=== PATIENT | female | born 1955 | race Caucasian/White ===

== ENCOUNTER 2017-11-04 12:21 | Emergency (ER) | payer OTHER, SELFPAY ==
[2017-11-04 12:22] VITALS: BP 151/78; PULSE 72; RESP 16; TEMP 37.2; O2SAT 100; BMI 29.6
[2017-11-04] MEDS: Diphth,Pertuss(Acell),Tet Vac 0.5 ML Vial IM (13:04)
--- NOTE | 2017-11-04 13:41 | RAD_ITS ---
STUDY: X-RAY - RIGHT KNEE REASON FOR EXAM: Female, 62 years old. Fall today. Anterior pain. TECHNIQUE: 4 view(s) of the knee. COMPARISON: None. FINDINGS: Normal visualized distal femur. Normal visualized proximal tibia and fibula. Normal proximal tibiofibular articulation. Normal medial femorotibial compartment. Normal lateral femorotibial compartment. Normal patellofemoral articulation. There is a 4 mm in diameter radiopaque foreign body embedded within the midportion of the patella. There is subcutaneous gas. RAD/Knee 4 or More Views IMPRESSION: 4 mm in diameter radiopaque foreign body with soft tissue gas as described. Electronically Signed: Maximilian Gamboa MD at 15:26 EDT , Service support ,
--- NOTE | 2017-11-04 13:55 | ED.DCSUM_ITS ---
- ER Visit Summary Date of Service: 11/04/17 Chief Complaint: Patient was walking in the parking lot toward her car when she fell injuring her right knee. History of Present Illness: The patient is a 62 F who presents because of knee pain after fall.She localizes the pain medial to the patella and over the inferior patella tendon. Is able to extend her leg. She states she has minimal movement because of pain. She states she has increased pain with weightbearing. Immunization is not known. She has no other complaints please read written note for complete detail Physical Examination: Examination of the right knee reveals swelling lateral the right patella. The patella is not ballotable nor is it tender. There is no joint line tenderness. There is no laxity with varus valgus stress testing compared to the uninjured extremity. Julia's test was negative. Moderate Cristian's was limited second to pain; however, there was no click. DP PT pulses are palpable. The remainder of her right lower extremity exam is unremarkable. Test Results: 4 view x-ray of the knee reveals a metallic foreign body Emergency Department Course and Treatment: After suturing patient complained of significant pain and there is a small area of tenderness and abnormality. For this reason an x-ray was obtained. Treatment Plan: Patient received tetanus immunization update and repair of her laceration. The wound was anesthetized with lidocaine. Wound was irrigated with 100 cc normal saline. Using 4-0 Vicryl 1 horizontal mattress stitch was placed with good cosmesis and hemostasis. After suturing the patient and speaking with her she states she feels something very painful. Upon reexamination there is a palpable mass that is between the inferior pole of patella and tibial tuberosity. In light of this and x-ray was obtained to determine if this is a avulsion fracture versus foreign body. Stitch that was placed was removed. The laceration was enlarged. Blunt dissection was undertaken. The foreign body was visualized. After dissecting gently the tissue away from the foreign body the Charline and metallic foreign body were removed in total. The Charline is from her gene. Since the foreign body may have been embedded in the infrapatellar tendon she was placed on antibiotics. The laceration was closed using 4-0 Ethilon. 2 simple interrupted sutures was placed. Disposition: Charge to home with appropriate home-going instructions, follow-up and prescription for cephalexin Impression: 1. Left knee contusion secondary to fall initial encounter 2. Laceration 1.0 cm 3. Removal of foreign body This note was generated with [employer] dictation software. It may contain incorrect words, spelling, and punctuation that were not noted in review of the chart prior to signing ED Disposition - Plan for ED Patient: Disposition: Home or Assisted Living Chief Complaint: Lower Extremity Injury Instructions: ED Laceration Ext Sutr Stap Tape, ED Foreign Body Soft Tissue Removed Prescriptions: Cephalexin 500 mg PO Q8 #14 cap Referrals: Care Physician,Rach Primary [Primary Care Provider] - Enriqueta Mora [ALLIED HEALTH PROFESSIONAL] - 2 Days for wound check Additional Instructions: Sutures out in 10 days. Take antibiotics until gone. Clean wound with peroxide on Q-tips and then apply bacitracin 3 times a day. Your prescription was electronically sent to [facility] pharmacy
[2017-11-04 15:43] VITALS: BP 148/74; PULSE 69; RESP 16; O2SAT 100
== END 2017-11-04 15:44 | disposition home or self-care (01) ==
PROVIDERS: Emergency Provider Emergency Medicine
DX: S81.021A Laceration with foreign body, right knee, initial encounter (principal); S80.01XA Contusion of right knee, initial encounter; W18.30XA Fall on same level, unspecified, initial encounter; Y93.01 Activity, walking, marching and hiking; Y92.481 Parking lot as the place of occurrence of the external cause; I10 Essential (primary) hypertension; E66.9 Obesity, unspecified; Z68.29 Body mass index [BMI] 29.0-29.9, adult
CPT/HCPCS: 12001; 73564; 90471; 90715; 99284

== ENCOUNTER 2019-04-16 20:07 | Emergency (ER) | payer OTHER, SELFPAY ==
[2019-02-08 10:35] VITALS: BMI 29.6
[2019-04-16 20:09] VITALS: BP 161/94; PULSE 89; RESP 16; TEMP 37.1; O2SAT 99; BMI 30.9
--- NOTE | 2019-04-16 20:23 | ED.RN ---
RN CALLED FOR EKG, PULLED OLD EKGS FOR
--- NOTE | 2019-04-16 20:55 | EKG12_ITS ---
Test Reason : CP Blood Pressure : / mmHG Vent. Rate : 085 BPM Atrial Rate : 085 BPM P-R Int : 154 ms QRS Dur : 070 ms QT Int : 358 ms P-R-T Axes : 040 -10 027 degrees QTc Int : 426 ms Normal sinus rhythm Moderate voltage criteria for LVH, may be normal variant Nonspecific ST abnormality Abnormal ECG Confirmed by NINA SEVILLA ([id number]), department editor LEONIE BURGOS ([id number]) on 04/17/2019 1:36:41 PM Referred By: Confirmed By:NINA SEVILLA
--- NOTE | 2019-04-16 21:00 | RAD_ITS ---
HISTORY: Chest pain 1 week from fall XR Chest 1 View TECHNIQUE: Single frontal view of chest. # of images incl. paperwork: 1 COMPARISON: None. FINDINGS: LINES: None. CARDIOVASCULAR STRUCTURES: Normal cardiomediastinal silhouette. Pulmonary vasculature appears normal. LUNGS: The lungs are clear. PLEURA: No pleural effusions or pneumothorax. BONES: No acute osseous abnormality of the thorax. RAD/Chest 1 View (Portable) IMPRESSION: 1. No acute cardiopulmonary disease. at 2310 Reported and signed by: Bhaskar Balderas MD Electronically Signed: Bhaskar Balderas MD at 23:09 EDT Tel , Service support ,
--- NOTE | 2019-04-16 21:27 | CT_ITS ---
HISTORY: Status post fall with abdominal pain COMPARISON: 10/11/2010 TECHNIQUE: Helical CT axial images from the lung bases to the pubic symphysis with 75 ml of Isovue 370 intravenous contrast. Multiplanar reconstruction. No oral contrast was administered. A radiation dose optimization technique was used for this scan. # of images incl. paperwork: 403 FINDINGS: LUNG BASES: No basilar consolidation or effusions. LIVER: Normal in size and attenuation. No focal masses. HEPATOBILIARY: Status post cholecystectomy. No intra- or extrahepatic ductal dilatation. SPLEEN: Normal size. PANCREAS: Normal size and contour. No focal mass. ADRENAL GLANDS: Stable appearance of left adrenal gland 0.8 cm hypodense nodule. Normal right adrenal gland. KIDNEYS: No obstructing calculi or hydronephrosis bilaterally. No nephrolithiasis. No focal solid renal mass. No significant cysts are present. BOWEL AND MESENTERY: Diffuse colonic fecal retention without bowel dilatation. No small or large bowel dilatation. No colonic diverticulosis. Normal appendix. No abnormal mesenteric lymphadenopathy. No free fluid or pneumoperitoneum. RETROPERITONEUM:Normal caliber abdominal aorta without aneurysm. No abnormal retroperitoneal lymphadenopathy. PELVIS:Urinary bladder is unremarkable.Uterus and adnexal structures are unremarkable. ABDOMINAL WALL: The abdominal wall is intact. BONES: No acute fracture. No suspicious osseous lytic or blastic lesions seen. CT/Abdomen/Pelvis WITH Contrast IMPRESSION: 1. No acute disease or evidence for traumatic injury to abdominal organs or viscera. 2. Status post cholecystectomy. 3. Left adrenal gland 0.8 cm hypodense nodule, most likely representing adenoma, unchanged from September 2010. Individualized dose optimization techniques were used for this CT. at 2224 Reported and signed by: Bhaskar Balderas MD Electronically Signed: Bhaskar Balderas MD at 22:23 EDT Tel , Service support ,
--- NOTE | 2019-04-16 21:27 | CT_ITS ---
HISTORY: Right sided chest wall pain, status post fall COMPARISON: None. TECHNIQUE: Helical CT axial images of the thorax with 75 ml of Isovue 370 intravenous contrast. Multiplanar reconstruction. 3-D image processing was also performed. A radiation dose optimization technique was used for this scan. # of images incl. paperwork: 1090 FINDINGS: VASCULAR: No filling defects are seen within the pulmonary arteries. Normal contrast opacification of the pulmonary arteries. Thoracic aorta is normal in caliber without aneurysm. No aortic dissection. The pulmonary vasculature demonstrates no significant dilatation. LUNGS: The lung parenchyma is clear. No pulmonary masses or suspicious nodules. MEDIASTINUM: No abnormally enlarged mediastinal or hilar nodes. PLEURA: No pleural effusion. No pneumothorax. CARDIAC: Normal heart size. No pericardial effusion. CHEST WALL: Old left healed anterior left third through sixth rib fractures. No acute rib fracture. Chest wall is intact. No abnormal axillary lymphadenopathy. BONES: No suspicious osseous lytic or blastic lesions seen. UPPER ABDOMEN: The visualized upper abdomen demonstrates no acute abnormality. CT/CTA Chest W/WO Contrast IMPRESSION: 1. No acute pulmonary embolus. 2. No acute disease or evidence for traumatic injury to chest. 3. Old healed left anterior third through sixth rib fractures. Individualized dose optimization techniques were used for this CT. at 2228 Reported and signed by: Bhaskar Balderas MD Electronically Signed: Bhaskar Balderas MD at 22:27 EDT Tel , Service support ,
[2019-04-16 21:33] LABS: Absolute Lymphocyte Count 2.21 X10^3/uL (0.83-4.51); Absolute Neutrophil Count 4.8 X10^3/uL (2.0-7.7); Basophil# 0.05 X10^3/uL; Basophil% 0.6 % (0-1); Eosinophil# 0.17 X10^3/uL; Eosinophils% 2.2 % (0-5); Hematocrit 38.7 % (37-47); Hemoglobin 12.4 g/dL (12.0-15.0); Lymphocyte # 2.21 X10^3/ul (4.0); Lymphocyte % 28.4 % (19-41); Mean Corpuscular Hgb 28.2 pg (27.0-32.0); Mean Corpuscular Volume 88.2 fL (81-99); Mean Platelet Vol. 10.3 fl (6.2-12.0); Monocyte# 0.56 X10^3/uL; Monocyte% 7.2 % (0-10); NRBC Flagged by Analyzer 0 % (0-5); Neutrophil # 4.77 X10^3/uL (2.7-7.7); Neutrophil % 61.5 % (47-70); Platelet Count 278 K/mm3 (150-450); RBC Distribution Width CV 13.2 % (11.6-14.6); RBC Distribution Width SD 43.3 fl (35.1-43.9); Red Blood Count 4.39 M/mm3 (4.2-5.4); White Blood Count 7.8 K/mm3 (4.4-11.0)
[2019-04-16] MEDS: Morphine 4 MG/ML Syringe IV (21:35)
[2019-04-16] MEDS: Ondansetron 4 MG/2 ML Vial IV (21:35)
[2019-04-16 21:42] LABS: Anion Gap 7 (5-15); BUN 21 mg/dL (7-18); BUN/Creat Ratio 20.6 RATIO (10-20); Calcium,Total 9.3 mg/dL (8.5-10.1); Chloride 104 mmol/L (98-107); Creatinine, Serum 1.02 mg/dL (0.55-1.02); EST Glomerular Filtration Rate 58 mL/min (>60); Est Glom Filt Rate - Afr Amer 71 mL/min (>60); Estimated Creatinine Clearance 43.15 ml/min; Glucose 98 mg/dL (74-106); Potassium 3.7 mmol/L (3.5-5.1); Sodium Level 140 mmol/L (136-145)
[2019-04-16 22:24] VITALS: BP 145/86; PULSE 95; RESP 14; O2SAT 93
--- NOTE | 2019-04-16 23:06 | ED.DEP ---
ED Disposition - Plan for ED Patient: Instructions: Chest Wall Contusion Prescriptions: Oxycodone HCl/Acetaminophen [Percocet 5/325] 1 tablet PO Q6H PRN PRN 3 Days #12 tablet PRN Reason: Pain Referrals: Enriqueta Mora NP-C [Primary Care Provider] -
--- NOTE | 2019-04-16 23:12 | ED.VISSUMM ---
- ER Visit Summary Date of Service: 04/16/19 Chief Complaint: Chest wall pain History of Present Illness: The patient is a 64 F presenting with chest wall pain. Patient states she fell approximately 8 days ago. [place] fell. She did not hit her head or lose consciousness. She has an abrasion to her right lower extremity and has left chest wall pain. Chest wall pain is worsened with different positions and movement. It has been constant for the past several days. Tetanus is up-to-date. She has been taking amoxicillin for her abrasion. She has been taking ibuprofen. She denies shortness of breath. Denies other complaints. Physical Examination: Vitals are stable. Patient is afebrile. Alert no acute distress. HEENT exam is unremarkable. Neck is nontender Lungs are clear and equal bilaterally. Left chest wall tenderness with no crepitus Heart is regular rate and rhythm. Abdomen is soft nontender nondistended. Extremities healing abrasion right lower extremity Skin is warm and dry. No focal neurologic deficit. Remainder of exam is unremarkable. Emergency Department Course and Treatment: EKG is sinus rhythm rate of 85 with no acute ischemic changes. Patient was given morphine, Zofran IV. CBC, chemistries unremarkable. Troponin is negative. CTA chest shows no acute pulmonary embolus. No acute disease or evidence for traumatic injury to chest. Old healed left anterior third through sixth rib fractures. CT abdomen pelvis with IV only contrast shows no acute disease or evidence for traumatic injury to abdominal organs or viscera. Status post cholecystectomy. Left adrenal gland 0.8 cm hypodense nodule, most likely representing adenoma, unchanged from September 2010. Patient is feeling improved on reevaluation. She is given a prescription for short course of Percocet. She is given an incentive spirometer. Advised to follow-up with her primary care physician. Advised return to ED for worsening complaints. Disposition: Discharge home Impression: Chest wall contusion status post mechanical fall This note was generated with [employer] dictation software. It may contain incorrect words, spelling, and punctuation that were not noted in review of the chart prior to signing ED Disposition - Plan for ED Patient: Instructions: Chest Wall Contusion Prescriptions: Oxycodone HCl/Acetaminophen [Percocet 5/325] 1 tab PO Q6H PRN PRN 3 Days #12 tab PRN Reason: Pain Prescription Printed Referrals: Enriqueta Mora, [employer] MANAGER-C [Primary Care Provider] -
== END 2019-04-16 23:39 | disposition home or self-care (01) ==
PROVIDERS: Emergency Provider Emergency Medicine; Family Provider Nurse Practitioner; PCP Nurse Practitioner
DX: S20.212A Contusion of left front wall of thorax, initial encounter (principal); W01.0XXA Fall on same level from slipping, tripping and stumbling without subsequent striking against object, initial encounter; Y93.89 Activity, other specified; Y92.89 Other specified places as the place of occurrence of the external cause; Y99.9 Unspecified external cause status; I10 Essential (primary) hypertension; Z79.899 Other long term (current) drug therapy
CPT/HCPCS: 71045; 71275; 74177; 80048; 84484; 85025; 93005; 96374; 96375; 99284; Q9967; A4216; J2405

== ENCOUNTER → 2019-04-17 14:09 | Outpatient (CLI) | payer OTHER, SELFPAY ==
[2019-04-16 20:09] VITALS: BMI 30.9
[2019-04-17 15:00] LABS: Vitamin B12 > 2000 pg/mL (211-911); Vitamin D,25 Hydroxy 58.5 ng/mL (29.95-100.01)
[2019-04-17 15:09] LABS: Hemoglobin A1c 5.6 % (4.2-6.3)
[2019-04-17 15:38] LABS: Cholesterol 168 mg/dL (200); Folates, (Folic Acid) > 100.00 ng/mL (3.1-55.4); High Density Lipoprotein 69 mg/dL; Triglycerides 99 mg/dL; Very Low Density Lipoprotein 20 mg/dL (5-40)
== END ==
PROVIDERS: Family Provider Nurse Practitioner; PCP Nurse Practitioner; Referring Provider Nurse Practitioner; Visit Provider Nurse Practitioner
DX: R73.01 Impaired fasting glucose (principal); E78.00 Pure hypercholesterolemia, unspecified; E53.8 Deficiency of other specified B group vitamins; E55.9 Vitamin D deficiency, unspecified
CPT/HCPCS: 80061; 82306; 82607; 82746; 83036

== ENCOUNTER 2021-04-24 13:14 | Emergency (ER) | payer OTHER, SELFPAY ==
[2021-04-24 13:15] VITALS: BP 169/96; PULSE 118; RESP 19; TEMP 36.7; O2SAT 100; BMI 30.2
--- NOTE | 2021-04-24 14:06 | RAD_ITS ---
STUDY: X-RAY CHEST REASON FOR EXAM: Female, 66 years old. sob TECHNIQUE: Frontal portable view of the chest COMPARISON: 16 April 2019 FINDINGS: The lungs are clear and expanded. There is no demonstrated pleural abnormality. Normal size heart. Normal mediastinum and adri. Normal visualized pulmonary arteries. Normal visualized aortic arch and descending thoracic aorta. Normal visualized thoracic spine. Normal visualized ribs, clavicles, and shoulders. There is no demonstrated abnormality of the visualized soft tissue structures of the upper abdomen. RAD/Chest 1 View (Portable) IMPRESSION: Normal x-ray examination of the chest. Electronically Signed: Jasmin Agrawal MD at 15:27 EDT Tel , Service support ,
--- NOTE | 2021-04-24 14:06 | CT_ITS ---
STUDY: CT BRAIN WITHOUT CONTRAST REASON FOR EXAM: Female, 66 years old. Trauma RADIATION DOSAGE (If Supplied By Facility): CTDIvol = ( 44.99 ) mGy, DLP = ( 779.24 ) mGycm TECHNIQUE: Transaxial CT imaging of the brain was performed without administration of intravenous contrast material. Individualized dose optimization techniques were used for this CT. COMPARISON: October 29, 2015 CT head, FINDINGS: Normal soft tissue structures. Normal calvarium. There is mild cerebral atrophy with widening of the extra-axial spaces and ventricular dilatation. Normal white matter tracts of the cerebral hemispheres. Normal basal ganglia and thalami. Normal brainstem. There is mild cerebellar atrophy. There is no intracranial hemorrhage. There are no findings of an acute ischemic infarction. Normal visualized paranasal sinuses. CT/Brain/Head without Contrast IMPRESSION: Atrophy no evidence of acute hemorrhage infarct or edema. Electronically Signed: Nunu Bernard MD at 15:18 EDT Tel , Service support ,
--- NOTE | 2021-04-24 14:06 | CT_ITS ---
EXAM: CT CERVICAL SPINE WITHOUT INTRAVENOUS CONTRAST : 1955 CLINICAL INDICATION: trauma TECHNIQUE: Helically acquired images were obtained of the cervical spine without intravenous contrast. 2D reformatted images were reviewed. This CT exam was performed using one or more of the following dose reduction techniques: automated exposure control, adjustment of the mA and/or kV according to patient size, and/or use of iterative reconstruction technique. This report was created using [employer] report generation technology. COMPARISON: None. FINDINGS: VERTEBRAE: Unremarkable. No fracture. No traumatic subluxation. No discrete lytic or blastic abnormality. Normal alignment. Normal craniocervical junction and cervicothoracic junction. DISCS/SPINAL CANAL/NEURAL FORAMINA: There is disc space narrowing at C4-5 and C6 - 7. There is left bony neural foraminal narrowing at C5-6. SOFT TISSUES: Unremarkable. No prevertebral soft tissue swelling. LYMPH NODES: Unremarkable. No cervical adenopathy. LUNG APICES: Unremarkable as visualized. Clear. CT/Spine Cervical without Contras IMPRESSION: 1. No acute osseous abnormalities of the cervical spine. 2. Degenerative changes with disc space narrowing and bony neural foraminal narrowing. Individualized dose optimization techniques were used for this CT. at 1529 Reported and signed by: Prosper Ferrer MD Electronically Signed: Prosper Ferrer MD at 15:28 EDT Tel , Service support ,
[2021-04-24] MEDS: HYDROcodone Bitartrate/Apap 5/325 Tablet PO (14:19)
[2021-04-24] MEDS: Ondansetron ODT 4 MG Tablet PO (14:19)
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
[2021-04-24 16:22] VITALS: BP 155/87; PULSE 82; RESP 16; O2SAT 100
[2021-04-24 16:25] VITALS: BP 155/87; PULSE 82; RESP 16; O2SAT 100
== END 2021-04-24 16:23 | disposition home or self-care (01) ==
PROVIDERS: Emergency Provider Emergency Medicine; PCP Nurse Practitioner
DX: S06.0X0A Concussion without loss of consciousness, initial encounter (principal); V49.88XA Car occupant (driver) (passenger) injured in other specified transport accidents, initial encounter
CPT/HCPCS: 70450; 71045; 72125; 87426; 99282

== ENCOUNTER 2021-06-22 13:49 | Emergency (ER) | payer OTHER, SELFPAY ==
[2021-06-22 13:49] VITALS: BP 149/102; PULSE 136; RESP 16; TEMP 36.8; O2SAT 98; BMI 28.9
--- NOTE | 2021-06-22 13:52 | RAD_ITS ---
STUDY: X-RAY CHEST REASON FOR EXAM: Female, 66 years old. Chest pain TECHNIQUE: Single AP portable view of the chest. COMPARISON: Comparison is made with prior study dated 04/24/2021. FINDINGS: EKG electrodes are seen There is elevation of the right hemidiaphragm. The lungs are clear. There is no demonstrated pleural abnormality. Normal size heart. Normal mediastinum and adri. Normal visualized pulmonary arteries. There is atherosclerotic tortuosity of the aortic arch and descending thoracic aorta. Normal visualized thoracic spine. Normal visualized ribs, clavicles, and shoulders. There is no demonstrated abnormality of the visualized soft tissue structures of the upper abdomen. RAD/Chest 1 View (Portable) IMPRESSION: No acute abnormality is seen. Electronically Signed: Keanu Boone MD at 15:46 EST , Service support ,
--- NOTE | 2021-06-22 13:52 | EKG12_ITS ---
Test Reason : CP Blood Pressure : / mmHG Vent. Rate : 122 BPM Atrial Rate : 122 BPM P-R Int : 152 ms QRS Dur : 064 ms QT Int : 304 ms P-R-T Axes : 052 001 121 degrees QTc Int : 433 ms Sinus tachycardia with Premature atrial complexes Possible Left ventricular hypertrophy ST segment abnormality: Consider LVH repolarization; Myocardial ischemia; metabolic effect; medicatio n effect Abnormal ECG Confirmed by NELDA PAYNE, LORIE ([id number]), editor department JAGDISH ARAGON ([id number]) on 06/24/2021 8:51:07 AM Referred By: JAY/DEN Confirmed By:LORIE LUTZ MD
--- NOTE | 2021-06-22 14:17 | CT_ITS ---
STUDY: CTA CHEST AND CTA ABDOMEN/PELVIS WITH CONTRAST REASON FOR EXAM: Female, 66 years old. Chest pain. Left shoulder pain. RADIATION DOSAGE (If Supplied By Facility): CTDIvol = ( 13.12 ) mGy, DLP = ( 907.34 ) mGycm TECHNIQUE: The examination was performed with the intravenous administration of IV 100mL Isovue-370. Post-processing of the angiographic images was performed, with multiplanar reformation and 3D reconstruction. Individualized dose optimization techniques were used for this CT. COMPARISON: No relevant priors. FINDINGS: CTA Chest Normal enhancement of the main pulmonary artery and right and left pulmonary arteries. Normal enhancement of the bilateral peripheral pulmonary arteries. There is no demonstrated pulmonary embolism. Normal thoracic aorta and visualized great vessels. There is no demonstrated aortic dissection. Normal heart and pericardium. Normal mediastinum. Normal hilar regions. Normal visualized trachea and bronchi. The lungs are well expanded. Normal pulmonary parenchyma. Normal pleura. Normal chest wall structures. Normal osseous structures. Normal visualized upper abdomen. CT Abdomen T Pelvis There is decreased attenuation of the liver consistent with steatosis. The patient is status post cholecystectomy. Normal spleen. Normal pancreas. There is a small, circumscribed, smooth, low attenuation left adrenal mass, consistent with an adrenal adenoma. This measures 1.3 cm. Normal right adrenal gland. Normal right kidney. Normal left kidney. Normal visualized stomach. Normal small intestine. Normal colon. The appendix is visualized and appears normal. Normal abdominal aorta. Normal inferior vena cava. Normal retroperitoneum. Normal urinary bladder. Normal abdominal wall. Prior fusion at the L4-L5 level. Anterior listhesis of L4 on L5. CT/CTA Chst, Abd, Pel W and/or WO IMPRESSION: No acute abnormality is seen. Electronically Signed: Keanu Boone MD at 15:43 EST , Service support ,
--- NOTE | 2021-06-22 14:23 | EX.ED.DYSGE1 ---
HPI History of Present Illness Chief Complaint: Chest Pain Narrative Narrative: Patient is a 66-year-old female who states she has had constant chest/back pain since Monday. She denies any trauma prior to the pain beginning. She states the pain began around her left scapula and is sharp in nature and then over time has progressed to shoot to the front of her left chest. She denies any nausea vomiting diaphoresis or shortness of breath associated with this. She denies any previous DVT or PE but does admit to driving constantly. She states that symptoms have not resolved spontaneously and secondary to this presents for evaluation [facility] Medical History (Updated 06/22/21 @ 17:[address] 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 HTN (hypertension) Incontinence Limb weakness Migraines Home Medications hydrochlorothiazide 25 mg PO DAILY 04/04/16 [History Last Taken 06/22/21] duloxetine 60 mg capsule,delayed release 60 mg PO DAILY #30 cap 02/08/19 [History Last Taken 06/22/21] calcium carbonate [Calcium 500] 500 mg PO DAILY 06/22/21 [History Last Taken 06/22/21] cholecalciferol (vitamin D3) 125 mcg PO DAILY 06/22/21 [History Last Taken 06/22/21] cyanocobalamin (vitamin B-12) 1,000 mcg PO DAILY 06/22/21 [History Last Taken 06/22/21] hydrocodone-acetaminophen 1 tab PO Q6H PRN 5 Days #20 tab 06/22/21 [Rx Last Taken Unknown] methylphenidate HCl 20 mg PO DAILY 06/22/21 [History Last Taken 06/22/21] multivitamin 1 tab PO DAILY 06/22/21 [History Last Taken 06/22/21] Allergy/AdvReac Type Severity Reaction Status Date / Time No Known Allergies Allergy Verified 06/22/21 13:51 Family History Other Diabetes Heart disease Hypertension Surgical History Hx of cholecystectomy Social History (Updated 02/08/19 @ 11:00 by Miguel NELSON, PA) Smoking Status: Never smoker alcohol intake: current alcohol intake frequency: a few times a month Alcohol type: beer and wine ROS ROS ED Constitutional Constitutional ED: Denies chills or fever(s) ENT ENT ED: Denies sore throat Cardiovascular Cardiovascular: Reports chest pain; Denies palpitations or racing heartbeat Respiratory/Chest Respiratory/Chest: Denies cough or dyspnea Gastrointestinal Gastrointestinal: Denies abdominal pain, diarrhea, nausea or vomiting Genitourinary Genitourinary ED: Denies dysuria Musculoskeletal Musculoskeletal: Reports back pain; Denies myalgias Integumentary Denies rash Neurologic Neurologic: Denies headache(s) Hematologic/Lymphatic Hematologic/Lymphatic: Denies easy bleeding or easy bruising EXAM Physical Exam Const Vital Signs: 06/22/21 13:49 06/22/21 14:13 06/22/21 15:35 Temperature 98.3 F Temperature Source Temporal Pulse Rate 136 H 95 Respiratory Rate 16 19 H Respiratory Effort Normal Non-Labored Blood Pressure 149/102 H 129/71 H Blood Pressure Mean 117 90 Pulse Ox 98 99 Oxygen Delivery Method Room Air Room Air Room Air 06/22/21 16:06 Temperature Temperature Source Pulse Rate 93 Respiratory Rate 16 Respiratory Effort Blood Pressure 141/84 H Blood Pressure Mean 103 Pulse Ox 97 Oxygen Delivery Method Room Air Positive well nourished and well developed General Appearance ED: well developed HEENT Reports moist mucous membranes Eyes PERRL and EOMs intact bilaterally Neck supple Chest Wall palpation of chest normal Resp normal respiratory effort and clear to auscultation bilaterally Cardio regular rate and regular rhythm Rate: other Other Details: Radial pulses are +2-4 bilaterally are equal and symmetric GI normal to inspection, nondistended, normoactive bowel sounds, non-tender, non-distended and no masses GI Narrative: No voluntary guarding or rigidity no pulsatile mass Auscultation: normoactive bowel sounds Palpation: soft Back/Spine no CVA tenderness Extremity Extremity Narrative: Trace asymmetric nonpitting edema to the left leg compared to right with positive Homans' sign on left Neuro oriented x3 and CN's II-XII intact bilaterally Sensorium / Orientation: alert Motor Exam: strength 5/5 throughout Psych mental status grossly normal Skin no rashes or lesions noted MDM MDM MDM Narrative Medical decision making narrative: Patient presented to the ER tachycardic but otherwise in no acute distress with stable vitals. Her chest pain has been constant for 3 days and was not classic cardiac in nature. However she does drive quite often and therefore I elected to perform a CTA with concern for PE versus is aneurysm/dissection. The patient's troponin is normal going against heart damage with 3 days of constant pain and her CTA reveals no acute findings. Therefore this time I do not feel this is cardiac in nature and it is most likely related to ruptured disks in her neck. 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 Labs: Laboratory Results - last 24 hr 06/22/21 06/22/21 06/22/21 14:10 14:10 14:10 WBC 6.7 RBC 4.88 Hgb 13.7 Hct 41.4 MCV 84.8 MCH 28.1 MCHC 33.1 RDW Std Deviation 40.8 RDW Coeff of Kevin 13.1 Plt Count 329 MPV 9.9 Immature Gran % (Auto) 0.100 Neut % (Auto) 62.2 Lymph % (Auto) 28.2 [place] % (Auto) 7.8 Eos % (Auto) 1.0 Baso % (Auto) 0.7 Absolute Neuts (auto) 4.1 Absolute Lymphs (auto) 1.88 Nucleated RBC % 0 PT 12.7 INR 1.0 APTT 28.4 Sodium 137 Potassium 3.2 L Chloride 100 Carbon Dioxide 29.0 Anion Gap 8 BUN 12 Creatinine 1.02 Estim Creat Clear Calc 44.07 Est GFR (MDRD) Af Amer 70 Est GFR (MDRD) Non-Af 58 L BUN/Creatinine Ratio 11.8 Glucose 131 H Calcium 9.5 Magnesium 2.1 Troponin I High Sens 8 TSH 0.59 Radiography Diagnostic Testing: Clinical Impression(s) from Imaging Studies Chest X-Ray 06/22/21 13:52 IMPRESSION: No acute abnormality is seen. Electronically Signed: Keanu Boone MD at 15:46 EST , Service support , Chest/Abdomen/Pelvis CTA 06/22/21 14:17 IMPRESSION: No acute abnormality is seen. Electronically Signed: Keanu Boone MD at 15:43 EST , Service support , Discharge Plan Triage Chief Complaint: Chest Pain ED Provider: Frankie Ni Dx/Rx/DC Orders Clinical Impression: Nonspecific chest pain, Sinus tachycardia Instructions: ED Chest Pain, Noncardiac Prescriptions: New hydrocodone-acetaminophen 5-325 mg tablet 1 tab PO Q6H PRN (Reason: pain) 5 Days Qty: 20 RF: 0 No Action duloxetine 60 mg capsule,delayed release(DR/EC) 60 mg PO DAILY Qty: 30 RF: 0 hydrochlorothiazide 25 MG tablet 25 mg PO DAILY RF: 0 multivitamin Tablet 1 tab PO DAILY RF: 0 methylphenidate HCl 20 mg tablet 20 mg PO DAILY RF: 0 cyanocobalamin (vitamin B-12) 1,000 mcg Tablet 1,000 mcg PO DAILY RF: 0 calcium carbonate [Calcium 500] 500 mg calcium (1,250 mg) Tablet 500 mg PO DAILY RF: 0 cholecalciferol (vitamin D3) 125 mcg (5,000 unit) Capsule 125 mcg PO DAILY RF: 0 Primary Care Provider: Enriqueta Mora NP Referrals: Enriqueta Mora SALES TRAINEE, SALES TRAINEE-C [Primary Care Provider] - Disposition Disposition: Home, Self Care
[2021-06-22 14:26] LABS: Absolute Lymphocyte Count 1.88 X10^3/uL (0.83-4.51); Absolute Neutrophil Count 4.1 X10^3/uL (2.0-7.7); Basophil# 0.05 X10^3/uL; Basophil% 0.7 % (0-1); Eosinophil# 0.07 X10^3/uL; Hematocrit 41.4 % (37-47); Hemoglobin 13.7 g/dL (12.0-15.0); Lymphocyte # 1.88 X10^3/ul (0.83-4.51); Lymphocyte % 28.2 % (19-41); Mean Corp Hgb Conc 33.1 g/dL (32-36); Mean Corpuscular Hgb 28.1 pg (27.0-32.0); Mean Corpuscular Volume 84.8 fL (81-99); Mean Platelet Vol. 9.9 fl (6.2-12.0); Monocyte# 0.52 X10^3/uL; Monocyte% 7.8 % (0-10); NRBC Flagged by Analyzer 0 % (0-5); Neutrophil # 4.14 X10^3/uL (2.7-7.7); Neutrophil % 62.2 % (47-70); Platelet Count 329 K/mm3 (150-450); RBC Distribution Width CV 13.1 % (11.6-14.6); RBC Distribution Width SD 40.8 fl (35.1-43.9); Red Blood Count 4.88 M/mm3 (4.2-5.4); White Blood Count 6.7 K/mm3 (4.4-11.0)
[2021-06-22] MEDS: 0.9% Normal Saline 1,000 ML 999 ML IV (14:28)
[2021-06-22 14:45] LABS: Prothrombin Time (Protime)PT. 12.7 SECONDS (11.7-14.9)
[2021-06-22 14:53] LABS: Partial Thromboplast Time 28.4 Seconds (24.1-36.2)
[2021-06-22 15:03] LABS: Anion Gap 8 (5-15); BUN 12 mg/dL (7-18); BUN/Creat Ratio 11.8 RATIO (10-20); Calcium,Total 9.5 mg/dL (8.5-10.1); Chloride 100 mmol/L (98-107); Creatinine, Serum 1.02 mg/dL (0.55-1.02); EST Glomerular Filtration Rate 58 mL/min (>60); Est Glom Filt Rate - Afr Amer 70 mL/min (>60); Estimated Creatinine Clearance 44.07 ml/min; Glucose 131 mg/dL (74-106); Magnesium 2.1 mg/dL (1.6-2.6); Potassium 3.2 mmol/L (3.5-5.1); Sodium Level 137 mmol/L (136-145); Thyroid Stim Hormone (TSH) 0.59 uIU/mL (0.358-3.74); Troponin-I HS 8 pg/mL (3.0-54.0)
[2021-06-22] MEDS: Ondansetron 4 MG/2 ML Vial IV (15:32)
[2021-06-22] MEDS: Morphine 4 MG/ML Syringe IV (15:32)
[2021-06-22 15:35] VITALS: BP 129/71; PULSE 95; RESP 19; O2SAT 99
[2021-06-22 16:06] VITALS: BP 141/84; PULSE 93; RESP 16; O2SAT 97
--- NOTE | 2021-06-22 18:19 | PN.HOSP_ITS ---
Hospitalist Note Patient was seen and examined today in the emergency room at [facility], she came in to the emergency room for evaluation of chest pain which has radiated from her upper back area over the last 3 days, she states the chest pain has been continuous-it is described as sharp in nature, it is affected by movement-sometimes this makes it worse. Patient also has some complaints of pain down her left arm and in her left shoulder at times. Patient's chest pain is not brought on with exertion. Patient has a history of degenerative disc disease of the cervical spine. I was asked to evaluate the patient for possible admission for a chest pain work-up. Work-up in the emergency room included an EKG which showed nonspecific ST-T wave changes, no injury pattern was noted to be present. Patient's chest x-ray was unremarkable, CTA of the chest did not show any evidence of pulmonary embolism or abnormality. Examination of the patient in the emergency room revealed some reproduction of the patient's chest discomfort when flexing her neck to the left, lungs were clear to auscultation bilaterally and heart rate and rhythm is regular without ectopy or murmur. At this time, patient feels comfortable with discharge home, I think it is likely that the patient's chest discomfort and left upper back discomfort is musculoskeletal in nature, I requested that the emergency room physician give the patient Depo-Medrol 80 mg IM, provide her a prescription for a small amount of [place] 5/325 to take for pain, and I have requested that the patient follow-up with her PCP on Monday of this week. I told the patient she could return to the emergency room for reevaluation of the discomfort became worse. The patient's only risk factor for coronary artery disease is her history of hypertension, she is not diabetic, she is a non-smoker, she has no history of heart disease, she does not have a history in her family of early cardiac disease, and she has no history of hyperlipidemia. Again, I feel it is unlikely that the patient's chest discomfort is cardiac in nature.
[2021-06-22] MEDS: MethylPREDNISolone Acetate 40 MG/ML Vial 80 MG IM (18:40)
[2021-06-22 18:44] VITALS: BP 125/85; PULSE 81; RESP 18; O2SAT 98
== END 2021-06-22 18:45 | disposition home or self-care (01) ==
PROVIDERS: Emergency Provider Emergency Medicine; PCP Nurse Practitioner
DX: R07.9 Chest pain, unspecified (principal); R00.0 Tachycardia, unspecified; Z79.899 Other long term (current) drug therapy
CPT/HCPCS: 71045; 71275; 74174; 80048; 83735; 84443; 84484; 85025; 85610; 85730; 93005; 96372; 96374; 96375; 99283; J7030; Q9967; A4216; J2405

== ENCOUNTER → 2021-08-12 14:49 | Outpatient (CLI) | payer OTHER, SELFPAY ==
--- NOTE | 2021-08-12 14:51 | BI_ITS ---
MAMMOGRAPHY - BILATERAL SCREENING REASON FOR EXAM: Female, 66 years old. Routine annual screening examination. PERTINENT HISTORY: Aunt with breast cancer. TECHNIQUE: Digital bilateral breast brynn (3D mammographic acquisition) in the CC and MLO projections. 2-D mediolateral oblique (MLO) and craniocaudad (CC) views of both breasts were obtained. CAD: Full Field Digital Mammography with Computer Added Detection was performed. COMPARISON: Comparison is made with prior study dated 09/22/2016 and 01/28/2013. FINDINGS: Breast Composition: There are scattered areas of fibroglandular density. There are no dominant masses or suspicious calcifications. No other significant abnormalities are identified. There has been no significant change since the prior study. BI/SCRN MAMM (CAD)W/BRYNN BILAT IMPRESSION: Stable bilateral screening mammogram. Yearly follow-up mammogram recommended. (A) ASSESSMENT CATEGORY: BIRADS Category 1: Negative. A letter regarding these results will be sent to the patient by the facility within 30 days. Approximately 10% of breast cancers are not detected by mammography. A normal mammogram should not delay biopsy of a clinically suspicious abnormality. [id number] Electronically Signed: Keanu Boone MD at 8:33 EST , Service support ,
--- NOTE | 2021-08-12 14:52 | BD_ITS ---
STUDY: DUAL ENERGY X-RAY ABSORPTIOMETRY / DXA REASON FOR EXAM: Female, 66 years old. [id number]. The patient is postmenopausal. TECHNIQUE: Bone Mineral Density (BMD) measurements of lumbar spine and bilateral hips were obtained. COMPARISON: Comparison is made with prior study dated 09/22/2016. FINDINGS: Lumbar Spine (L1-L4): g/cm2 (0.771) / T-score (-1.9) / Z-score (-0.3) Findings are suggestive of osteopenia with a moderate fracture risk. Left Femur Total: g/cm2 (0.829) / T-score (-0.9) / Z-score (0.3) Left Femoral Neck: g/cm2 (0.650) / T-score (-1.8) / Z-score (-0.3) Right Femur Total: g/cm2 (0.886) / T-score (-0.5) / Z-score (0.7) Right Femoral Neck: g/cm2 (0.699) / T-score (-1.3) / Z-score (0.1) The T-Scores on the most recent prior examination were: Lumbar Spine (L1-L4): There has been worsening of bone density since the previous examination. Left Femur Total: which represents a worsening of 4.4%. Right Femur Total: which represents an improvement of 1.7%. BD/Dexa Bone Density Study IMPRESSION: The patient is considered osteopenic as outlined below according to World Sumit Organization (WHO) criteria with a moderate fracture risk. There has been worsening of bone density since the previous examination. Reference Information: The T-score is the number of standard deviations above or below the standard which is normal for young adults at their peak bone mineral density. The World Health Organization (WHO) interprets the T-scores as follows: Above -1 Normal bone density Between -1 and -2.5 Osteopenia Equal to / or below -2.5 Osteoporosis As a practical clinical guideline, osteopenia may be graded as follows: Mild -1 through -1.5 Moderate -1.6 through -2.0 Severe -2.1 through -2.4 The Z-score is the number of standard deviations above or below age-matched controls. A Z-score of less than -1.5 would be considered abnormal. References: 1. NIH Osteoporosis and Related Bone Diseases www osteo.org 2. International Society for Clinical Densitometry www iscd.org 3. National Osteoporosis Foundation www nof.org Electronically Signed: Keanu Boone MD at 9:36 EST , Service support ,
== END ==
PROVIDERS: PCP Nurse Practitioner; Visit Provider Nurse Practitioner
DX: Z78.0 Asymptomatic menopausal state (principal); Z12.31 Encounter for screening mammogram for malignant neoplasm of breast
CPT/HCPCS: 77063; 77067; 77080

== ENCOUNTER → 2023-01-05 | Outpatient (CLI) | payer MEDICARE, OTHER, SELFPAY ==
--- NOTE | 2023-01-05 13:04 | BI_ITS ---
MAMMOGRAPHY - BILATERAL SCREENING REASON FOR EXAM: Female, 67 years old. Routine annual screening examination. PERTINENT HISTORY: Aunt with breast cancer. TECHNIQUE: Digital bilateral breast brynn (3D mammographic acquisition) in the CC and MLO projections. 2-D mediolateral oblique (MLO) and craniocaudad (CC) views of both breasts were obtained. CAD: Full Field Digital Mammography with Computer Added Detection was performed. COMPARISON: Mammogram from 08/12/2021, 09/22/2016. FINDINGS: Breast Composition: There are scattered areas of fibroglandular density. There are no dominant masses or suspicious calcifications. No other significant abnormalities are identified. There has been no significant change since the prior study. BI/SCRN MAMM (CAD)W/BRYNN BILAT IMPRESSION: Stable bilateral screening mammogram. Yearly follow-up mammogram recommended. (A) ASSESSMENT CATEGORY: BIRADS Category 1: Negative. A letter regarding these results will be sent to the patient by the facility within 30 days. Approximately 10% of breast cancers are not detected by mammography. A normal mammogram should not delay biopsy of a clinically suspicious abnormality. Electronically Signed: Davion Ramsey DO at 11:59 EDT ,
--- NOTE | 2023-01-05 13:22 | ECHOD_ITS ---
Reason For Study: ABNORMAL EKG Procedure This was a 2D Doppler, Color Flow transthoracic echocardiogram. Exam performed in department. Left Ventricle Normal LV size. Left ventricular systolic function is normal. The estimated ejection fraction is 60 %. Stage 1 diastolic dysfunction. No regional wall motion abnormalities noted. Right Ventricle Normal RV size. Normal systolic function. Atria Normal left atrium. Normal right atrium. Mitral Valve Normal mitral valve. Tricuspid Valve Normal tricuspid valve. Trivial tricuspid valve insufficiency. Aortic Valve Normal aortic valve. Pulmonic Valve Normal pulmonic valve. Great Vessels Normal aortic root. The pulmonary artery is normal size. Normal inferior vena cava. Pericardium/Pleural No pericardial effusion. MMode/2D Measurements & Calculations LVIDd: 4.0 cm IVSd: 0.89 cm Ao root diam: 2.8 cm LVIDs: 2.9 cm LVPWd: 0.94 cm RVDd: 2.5 cm FS: 27.6 % LAV(MOD-bp): 24.5 ml LVAd ap4: 22.6 cm2 LVAd ap2: 22.7 cm2 LAV(MOD-bp) Indexed: 14.3 ml/m2 LVLd ap4: 7.4 cm LVLd ap2: 7.3 cm LAV(MOD-sp2): 23.7 ml EDV(MOD-sp4): 57.3 ml EDV(MOD-sp2): 58.7 ml LAV(MOD-sp4): 23.2 ml EDV(sp4-el): 58.2 ml EDV(sp2-el): 59.8 ml LVAs ap4: 11.2 cm2 LVAs ap2: 12.0 cm2 LVLs ap4: 5.6 cm LVLs ap2: 6.6 cm ESV(MOD-sp4): 19.9 ml ESV(MOD-sp2): 18.9 ml ESV(sp4-el): 19.3 ml ESV(sp2-el): 18.6 ml EF(MOD-sp4): 65.2 % EF(MOD-sp2): 67.7 % EF(sp4-el): 66.9 % SV(MOD-sp4): 37.3 ml SV(MOD-sp2): 39.7 ml SV(sp4-el): 39.0 ml LA dimension(2D): 3.3 cm LA A4 area: 10.8 cm2 RA A4 area: 8.6 cm2 Time Measurements MV dec time: 0.21 sec Doppler Measurements & Calculations MV E max silvano: 80.0 cm/sec Lat Peak E' Silvano: 6.3 cm/sec Med Peak E' Silvano: 6.6 cm/sec MV A max silvano: 115.2 cm/sec E/E' lat: 12.6 E/E' med: 12.0 MV E/A: 0.69 MV dec slope: 387.1 cm/sec2 Ao V2 max: 141.9 cm/sec LV V1 max: 105.5 cm/sec Ao max P.1 mmHg LV V1 max P.5 mmHg Ao V2 mean: 93.6 cm/sec LV V1 mean P.4 mmHg Ao mean P.0 mmHg LV V1 mean: 71.0 cm/sec Ao V2 VTI: 30.2 cm LV V1 VTI: 22.6 cm AV (velocity ratio): 0.75 PA V2 max: 98.8 cm/sec TR max silvano: 227.3 cm/sec PA V2 mean: 67.2 cm/sec TR max P.7 mmHg ECHO/Echo Complete Interpretation Summary Normal LV size. Left ventricular systolic function is normal. The estimated ejection fraction is 60 %. Stage 1 diastolic dysfunction. Ordering Physician: Birgit Michaud Referring Physician: Birgit Michaud Performed By: Cris Caba RDCS, RVT
== END | disposition home or self-care (01) ==
PROVIDERS: PCP Nurse Practitioner Family; Referring Provider Nurse Practitioner Family; Visit Provider Nurse Practitioner Family
DX: Z12.31 Encounter for screening mammogram for malignant neoplasm of breast (principal); R94.31 Abnormal electrocardiogram [ECG] [EKG]
CPT/HCPCS: 77063; 77067; 93306

== ENCOUNTER → 2023-02-22 | Outpatient (CLI) | payer MEDICARE, OTHER, SELFPAY ==
--- NOTE | 2023-02-22 16:41 | RAD_ITS ---
INDICATION: MEZA (dyspnea on exertion) EXAMINATION/TECHNIQUE: X-RAY - XR Chest 2 Views COMPARISON: 04/24/2021 FINDINGS: LINES/DEVICES: None. LUNGS: No consolidation, edema or effusion. No pneumothorax. MEDIASTINUM AND CARDIOVASCULAR STRUCTURES: Cardiac silhouette not enlarged. Central airways and mediastinal contour are unremarkable. BONES AND SOFT TISSUES: No acute changes. Superior portion of lumbar fusion hardware minimally imaged. RAD/Chest PA and Lateral IMPRESSION: No radiographic evidence of acute cardiopulmonary disease. Electronically Signed: Sylvester Elliott MD at 0:52 EDT ,
== END | disposition home or self-care (01) ==
LOC: MTRAD 16:23
PROVIDERS: PCP Nurse Practitioner Family; Referring Provider Nurse Practitioner Family; Visit Provider Nurse Practitioner Family
DX: R06.09 Other forms of dyspnea (principal)
CPT/HCPCS: 71046

== ENCOUNTER → 2023-08-11 | Outpatient (CLI) | payer MEDICARE, OTHER, SELFPAY ==
--- OUTSIDE RECORDS SUMMARY | 2023-08-11 06:28 | XMS RPT_ITS | CCD ---
Author Name Unknown Address [address] [place] [address] Organization [facility] Care Team Providers Care Piano Refinisher Name Role Phone Ciesa Irene Unavailable Roelant, Karmen Unavailable Barbara Armstrong Unavailable Unavailable Monalisa Hughes Unavailable Snadie Cantu Unavailable Unavailable Slarb, Carrie Unavailable Unavailable Unavailable Unavailable Ciesa, Irene Unavailable Roelant, Karmen Unavailable Kade Serra Unavailable Unavailable MessengerBarbara Unavailable Unavailable Pepe, Sandie Unavailable Unavailable Slarb, Carrie Unavailable Unavailable Unavailable Unavailable Yara Dinh Unavailable Unavailable Kade Serra Unavailable Unavailable Kade Cantu Unavailable Unavailable Ellen Monalisa Unavailable Cikimmie JOSE L Irene Unavailable Roelant, Karmen Unavailable Fabrizio KEY, Yara Unavailable Unavailable Kade Cantu LPN Unavailable Unavailable Slasumeet KEY, Carrie Unavailable Unavailable Unavailable Unavailable Dr. Jacob Montes De Oca Unavailable Mai Gómez MD Unavailable NEMESIO Yuan LPN Unavailable Unavailable Manchak INDUSTRIAL ELECTRICAL ENGINEER, Hortensia Unavailable Unavailable Gravius INDUSTRIAL ELECTRICAL ENGINEER, Serenity Unavailable Unavailable Unavailable Unavailable Alisonabhilouise Enriqueta Unavailable Unavailable Unavailable Unavailable Ciesa Enriqueta Unavailable Mai Gómez MD Unavailable Unavailable Unavailable Enriqueta Mora Unavailable Unavailable Enriqueta Mora Unavailable Manju Moore MA Unavailable Unavailable Birgit Michaud CNP Unavailable Avani Leiva DO Referring Unavailable Birgit Michaud CNP Attending Unavailable Birgit Michaud CNP Consulting Unavailable Birgit Michaud CNP Unavailable Vinnie Torrez MD Unavailable Pepe Elder DO, Dennis Primary Care Provider Medications Completed/Discontinued Medications Medication Drug Class(es) Dates Sig (Normalized) Sig (Original) acetaminophen 325 mg / HYDROcodone bitartrate 5 mg oral tablet (20 sources) Opioid Agonist Start: 12-02-2015 End: 03-03-2020 take 1 tablet by mouth every six hours as needed [place] 5-325 MG Oral Tablet 1 (one) Tablet Tablet q6h prn for 0 days Quantity: 60 {Tablet} Refills: 0 Ordered: 03-Mar-2020 Yara Dinh LPN Start : 02-Dec-2015 End : 03-Mar-2020 Inactive acyclovir 800 mg oral tablet (20 sources) Herpesvirus Nucleoside Analog DNA Polymerase Inhibitor, Herpes Simplex Virus Nucleoside Analog DNA Polymerase Inhibitor, Herpes Zoster Virus Nucleoside Analog DNA Polymerase Inhibitor Start: 06-28-2021 End: 07-05-2021 take 1 tablet by mouth once daily Acyclovir 800 MG Oral Tablet 1 (one) Tablet 5x day for 7 days Quantity: 35 {Tablet} Refills: 0 Ordered: 28-Jun-2021 Enriqueta Mora Start : 28-Jun-2021 End : 05-Jul-2021 Inactive [id number] 200 actuat albuterol 0.09 mg/actuat metered dose inhaler (20 sources) beta2-Adrenergic Agonist Start: 02-22-2023 take 1 puff(s) by inhalation every four to six hours albuterol sulfate 90 mcg/actuation inhalation HFA Aerosol with Adapter 1 puff every 4 to 6 hours;shortness of breath or wheezing for 0 days Quantity: 1 {Each} Refills: 1 Ordered: 22-Feb-2023 Birgit Michaud CNP Start : 22-Feb-2023 Active Problems Active Problems Problem Classification Problem Date Documented Da te Episodic/Chronic Administrative/social admission (15 sources) Medical examinations/reports status; Translations: [Routine health maintenance] 01-01-2018 Episodic Past or Other Problems Problem Classification Problem Date Documented Da te Episodic/Chronic Biliary tract disease (2 sources) Cholecystitis; Translations: [Cholecystitis, unspecified] Onset: 04-29-2012 04-29-2012 Episodic Diabetes mellitus without complication (3 sources) Prediabetes; Translations: [Prediabetes] 01-01-2018 Results Test Name Value Interpretation Reference Range Facil ity Vital Signs Date Time Vital Sign Value Performing Clinician Facility 05-25-2023 09:23-0400 Body height 157.48 cm Yara Dinh LPN [facility] Work Phone: 05-25-2023 09:23-0400 Body mass index (BMI) [Ratio] 29.85 kg/m2 Yara Dinh LPN [facility] Work Phone: 05-25-2023 09:23-0400 Body surface area Derived from formula 1.75 m2 Yara Dinh LPN [facility] Work Phone: 05-25-2023 09:23-0400 Body temperature 97.9 [degF] Yara Dinh LPN [facility] Work Phone: 05-25-2023 09:23-0400 Body weight 74.02 kg Yara Dinh LPN [facility] Work Phone: 05-25-2023 09:23-0400 Diastolic blood pressure 84 mm[Hg] Yara Dinh LPN [facility] Work Phone: Encounters Encounter Date Encounter Type Care Provider Facility Start: 05-25-2023 End: 05-25-2023 Office outpatient visit 10 minutes Birgit Michaud CNP Work Phone: [facility] Start: 03-10-2023 Orders Only Carolina ambrocio LPN [facility] Start: 03-02-2023 Telephone encounter Ag Card Work Phone: [facility] Cardiology [place] Procedures Date Procedure Procedure Detail Performing Clinician Start: 02-22-2023 End: 02-23-2023 Chest PA and Lateral Procedure Note: See Note; NOTES: [facility] Imaging Services [address] [place] [address] Chest PA and Lateral MR#: [id number] Acct: [id number] Name: PEACE RESENDEZ Rep #: [id number] : 1955 F 67 From: Sylvester Elliott MD PCP: BRIAN Gonzalez Status: REG CLI Study: Chest PA and Lateral Date of Exam: 02/22/23 Exam# [id number] Ordering Dr: Birgit Michaud AIR SAW OPERATORKandis INDICATION: MEZA (dyspnea on exertion) EXAMINATION/TECHNIQUE: X-RAY - XR Chest 2 Views COMPARISON: 04/24/2021 FINDINGS: LINES/DEVICES: None. LUNGS: No consolidation, edema or effusion. No pneumothorax. MEDIASTINUM AND CARDIOVASCULAR STRUCTURES: Cardiac silhouette not enlarged. Central airways and mediastinal contour are unremarkable. BONES AND SOFT TISSUES: No acute changes. Superior portion of lumbar fusion hardware minimally imaged. RAD/Chest PA and Lateral IMPRESSION: No radiographic evidence of acute cardiopulmonary disease. Electronically Signed: Sylvester Elliott MD at 0:52 EDT Reading Location ID and State: [facility] / [place] Tel , Service support , CC: AIR SAW OPERATORKandis Michaud Plodding Machine Operator: Signed Birgit Michaud [facility] Work Phone: Start: 01-05-2023 End: 01-05-2023 Echo Complete Procedure Note: See Note; NOTES: [facility] Cardi[facility] [address] [place] [address] Echo Complete 01/05/23 1356 MR#: [id number] Acct: [id number] Name: PEACE RESENDEZ Rep #: [id number] : 1955 67 From: Kristopher Santana MD Attending Dr: BRIAN Gonzalez Status: REG CLI Ordering Dr: Birgit Michaud Date: 01/05/23 Location: [facility] Sex: F C Admitted: Reason For Study: ABNORMAL EKG Procedure This was a 2D Doppler, Color Flow transthoracic echocardiogram. Exam performed in department. Left Ventricle Normal LV size. Left ventricular systolic function is normal. The estimated ejection fraction is 60 %. Stage 1 diastolic dysfunction. No regional wall motion abnormalities noted. Right Ventricle Normal RV size. Normal systolic function. Atria Normal left atrium. Normal right atrium. Mitral Valve Normal mitral valve. Tricuspid Valve Normal tricuspid valve. Trivial tricuspid valve insufficiency. Aortic Valve Normal aortic valve. Pulmonic Valve Normal pulmonic valve. Great Vessels Normal aortic root. The pulmonary artery is normal size. Normal inferior vena cava. Pericardium/Pleural No pericardial effusion. MMode/2D Measurements Calculations LVIDd: 4.0 cm IVSd: 0.89 cm Ao root diam: 2.8 cm LVIDs: 2.9 cm LVPWd: 0.94 cm RVDd: 2.5 cm FS: 27.6 % LAV(MOD-bp): 24.5 ml LVAd ap4: 22.6 cm2 LVAd ap2: 22.7 cm2 LAV(MOD-bp) Indexed: 14.3 ml/m2 LVLd ap4: 7.4 cm LVLd ap2: 7.3 cm LAV(MOD-sp2): 23.7 ml EDV(MOD-sp4): 57.3 ml EDV(MOD-sp2): 58.7 ml LAV(MOD-sp4): 23.2 ml EDV(sp4-el): 58.2 ml EDV(sp2-el): 59.8 ml LVAs ap4: 11.2 cm2 LVAs ap2: 12.0 cm2 LVLs ap4: 5.6 cm LVLs ap2: 6.6 cm ESV(MOD-sp4): 19.9 ml ESV(MOD-sp2): 18.9 ml ESV(sp4-el): 19.3 ml ESV(sp2-el): 18.6 ml EF(MOD-sp4): 65.2 % EF(MOD-sp2): 67.7 % EF(sp4-el): 66.9 % SV(MOD-sp4): 37.3 ml SV(MOD-sp2): 39.7 ml SV(sp4-el): 39.0 ml LA dimension(2D): 3.3 cm LA A4 area: 10.8 cm2 RA A4 area: 8.6 cm2 Time Measurements MV dec time: 0.21 sec Doppler Measurements Calculations MV E max adam: 80.0 cm/sec Lat Peak E' Adam: 6.3 cm/sec Med Peak E' Adam: 6.6 cm/sec MV A max adam: 115.2 cm/sec E/E' lat: 12.6 E/E' med: 12.0 MV E/A: 0.69 MV dec slope: 387.1 cm/sec2 Ao V2 max: 141.9 cm/sec LV V1 max: 105.5 cm/sec Ao max P.1 mmHg LV V1 max P.5 mmHg Ao V2 mean: 93.6 cm/sec LV V1 mean P.4 mmHg Ao mean P.0 mmHg LV V1 mean: 71.0 cm/sec Ao V2 VTI: 30.2 cm LV V1 VTI: 22.6 cm AV (velocity ratio): 0.75 PA V2 max: 98.8 cm/sec TR max adam: 227.3 cm/sec PA V2 mean: 67.2 cm/sec TR max P.7 mmHg ECHO/Echo Complete Interpretation Summary Normal LV size. Left ventricular systolic function is normal. The estimated ejection fraction is 60 %. Stage 1 diastolic dysfunction. Ordering Physician: Birgit Michaud Referring Physician: Birgit Michaud Performed By: Cris Caba, MARCIA, RVT 01/05/23 161 Date Kristopher Santana MD CC: AIR SAW OPERATOR-C Birgit Michaud Date Dictated: 01/05/23 1356 Date Transcribed: 01/05/231613 Plodding Machine Operator: Signed Birgit Michaud [facility] Work Phone: Start: 01-05-2023 End: 01-06-2023 SCRN MAMM (CAD)W/BRYNN BILAT Procedure Note: See Note; NOTES: [facility] Imaging Services [address] [place] [address] SCRN MAMM (CAD)W/BRYNN BILAT MR#: [id number] Acct: [id number] Name: PEACE RESENDEZ Rep #: [id number] : 1955 F 67 From: Davion Ramsey DO PCP: BRIAN Gonzalez Status: REG CLI Study: SCRN MAMM (CAD)W/BRYNN BILAT Date of Exam: 12/13 01/03 Exam# [id number] Ordering Dr: Birgit Michaud AIR SAW OPERATORKandis MAMMOGRAPHY - BILATERAL SCREENING REASON FOR EXAM: Female, 67 years old. Routine annual screening examination. PERTINENT HISTORY: Aunt with breast cancer. TECHNIQUE: Digital bilateral breast brynn (3D mammographic acquisition) in the CC and MLO projections. 2-D mediolateral oblique (MLO) and craniocaudad (CC) views of both breasts were obtained. CAD: Full Field Digital Mammography with Computer Added Detection was performed. COMPARISON: Mammogram from 08/12/2021, 09/22/2016. FINDINGS: Breast Composition: There are scattered areas of fibroglandular density. There are no dominant masses or suspicious calcifications. No other significant abnormalities are identified. There has been no significant change since the prior study. BI/SCRN MAMM (CAD)W/BRYNN BILAT IMPRESSION: Stable bilateral screening mammogram. Yearly follow-up mammogram recommended. (A) ASSESSMENT CATEGORY: BIRADS Category 1: Negative. A letter regarding these results will be sent to the patient by the facility within 30 days. Approximately 10% of breast cancers are not detected by mammography. A normal mammogram should not delay biopsy of a clinically suspicious abnormality. Electronically Signed: Davion Ramsey DO at 11:59 EDT , CC: BRIAN Michaud Plodding Machine Operator: Signed Birgit Michaud CNP Work Phone: Start: 08-12-2021 End: 08-18-2021 Dexa Bone Density Study Comments: See Note; NOTES: [facility] Imaging Services [address] [place] [address] Dexa Bone Density Study MR#: [id number] Acct: [id number] Name: PEACE RESENDEZ Rep #: [id number] : 1955 F 66 From: Keanu ash MD PCP: BRIAN Rodrigez Status: REG CLI Study: Dexa Bone Density Study Date of Exam: 08/12/21 Exam# [id number] Ordering Dr: Enriqueta Mora NP STUDY: DUAL ENERGY X-RAY ABSORPTIOMETRY / DXA REASON FOR EXAM: Female, 66 years old. [id number]. The patient is postmenopausal. TECHNIQUE: Bone Mineral Density (BMD) measurements of lumbar spine and bilateral hips were obtained. COMPARISON: Comparison is made with prior study dated 09/22/2016. FINDINGS: Lumbar Spine (L1-L4): g/cm2 (0.771) / T-score (-1.9) / Z-score (-0.3) Findings are suggestive of osteopenia with a moderate fracture risk. Left Femur Total: g/cm2 (0.829) / T-score (-0.9) / Z-score (0.3) Left Femoral Neck: g/cm2 (0.650) / T-score (-1.8) / Z-score (-0.3) Right Femur Total: g/cm2 (0.886) / T-score (-0.5) / Z-score (0.7) Right Femoral Neck: g/cm2 (0.699) / T-score (-1.3) / Z-score (0.1) The T-Scores on the most recent prior examination were: Lumbar Spine (L1-L4): There has been worsening of bone density since the previous examination. Left Femur Total: which represents a worsening of 4.4%. Right Femur Total: which represents an improvement of 1.7%. BD/Dexa Bone Density Study IMPRESSION: The patient is considered osteopenic as outlined below according to World Sumit Organization (WHO) criteria with a moderate fracture risk. There has been worsening of bone density since the previous examination. Reference Information: The T-score is the number of standard deviations above or below the standard which is normal for young adults at their peak bone mineral density. The World Health Organization (WHO) interprets the T-scores as follows: Above -1 Normal bone density Between -1 and -2.5 Osteopenia Equal to / or below -2.5 Osteoporosis As a practical clinical guideline, osteopenia may be graded as follows: Mild -1 through -1.5 Moderate -1.6 through -2.0 Severe -2.1 through -2.4 The Z-score is the number of standard deviations above or below age-matched controls. A Z-score of less than -1.5 would be considered abnormal. References: 1. NIH Osteoporosis and Related Bone Diseases www osteo.org 2. International Society for Clinical Densitometry www iscd.org 3. National Osteoporosis Foundation www nof.org Electronically Signed: Keanu Boone MD at 9:36 EST , Service support , CC: BRIAN Mora Plodding Machine Operator: Signed Enriqueta Mora [employer] Work Phone: Start: 08-12-2021 End: 08-16-2021 SCRN MAMM (CAD)W/BRYNN BILAT Comments: See Note; NOTES: [facility] Imaging Services [address] [place] [address] SCRN MAMM (CAD)W/BRYNN BILAT MR#: [id number] Acct: [id number] Name: PEACE RESENDEZ Rep #: [id number] : 1955 F 66 From: Keanu ash MD PCP: Enriqueta Mora NP-C Status: REG CLI Study: SCRN MAMM (CAD)W/BRYNN BILAT Date of Exam: 07/16 Exam# [id number] Ordering Dr: Enriqueta Mora NP AIR SAW OPERATOR-C MAMMOGRAPHY - BILATERAL SCREENING REASON FOR EXAM: Female, 66 years old. Routine annual screening examination. PERTINENT HISTORY: Aunt with breast cancer. TECHNIQUE: Digital bilateral breast brynn (3D mammographic acquisition) in the CC and MLO projections. 2-D mediolateral oblique (MLO) and craniocaudad (CC) views of both breasts were obtained. CAD: Full Field Digital Mammography with Computer Added Detection was performed. COMPARISON: Comparison is made with prior study dated 09/22/2016 and 01/28/2013. FINDINGS: Breast Composition: There are scattered areas of fibroglandular density. There are no dominant masses or suspicious calcifications. No other significant abnormalities are identified. There has been no significant change since the prior study. BI/SCRN MAMM (CAD)W/BRYNN BILAT IMPRESSION: Stable bilateral screening mammogram. Yearly follow-up mammogram recommended. (A) ASSESSMENT CATEGORY: BIRADS Category 1: Negative. A letter regarding these results will be sent to the patient by the facility within 30 days. Approximately 10% of breast cancers are not detected by mammography. A normal mammogram should not delay biopsy of a clinically suspicious abnormality. [id number] Electronically Signed: Keanu Boone MD at 8:33 EST , Service support , CC: BRIAN Mora Plodding Machine Operator: Signed Enriqueta Mora CNP Work Phone: Start: 06-22-2021 End: 06-22-2021 Emergency Department Summary Comments: See Note; NOTES: [facility] Medical Records Department [address] [place] [address] Emergency Department Summary 06/22/21 MR#: [id number] Acct: [id number] Name: PEACE RESENDEZ Rep #: [id number] : 1955 66 From: Frankie Ni DO PCP: BRIAN Rodrigez Status:REG ER Location: ED HPI History of Present Illness Chief Complaint: Chest Pain Narrative Narrative: Patient is a 66-year-old female who states she has had constant chest/back pain since Monday. She denies any trauma prior to the pain beginning. She states the pain began around her left scapula and is sharp in nature and then over time has progressed to shoot to the front of her left chest . She denies any nausea vomiting diaphoresis or shortness of breath associated with this. She denies any previous DVT or PE but does admit to driving constantly. She states that symptoms have not resolved spontaneously and secondary to this presents for evaluation [facility] Medical History (Updated 06/22/21 @ 17:[address] 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 HTN (hypertension) Incontinence Limb weakness Migraines Home Medications hydrochlorothiazide 25 mg PO DAILY 04/04/16 [History Last Taken 06/22/21] duloxetine 60 mg capsule,delayed release 60 mg PO DAILY #30 cap 02/08/19 [History Last Taken 06/22/21] calcium carbonate [Calcium 500] 500 mg PO DAILY 06/22/21 [History Last Taken 06/22/21] cholecalciferol (vitamin D3) 125 mcg PO DAILY 06/22/21 [History Last Taken 06/22/21] cyanocobalamin (vitamin B-12) 1,000 mcg PO DAILY 06/22/21 [History Last Taken 06/22/21] hydrocodone-acetaminophen 1 tab PO Q6H PRN 5 Days #20 tab 06/22/21 [Rx Last Taken Unknown] methylphenidate HCl 20 mg PO DAILY 06/22/21 [History Last Taken 06/22/21] multivitamin 1 tab PO DAILY 06/22/21 [History Last Taken 06/22/21] Allergy/AdvReac Type Severity Reaction Status Date / Time No Known Allergies Allergy Verified 06/22/21 13:51 Family History Other Diabetes Heart disease Hypertension Surgical History Hx of cholecystectomy Social History (Updated 02/08/19 @ 11:00 by Miguel NELSON, PA) Smoking Status: Never smoker alcohol intake: current alcohol intake frequency: a few times a month Alcohol type: beer and wine ROS ROS ED Constitutional Constitutional ED: Denies chills or fever(s) ENT ENT ED: Denies sore throat Cardiovascular Cardiovascular: Reports chest pain; Denies palpitations or racing heartbeat Respiratory/Chest Respiratory/Chest: Denies cough or dyspnea Gastrointestinal Gastrointestinal: Denies abdominal pain, diarrhea, nausea or vomiting Genitourinary Genitourinary ED: Denies dysuria Musculoskeletal Musculoskeletal: Reports back pain; Denies myalgias Integumentary Denies rash Neurologic Neurologic: Denies headache(s) Hematologic/Lymphatic Hematologic/Lymphatic: Denies easy bleeding or easy bruising EXAM Physical Exam Const Vital Signs: 06/22/21 13:49 06/22/21 14:13 06/22/21 15:35 Temperature 98.3 F Temperature Source Temporal Pulse Rate 136 H 95 Respiratory Rate 16 19 H Respiratory Effort Normal Non-Labored Blood Pressure 149/102 H 129/71 H Blood Pressure Mean 117 90 Pulse Ox 98 99 Oxygen Delivery Method Room Air Room Air Room Air 06/22/21 16:06 Temperature Temperature Source Pulse Rate 93 Respiratory Rate 16 Respiratory Effort Blood Pressure 141/84 H Blood Pressure Mean 103 Pulse Ox 97 Oxygen Delivery Method Room Air Positive well nourished and well developed General Appearance ED: well developed HEENT Reports moist mucous membranes Eyes PERRL and EOMs intact bilaterally Neck supple Chest Wall palpation of chest normal Resp normal respiratory effort and clear to auscultation bilaterally Cardio regular rate and regular rhythm Rate: other Other Details: Radial pulses are +2-4 bilaterally are equal and symmetric GI normal to inspection, nondistended, normoactive bowel sounds, non-tender, non-distended and no masses GI Narrative: No voluntary guarding or rigidity no pulsatile mass Auscultation: normoactive bowel sounds Palpation: soft Back/Spine no CVA tenderness Extremity Extremity Narrative: Trace asymmetric nonpitting edema to the left leg compared to right with positive Homans' sign on left Neuro oriented x3 and CN's II-XII intact bilaterally Sensorium / Orientation: alert Motor Exam: strength 5/5 throughout Psych mental status grossly normal Skin no rashes or lesions noted MDM MDM MDM Narrative Medical decision making narrative: Patient presented to the ER tachycardic but otherwise in no acute distress with stable vitals. Her chest pain has been constant for 3 days and was not classic cardiac in nature. However she does drive quite often and therefore I elected to perform a CTA with concern for PE versus is aneurysm/dissection. The patient's troponin is normal going against heart damage with 3 days of constant pain and her CTA reveals no acute findings. Therefore this time I do not feel this is cardiac in nature and it is most likely related to ruptured disks in her neck. With negative work-up and improvement of pain after morphine and Depo-Medrol patient can be discharged and follow-up with family doctor and her business control specialist for further evaluation Lab Data Attestation: I reviewed the patient's lab results. Labs: Laboratory Results - last 24 hr 06/22/21 06/22/21 06/22/21 14:10 14:10 14:10 WBC 6.7 RBC 4.88 Hgb 13.7 Hct 41.4 MCV 84.8 MCH 28.1 MCHC 33.1 RDW Std Deviation 40.8 RDW Coeff of Kevin 13.1 Plt Count 329 MPV 9.9 Immature Gran % (Auto) 0.100 Neut % (Auto) 62.2 Lymph % (Auto) 28.2 [place] % (Auto) 7.8 Eos % (Auto) 1.0 Baso % (Auto) 0.7 Absolute Neuts (auto) 4.1 Absolute Lymphs (auto) 1.88 Nucleated RBC % 0 PT 12.7 INR 1.0 APTT 28.4 Sodium 137 Potassium 3.2 L Chloride 100 Carbon Dioxide 29.0 Anion Gap 8 BUN 12 Creatinine 1.02 Estim Creat Clear Calc 44.07 Est GFR (MDRD) Af Amer 70 Est GFR (MDRD) Non-Af 58 L BUN/Creatinine Ratio 11.8 Glucose 131 H Calcium 9.5 Magnesium 2.1 Troponin I High Sens 8 TSH 0.59 Radiography Diagnostic Testing: Clinical Impression(s) from Imaging Studies Chest X-Ray 06/22/21 13:52 IMPRESSION: No acute abnormality is seen. Electronically Signed: Keanu Boone MD at 15:46 EST , Service support , Chest/Abdomen/Pelvis CTA 06/22/21 14:17 IMPRESSION: No acute abnormality is seen. Electronically Signed: Keanu Boone MD at 15:43 EST , Service support , Discharge Plan Triage Chief Complaint: Chest Pain ED Provider: Frankie Ni Dx/Rx/DC Orders Clinical Impression: Nonspecific chest pain, Sinus tachycardia Instructions: ED Chest Pain, Noncardiac Prescriptions: New hydrocodone-acetaminophen 5-325 mg tablet 1 tab PO Q6H PRN (Reason: pain) 5 Days Qty: 20 RF: 0 No Action duloxetine 60 mg capsule,delayed release(DR/EC) 60 mg PO DAILY Qty: 30 RF: 0 hydrochlorothiazide 25 MG tablet 25 mg PO DAILY RF: 0 multivitamin Tablet 1 tab PO DAILY RF: 0 methylphenidate HCl 20 mg tablet 20 mg PO DAILY RF: 0 cyanocobalamin (vitamin B-12) 1,000 mcg Tablet 1,000 mcg PO DAILY RF: 0 calcium carbonate [Calcium 500] 500 mg calcium (1,250 mg) Tablet 500 mg PO DAILY RF: 0 cholecalciferol (vitamin D3) 125 mcg (5,000 unit) Capsule 125 mcg PO DAILY RF: 0 Primary Care Provider: Enriqueta Mora NP Referrals: Enriqueta Mora NP, AIR SAW OPERATOR-C [Primary Care Provider] - Disposition Disposition: Home, Self Care What to do if you have Problems For any increased pain, shortness of breath, bleeding, nausea or vomiting, chest pain, or any unexpected problems, contact your Primary Care Provider. Call [facility] ([phone]) or report to the closest Emergency Room. Call 911 if necessary. 06/22/21 1747 <Electronically signed by Frankie Ni DO> Cosigner Signature (if applicable): CC: BRIAN Mora Signed Enriqueta Mora W[employer] SPIR[employer] BINDER Work Phone: Start: 06-22-2021 End: 06-22-2021 CTA Chst, Abd, Pel W and/or WO Comments: See Note; NOTES: [facility] Imaging Services [address] [place] [address] CTA Chst, Abd, Pel W and/or WO MR#: [id number] Acct: [id number] Name: PEACE RESENDEZ Rep #: [id number] : 1955 F 66 From: Keanu ash MD PCP: BRIAN Rodrigez Status: REG ER Study: CTA Chst, Abd, Pel W and/or WO Date of Exam: 08/22/20 Exam# [id number] Ordering Dr: Frankie Ni DO STUDY: CTA CHEST AND CTA ABDOMEN/PELVIS WITH CONTRAST REASON FOR EXAM: Female, 66 years old. Chest pain. Left shoulder pain. RADIATION DOSAGE (If Supplied By Facility): CTDIvol = ( 13.12 ) mGy, DLP = ( 907.34 ) mGycm TECHNIQUE: The examination was performed with the intravenous administration of IV 100mL Isovue-370. Post-processing of the angiographic images was performed, with multiplanar reformation and 3D reconstruction. Individualized dose optimization techniques were used for this CT. COMPARISON: No relevant priors. FINDINGS: CTA Chest Normal enhancement of the main pulmonary artery and right and left pulmonary arteries. Normal enhancement of the bilateral peripheral pulmonary arteries. There is no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 Rodrigez Status: REG ER Study: Chest 1 View (Portable) Date of Exam: 04/16/19 Exam# [id number] Ordering Dr: Sofia Brown MD HISTORY: Chest pain 1 week from fall XR Chest 1 View TECHNIQUE: Single frontal view of chest. # of images incl. paperwork: 1 COMPARISON: None. FINDINGS: LINES: None. CARDIOVASCULAR STRUCTURES: Normal cardiomediastinal silhouette. Pulmonary vasculature appears normal. LUNGS: The lungs are clear. PLEURA: No pleural effusions or pneumothorax. BONES: No acute osseous abnormality of the thorax. RAD/Chest 1 View (Portable) IMPRESSION: 1. No acute cardiopulmonary disease. at 2310 Reported and signed by: Bhaskar Balderas MD Electronically Signed: Bhaskar Balderas MD at 23:09 EDT Tel , Service support , CC: BRIAN Mora; Sofia Brown MD Plodding Machine Operator: Signed Enriqueta Mora Start: 11-23-2018 Mammography Ag Card Work Phone: Start: 08-21-2017 End: 08-21-2017 Urgent Care Visit Report Comments: See Note; NOTES: [facility] [address] [place] [address] OFFICE VISIT Date of Service: 08/21/17 MR#: [id number] Acct: [id number] Name: PEACE RESENDEZ Rep #: [id number] : 1955 Provider: Tucker NELSON Age/Sex: 62/F Location: [facility] Status: Signed Intake Vital Signs08/21/17 Height 5 ft 2 in Intake Visit Reasons: COUGH , FEVER, CHEST CONGESTION Is patient in pain?: No Allergies No Known Allergies Allergy (Verified 08/21/17 10:14) Medications Duloxetine Hcl [Cymbalta] 30 mg PO DAILY 03/06/14 [History Confirmed 08/21/17] Multivit with Calcium,Iron,Min [Multiple Vitamins For Women] 1 ea PO DAILY 03/06/14 [History Confirmed 08/21/17] Hydrochlorothiazide [Hctz] 25 mg PO DAILY 04/04/16 [History Confirmed 08/21/17] amoxicillin 500 mg capsule 1,000 mg PO BID 10 Days #40 cap 08/21/17 [Rx Confirmed 08/21/17] calcium carbonate 500 mg calcium (1,250 mg) tablet 500 mg PO BID tab 08/21/17 [History Confirmed 08/21/17] PFSH Medical History Sinusitis (Acute) Back pain (Acute) DDD (degenerative disc disease), cervical (Acute) Difficulty balancing (Acute) Fatigue (Acute) Guillain Torrez syndrome (Acute) Incontinence (Acute) Limb weakness (Acute) Migraines (Acute) child (Acute) HTN (hypertension) (Chronic) Surgical History Hx of cholecystectomy (Acute) Family History Other Diabetes Heart disease Hypertension Social History Smoking Status: Former smoker alcohol intake: current alcohol intake frequency: a few times a month Alcohol type: beer, wine HPI COUGH , FEVER, CHEST CONGESTION: Chief Complaint: sinus pressure, cough, sore throat Details: PEACE RESENDEZ, is a 62 F who presents to the office today for initial evaluation sinus pressure, cough, sore throat 10 days. Patient notes over the last several days she has been spitting up exudative discharge. She notes no fever, sweats, or rash; she also notes new onset chills over the last 3-4 days. She is a non-smoker. She notes no family members with similar signs or symptoms. She notes no other complaints at this time. She notes no alleviating or aggravating factors. ROS Const Constitutional: Positive for chills; no fever(s), night sweats, body ache, abnormal sleep pattern or excessive sweating Eyes Eyes: No change in vision ENT ENT: Positive for post nasal drip, sinus pressure and sore throat; no abnormal hearing, ear pain, ear discharge, ear pressure or hearing loss Resp Respiratory: Positive for cough Cough: Yes non-productive; no chest congestion Cardio Cardiology: No excessive sweating, chest pain at rest, chest pain with exertion, shortness of breath, dyspnea on exertion, irregular heart rhythm, generalized swelling or leg pain with exertion Gastro GI: No abdominal pain, change in stool character or change in bowel habits Musc Musculoskeletal: No joint pain, back pain or limited range of motion Skin Skin: No change in hair or sores Neuro Neurology: No abnormal speech, abnormal movements or abnormal hearing Psych Psychiatric: No abnormal sleep pattern Endo Endocrine: No change in body appearance, cold intolerance, heat intolerance or excessive sweating Aller/Imm Allergy/Immunologic: No food intolerance Connor/Lymp Hematologic/Lymphatic: No easy bruising Exam Const General: cooperative, healthy appearing, no acute distress Nutritional Appearance: average body habitus Orientation: alert, awake, oriented x3 [facility] Head: normal to inspection Ears: hearing grossly normal bilaterally, external ears normal, TM's normal bilaterally, EAC's normal Nose: external nose normal, nares normal, septum normal, no nasal discharge Face and sinus: normal facial exam, face symmetric, sinus tenderness maxillary Mouth: oral mucosae normal, lip normal, oropharynx normal, tongue normal Teeth and gingiva: dentition normal, gingiva normal Throat: posterior oropharynx normal, tonsils normal, postnasal drainage Eyes General: appearance normal, both eyes and all related structures Neck Neck: normal visual inspection, full ROM, no lymphadenopathy, no meningeal signs, supple Neck mass: No Thyroid: thyroid normal Lymphatic: no lymphadenopathy noted Chest Chest palpation AND inspection: normal inspection of the chest Resp Effort AND Inspection: normal respiratory effort, able to speak in complete sentences, cough Quality of cough: dry Auscultation: Bilateral: Clear to Auscultation Cardio Palpation: normal PMI Rate: regular rate Rhythm: regular rhythm Heart Sounds: S1 normal, S2 normal, no gallops, no murmurs, no rubs Pulses: radial pulses present GI Inspection: normal to inspection Palpation: soft, no hepatosplenomegaly Skin General: no rashes or lesions noted Neuro General: alert, awake, oriented x3, gait normal Cognition: normal cognition Speech: speech normal Gait: normal gait Motor: muscle tone normal throughout Sensory Exam: no sensory deficits noted Extrem General: normal to inspection Psych Appearance: grossly normal Mental Status: mental status grossly normal Mood: congruent mood Affect: normal affect Speech and Movement: speech and movement normal Attitude: cooperative Thought Process: normal Thought Content: normal Judgment: judgment good Assessment AND Plan Problems 1. Sinusitis J32.9 Plan Amoxicillin as prescribed today. Clear fluids, rest, Advil/ Tylenol, and warm facial compresses as instructed today. F/u w/ pcp in 3-5 days if no improvement, sooner should symptoms worsen or other concerns develop. Pt states acknowledging understanding all the above. Medications New: Coding Level of Care Code Off vis,new,level 3 Diagnoses Sinusitis J32.9 08/21/17 1110 <Electronically signed by Tucker NELSON> Date Tucker NELSON Cosigner Signature: Date (if applicable) CC: Enriqueta Mora Start: 09-22-2016 End: 09-22-2016 Dexa Bone Density Study () Comments: See Note; NOTES: [facility] Imaging Services [address] [place] [address] Verdana 4d Dexa Bone Density Study () MR#: [id number] Acct: [id number] Name: PEACE RESENDEZ Rep #: [id number] : 1955 F 61 From: Keanu Boone MD PCP: Eloy Michael Status: [facility] Study: Dexa Bone Density Study () Date of Exam: 09/22/16 Exam# [id number] Ordering Dr: Eloy Michael STUDY: DUAL ENERGY X-RAY ABSORPTIOMETRY / DXA REASON FOR EXAM: Female, 61 years old. The patient is postmenopausal. Loss of height. TECHNIQUE: Bone Mineral Density (BMD) measurements of lumbar spine and bilateral hips were obtained. COMPARISON: Comparison is made with prior study dated October 27, 2010. FINDINGS: Lumbar Spine (L1-L4): g/cm2 (1.057) / T-score (-1.0) / Z-score (0.1) Findings are suggestive of osteopenia with a low fracture risk. Left Femur Total: g/cm2 (0.931) / T-score (-0.6) / Z-score (0.3) Left Femoral Neck: g/cm2 (0.815) / T-score (-1.6) / Z-score (-0.4) Right Femur Total: g/cm2 (0.935) / T-score (-0.6) / Z-score (0.3) Right Femoral Neck: g/cm2 (0.855) / T-score (-1.3) / Z-score (-0.1) The T-Scores on the most recent prior examination were: Lumbar Spine (L1-L4): There has been worsening of bone density since the previous examination. Left Femur Total: which represents a worsening of 0.7%. Right Femur Total: which represents an improvement of 0.6%. HPBD/Dexa Bone Density Study (HP) IMPRESSION: The patient is considered osteopenic as outlined below according to World Sumit Organization (WHO) criteria with a moderate fracture risk. There has been worsening of bone density since the previous examination. Reference Information: The T-score is the number of standard deviations above or below the standard which is normal for young adults at their peak bone mineral density. The World Health Organization (WHO) interprets the T-scores as follows: Above -1 Normal bone density Between -1 and -2.5 Osteopenia Equal to / or below -2.5 Osteoporosis As a practical clinical guideline, osteopenia may be graded as follows: Mild -1 through -1.5 Moderate -1.6 through -2.0 Severe -2.1 through -2.4 The Z-score is the number of standard deviations above or below age-matched controls. A Z-score of less than -1.5 would be considered abnormal. References: 1. NIH Osteoporosis and Related Bone Diseases http://www.osteo.org 2. International Society for Clinical Densitometry http://www.iscd.org 3. National Osteoporosis Foundation http://www.nof.org Electronically Signed: Keanu Boone MD at 14:37 EST Tel [phone], Service support [phone], CC: Eloy Michael Plodding Machine Operator: Signed Eloy Michael Work Phone: Start: 09-22-2016 End: 09-23-2016 SCREENING MAMM (CAD), BILAT Comments: See Note; NOTES: [facility] Imaging Services [address] [place] [address] Verdana 4d SCREENING MAMM (CAD), BILAT MR#: [id number] Acct: [id number] Name: PEACE RESENDEZ Rep #: [id number] : 1955 F 61 From: Keanu Boone MD PCP: Eloy Michael Status: REG CLI Study: SCREENING MAMM (CAD), BILAT Date of Exam: 09/22/16 Exam# [id number] Ordering Dr: Eloy Michael MAMMOGRAPHY - BILATERAL SCREENING REASON FOR EXAM: Female, 61 years old. Routine annual screening examination. PERTINENT HISTORY: Aunt with breast cancer. TECHNIQUE: Digital bilateral breast brynn (3D mammographic acquisition) in the CC and MLO projections. 2-D mediolateral oblique (MLO) and craniocaudad (CC) views of both breasts were obtained. CAD: Full Field Digital Mammography with Computer Added Detection was performed. COMPARISON: Comparison is made with prior outside examination dated October 29, 2015 and January 28, 2013. FINDINGS: Breast Composition: The breasts are heterogeneously dense, which may obscure small masses. There are no dominant masses or suspicious calcifications. No other significant abnormalities are identified. There has been no significant change since the prior study. HPBI/SCREENING MAMM (CAD), BILAT IMPRESSION: Stable bilateral screening mammogram. Yearly follow-up mammogram recommended. (A) ASSESSMENT CATEGORY: BIRADS Category 1: Negative. A letter regarding these results will be sent to the patient by the facility within 30 days. Approximately 10% of breast cancers are not detected by mammography. A normal mammogram should not delay biopsy of a clinically suspicious abnormality. [id number] Electronically Signed: Keanu Boone MD at 12:13 EST Tel [phone], Service support [phone], CC: Eloy Michael Plodding Machine Operator: Signed Eloy Michael Work Phone: Start: 06-20-2016 End: 06-20-2016 Operative Report Comments: See Note; NOTES: [facility] Medical Records Department [address] [place] [id number] Operative Report MR#: [id number] Acct: [id number] Name: PEACE RESENDEZ Rep #: [id number] : 1955 61 From: Vinny Chambers MD PCP: Eloy Michael Status: [facility] DATE OF SERVICE: 05/30/2016 ATTENDING PHYSICIAN: Vinny Chambers M.D. PROCEDURE: Left-sided cervical facet steroid injection C4-C5, C6-C7. PREOPERATIVE DIAGNOSES: Cervical spondylosis, cervical degenerative disk disease, cervical facet arthropathy. POSTOPERATIVE DIAGNOSES: Cervical spondylosis, cervical degenerative disk disease, cervical facet arthropathy. ANESTHESIA: MAC. COMPLICATIONS: None. BLOOD LOSS: Minimal. PROCEDURE IN DETAIL: History and physical today was reviewed. Risks and benefits of procedure explained. The patient understood, agreed to procedure and informed consent was obtained. IV inserted per routine protocol. The patient was taken to the operating room, placed in the prone position with a pillow positioned underneath the chest. The neck area was prepped and draped in a sterile fashion using iodine x3. Under fluoroscopy guidance, on AP view, the C4 through C7 vertebral bodies were visualized at approximately 5-degree angle, starting on the left C4, ending on the left C7, passing through C5-C6 using a 25-gauge 3-1/2 inch spinal needle, the needle was advanced via the skin, the tip of the needle was maneuvered and directed towards the apophyseal junction of each corresponding vertebra. Once the tip of the needle was at the vicinity of the medial branch and in contact with the bone, the needle pulled approximately 2 mm of the bone. After negative aspiration of blood with CSF and confirmation of AP as well as oblique view, a total of 4 mL of preservative-free 0.25% Marcaine with 80 mg of Depo-Medrol was injected in divided doses between those 4 levels. The patient experienced no signs or symptoms of intrathecal, intravascular injection. The patient experienced no paraesthesia. The procedure was completed without any apparent difficulty, any complication. The patient appeared to have tolerated it well. ASSESSMENT: This is a 61-year-old female with cervical spondylosis, cervical degenerative disk disease, cervical facet arthropathy status post left-sided cervical facet steroid injection C4 through C7. PLAN: The patient will continue her current medications. The patient will follow in approximately 2 weeks for possible repeat of the procedure if indicated. Vinny Chambers MD T: NTS JOB: [id number] 06/20/16 1559 <Electronically signed by Vinny Chambers MD> Date Vinny Chambers MD Cosigner Signature (If Indicated): Date CC: Vinny Michael Date Dictated: 05/30/16803 Date Transcribed: 05/30/16803 Plodding Machine Operator: Signed Enriqueta Rosaskimmie Start: 05-30-2016 End: 05-30-2016 Cerv Spine 4 or 5 Views Comments: See Note; NOTES: [facility] Imaging Services [address] [place] [address] Verdana 4d Cerv Spine 4 or 5 Views MR#: [id number] Acct: [id number] Name: PEACE RESENDEZ Rep #: [id number] : 1955 F 61 From: Keanu Boone MD PCP: Eloy Michael Status: [facility] Study: Cerv Spine 4 or 5 Views Date of Exam: 05/30/16 Exam# [id number] Ordering Dr: Vinny Chambers MD STUDY: X-RAY - CERVICAL SPINE REASON FOR EXAM: Female, 61 years old. Chronic neck pain. TECHNIQUE: 4 cone-down intraoperative view(s) of the cervical spine were obtained. COMPARISON: None FINDINGS: The patient is status post left C4-C5, C5-6 and C6-C7 facet block. RAD/Cerv Spine 4 or 5 Views IMPRESSION: Fluoroscopic imaging provided for facet block. Electronically Signed: Keanu Boone MD at 9:59 EDT Tel [phone], Service support [phone], CC: Vinny Chambers; Eloy Michael Plodding Machine Operator: Signed Enriqueta Mora Start: 04-19-2016 End: 04-19-2016 Operative Report Comments: See Note; NOTES: [facility] Medical Records Department [address] [place] [address] Operative Report MR#: [id number] Acct: [id number] Name: PEACE RESENDEZ Rep #: [id number] : 1955 61 From: Vinny Chambers MD PCP: Eloy Michael Status: [facility] DATE OF SERVICE: 04/07/2016 DATE OF SERVICE: April 07, 2016. ATTENDING PHYSICIAN: Vinny Chambers M.D. PROCEDURE: Right-sided cervical facet steroid injection, C4, C5, C6 and C7. PREOPERATIVE DIAGNOSES: Cervical spondylosis, cervical degenerative disk disease, cervical facet arthropathy. POSTOPERATIVE DIAGNOSES: Cervical spondylosis, cervical degenerative disc disease, cervical facet arthropathy. ANESTHESIA: MAC. COMPLICATIONS: None. BLOOD LOSS: Minimal. PROCEDURE IN DETAIL: History and physical today was reviewed. Risks and benefits of procedure explained. The patient understood, agreed to our procedure and informed consent was obtained. IV inserted per routine protocol. The patient was taken to the operating room, placed in the prone position with a pillow positioned underneath the chest. The neck area was prepped and draped in a sterile fashion using iodine x3. Under fluoroscopy guidance, on AP view, the C4 through C7 vertebral bodies were visualized. At approximately 5 degree angle starting on the right C4, ending on the right C7, passing through the C5-C6, using a 25-gauge 2-1/2 inch spinal needle, the needle was advanced via the skin. The tip of the needle was maneuvered and directed towards the apophyseal junction of each corresponding vertebra. Once the tip of the needle was at the vicinity of the medial branch and in contact with the bone, the needle pulled approximately 2 mm up the bone. After negative aspiration of blood with CSF and confirmation on AP as well as an oblique view, a total of 4 mL of preservative-free 0.25% Marcaine with 80 mg of Depo-Medrol was injected in divided doses between those 4 levels. The patient experienced no signs or symptoms of intrathecal, intravascular injection. The patient experienced no paraesthesia. The procedure was completed without any apparent difficulty, any complication. The patient appeared to tolerate well. ASSESSMENT AND PLAN: This is a 61-year-old female with cervical spondylosis, cervical degenerative disk disease, cervical facet arthropathy status post right-sided cervical facet steroid injection C4 through C7. The patient would continue current medications. The patient will follow up in approximately 2 weeks for possible repeat of the procedure if indicated. Vinny Chambers MD T: NTS JOB: [id number] 04/19/16 1644 <Electronically signed by Vinny Chambers MD> Date Vinny Chambers MD Cosigner Signature (If Indicated): Date CC: Vinny Michael Date Dictated: 04/07/161613 Date Transcribed: 04/07/161613 Plodding Machine Operator: Signed Enriqueta Mora Start: 04-07-2016 End: 04-08-2016 Cerv Spine 2 or 3 Views Comments: See Note; NOTES: [facility] Imaging Services [address] [place] [address] Natashadatorres 4d Cerv Spine 2 or 3 Views MR#: [id number] Acct: [id number] Name: PEACE RESENDEZ Rep #: [id number] : 1955 F 61 From: Keanu Boone MD PCP: Eloy Michael Status: [facility] Study: Cerv Spine 2 or 3 Views Date of Exam: 04/07/16 Exam# [id number] Ordering Dr: Vinny Chambers MD STUDY: X-RAY - CERVICAL SPINE REASON FOR EXAM: Female, 61 years old. Fluoroscopic service was provided for right 4 through C7 facet joint block. TECHNIQUE: 6 view(s) of the cervical spine were obtained. 15.3 seconds of fluoroscopy was utilized. COMPARISON: None FINDINGS: Spinal needles are seen at the level of the right C4-C7 facet joints . RAD/Cerv Spine 2 or 3 Views IMPRESSION: Imaging provided for right-sided facet block. Electronically Signed: Keanu Boone MD at 10:17 EDT Tel [phone], Service support [phone], CC: Vinny Chambers; Eloy Michael Plodding Machine Operator: Signed Enriqueta Mora Start: 12-02-2015 End: 12-02-2015 Ecg routine ecg w/least 12 lds w/i&r [MEASUREMENTS ANALYSIS] Date of Test: 12/02/2015 09:50:48; Heart Rate: 65; DC Interval: 148; QRS: 84; QT Interval: 388; Corrected QT Interval (QTc): 396; P [place]: 29; QRS [place]: -8; T [place]: -1; Blood Pressure: 128/74 [ECG DIAGNOSTIC STATEMENTS] Date of Test: 12/02/2015 09:50:48; Summary: Sinus Rhythm Voltage criteria for LVH (R(I)+S(III) exceeds 2.50 mV) -Voltage criteria w/o ST/T abnormality may be normal. -Nonspecific ST depression -Nondiagnostic. ABNORMAL Eloy Michael Work Phone: Bunion Surgery, Bila t - CTS Surgery Barbara Armstrong Bunion Surgery, Bila t - CTS Surgery Kade Serra Bunion Surgery, Bila t - CTS Surgery Yara Fabrizio Bunion Surgery, Bila t - CTS Surgery Kade Pepe CIGAR INSPECTOR Bunion Surgery, Bila t - CTS Surgery Kade Pepe CIGAR INSPECTOR Bunion Surgery, Bila t - CTS Surgery Yara Fabrizio CIGAR INSPECTOR Bunion Surgery, Bila t - CTS Surgery Manju Moore MA Bunion Surgery, Bila t - CTS Surgery Carrie Carmen CIGAR INSPECTOR Bunion Surgery, Bila t - CTS Surgery Birgit Jaswant DOMINGO Work Phone: Bunion Surgery, Bila t - CTS Surgery Yara Fabrizio CIGAR INSPECTOR Colonoscopy Barbara Armstrong Plan of Treatment Date Care Activity Detail Author Start: 05-25-2023 Procedure Education Eprescribed prescriptions (G8553) [facility]; [facility] Work Phone: Start: 04-14-2023 Influenza vaccination INFLUENZA (#1) [facility] Start: 02-22-2023 Procedure Education Eprescribed prescriptions (G8553) [facility]; [facility] Work Phone: Start: 02-20-2023 Procedure Education Eprescribed prescriptions (G8553) [facility]; [facility] Work Phone: Start: 12-14-2022 25 hydroxy includes fractions if performed CALCIFEDIOL (42765) [facility]; [facility] Work Phone: Start: 12-14-2022 Assay of troponin quantitative Troponin I (40154) [facility]; [facility] Work Phone: Start: 12-14-2022 Blood count complete auto&auto difrntl wbc CBC, PLATELETS & AUT DIFF (61582) [facility]; [facility] Work Phone: Start: 12-14-2022 Comprehensive metabolic panel METABOLIC PANEL, COMPREHENSIVE (69657) [facility]; [facility] Work Phone: Start: 12-14-2022 Creatinine other source MICROALB;CREAT RATION, RAND UR (04155) [facility]; [facility] Work Phone: Start: 12-14-2022 Cyanocobalamin vitamin b-12 VITAMIN B12 AND FOLATES (24829) [facility]; [facility] Work Phone: Start: 12-14-2022 Hemoglobin glycosylated a1c HGB A1C (37976) [facility]; [facility] Work Phone: Start: 12-14-2022 Procedure Education Eprescribed prescriptions (G8553) [facility]; [facility] Work Phone: Start: 12-14-2022 Provider Instructions for Treatment [facility]; [facility] Work Phone: Start: 12-14-2022 Urinls dip stick/tablet reagnt non-auto micrscpy URINALYSIS W MICROSCOPY (33396) [facility]; [facility] Work Phone: Start: 11-24-2022 Procedure Education Eprescribed prescriptions (G8553) [facility]; [facility] Work Phone: Start: 08-14-2022 ADVANCE DIRECTIVE DISCUSSION ADVANCE DIRECTIVE DISCUSSION [facility] Start: 08-14-2022 DEPRESSION ASSESSMENT DEPRESSION ASSESSMENT [facility] Start: 2022 BONE DENSITY BONE DENSITY [facility] Start: 2022 PNEUMOCOCCAL: 65+ (1 - PCV) PNEUMOCOCCAL: 65+ (1 - PCV) [facility] Start: 02-08-2022 Procedure Education Eprescribed prescriptions (G8553) [facility] [facility]; [facility] Work Phone: Start: 08-26-2021 Procedure Education Eprescribed prescriptions (G8553) [facility] Work Phone: Start: 06-28-2021 Patient Education Shingles (Herpes Zoster) *: rash [facility]; [facility] Work Phone: Start: 06-28-2021 Procedure Education Eprescribed prescriptions (G8553) [facility]; [facility] Work Phone: Start: 06-28-2021 Provider Instructions for Treatment Follow up if no improvement or if symptoms worsen [facility]; [facility] Work Phone: Start: 03-16-2021 Procedure Education Eprescribed prescriptions (G8553) [facility] Work Phone: Start: 03-16-2021 Provider Instructions for Treatment Follow up in 1 year or as needed [facility]; [facility] Work Phone: Start: 03-01-2021 Procedure Education Eprescribed prescriptions (G8553) [facility]; [facility] Work Phone: Start: 03-01-2021 Provider Instructions for Treatment Follow up in 1 week [facility]; [facility] Work Phone: Start: 12-16-2020 COVID-19 VACCINE (2 - Booster for Kandi series) COVID-19 VACCINE (2 - Booster for Kandi series) [facility] Start: 03-03-2020 Procedure Education Eprescribed prescriptions (G8553) [facility] Work Phone: Start: 03-03-2020 Provider Instructions for Treatment Follow up if no improvement or if symptoms worsen [facility] Work Phone: Start: 11-24-2019 Mammography MAMMOGRAM [facility] Start: 10-15-2019 Procedure Education Eprescribed prescriptions (G8553) [facility] Work Phone: Start: 10-15-2019 Provider Instructions for Treatment Follow up in 6 months [facility] Work Phone: Start: 09-18-2019 LIPID SCREEN LIPID SCREEN [facility] Start: 04-17-2019 Procedure Education Eprescribed prescriptions (G8553) [facility] Work Phone: Start: 04-17-2019 Provider Instructions for Treatment Follow up in 6 months [facility] Work Phone: Start: 04-17-2019 25 hydroxy includes fractions if performed CALCIFEDIOL (79891) [facility] Work Phone: Start: 04-17-2019 Cobalamin (Vitamin B12) [Mass/Vol] VITAMIN B12 AND FOLATES (68333) [facility] Work Phone: Start: 04-17-2019 Cyanocobalamin vitamin b-12 VITAMIN B12 AND FOLATES (23745) [facility]; [facility] Work Phone: Start: 04-17-2019 Lipid panel LIPID PANEL (73660) [facility] Work Phone: Start: 04-17-2019 HbA1c (Bld) [Mass fraction] HgA1C , Office (01155) [facility] Work Phone: Start: 04-17-2019 Hemoglobin glycosylated a1c HgA1C , Office (79954) [facility]; [facility] Work Phone: Start: 11-12-2017 Comprehensive metabolic panel Metabolic Panel, Comprehensive (11363) [facility] Work Phone: Start: 11-12-2017 Lipid panel LIPID PANEL (34444) [facility] Work Phone: Start: 11-12-2017 Cobalamin (Vitamin B12) mass conc VITAMIN B12 AND FOLATES (20789) [facility] Work Phone: Start: 11-12-2017 Cyanocobalamin vitamin b-12 VITAMIN B12 AND FOLATES (03555) [facility]; [facility] Work Phone: Start: 09-22-2017 Procedure Education Eprescribed prescriptions (G8553) [facility] Work Phone: Start: 09-22-2017 Provider Instructions for Treatment [facility] Work Phone: Start: 09-18-2017 DIABETES SCREEN DIABETES SCREEN [facility] Start: 05-31-2017 Procedure Education Eprescribed prescriptions (G8553) [facility] Work Phone: Start: 05-31-2017 Provider Instructions for Treatment Follow up in 6 months [facility] Work Phone: Start: 05-31-2017 Lipid panel Lipid Panel (73321) [facility] Work Phone: Start: 07-27-2016 Procedure Education Eprescribed prescriptions (G8553) [facility] Work Phone: Start: 07-27-2016 Urine albumin quantitative MICROALBUMIN: CREATININE RATIO (20220) AND (17689) [facility] Work Phone: Start: 07-27-2016 Cobalamin (Vitamin B12) mass conc VITAMIN B12 AND FOLATES (18563) [facility] Work Phone: Start: 07-27-2016 Cyanocobalamin vitamin b-12 VITAMIN B12 AND FOLATES (47294) [facility]; [facility] Work Phone: Start: 07-27-2016 25 hydroxy includes fractions if performed CALCIFEDIOL (91049) [facility] Work Phone: Start: 07-27-2016 Assay of thyroid stimulating hormone tsh TSH (THYROID STIMULATING HORMONE) (20337) [facility]; [facility] Work Phone: Start: 07-27-2016 Thyrotropin Qn TSH (THYROID STIMULATING HORMONE) (15002) [facility] Work Phone: Start: 07-27-2016 Lipid panel LIPID PANEL (59663) [facility] Work Phone: Start: 07-27-2016 Comprehensive metabolic panel METABOLIC PANEL, COMPREHENSIVE (26518) [facility] Work Phone: Start: 07-27-2016 Blood count complete auto&auto difrntl wbc CBC, PLATELETS & AUT DIFF (75813) [facility] Work Phone: Start: 04-27-2016 Cobalamin (Vitamin B12) mass conc VITAMIN B12 AND FOLATES (43848) [facility] Work Phone: Start: 04-27-2016 Cyanocobalamin vitamin b-12 VITAMIN B12 AND FOLATES (01813) [facility]; [facility] Work Phone: Start: 04-21-2016 Procedure Education Eprescribed prescriptions (G8553) [facility] Work Phone: Start: 04-21-2016 Provider Instructions for Treatment Follow up in 3 months [facility] Work Phone: Start: 12-15-2015 Assay of thyroid stimulating hormone tsh TSH (THYROID STIMULATING HORMONE) (04240) [facility]; [facility] Work Phone: Start: 12-15-2015 Thyrotropin Qn TSH (THYROID STIMULATING HORMONE) (46151) [facility] Work Phone: Start: 12-10-2015 Assay of free thyroxine T4, FREE (THYROXINE) (94320) [facility]; [facility] Work Phone: Start: 12-10-2015 T4 free mass conc T4, FREE (THYROXINE) (59584) [facility] Work Phone: Start: 12-10-2015 Assay of triiodothyronine t3 free T3, FREE (TRIDOTHYRONINE) (98994) [facility]; [facility] Work Phone: Start: 12-10-2015 T3 free mass conc T3, FREE (TRIDOTHYRONINE) (31945) [facility] Work Phone: Start: 12-10-2015 1 25 dihydroxy includes fractions if performed VITAMIN D, 1, 25-DIHYDROXY (05050) [facility] Work Phone: Start: 12-02-2015 Procedure Education Eprescribed prescriptions (G8553) [facility] Work Phone: Start: 12-02-2015 Provider Instructions for Treatment [facility] Work Phone: Start: 2007 SHINGRIX VACCINE (1 of 2) SHINGRIX VACCINE (1 of 2) [facility] Start: 2002 COLOGUARD (FIT-DNA) COLOGUARD (FIT-DNA) [facility] Start: 2002 Colonoscopy COLONOSCOPY [facility] Start: 2002 COLORECTAL CANCER SCREENING COLORECTAL CANCER SCREENING [facility] Start: [address] COLONOGRAPHY [facility] Start: 2002 FECAL OCCULT BLOOD FECAL OCCULT BLOOD [facility] Start: 2002 SIGMOIDOSCOPY SIGMOIDOSCOPY [facility] Start: 1976 Urine microalbumin profile DTAP,TDAP,TD (1 - Tdap) [facility] Start: 1975 HEPATITIS C SCREENING HEPATITIS C SCREENING [facility] Work [facility]: [facility]: [facility]: [facility]: [facility]: [facility]: [facility] Work [facility]: [facility] Work [facility]: [facility] Work [facility]: [facility] Work [facility]: [facility] Work [facility] Work [facility]: [facility] Work [facility] Work Phone: [facility] Work Phone: [facility] Work Phone: [facility]; [facility] Work Phone: [facility]; [facility] Work Phone: Payers Date Payer Category Payer Medicare [id number] 2022 Unknown [id number] 2021 Private Health Insurance [id number] 2020 Unknown [id number] 2020 Unknown 2019 Unknown [id number] 1955 Unknown [id number] Social History Date Type Detail Facility Start: 04-20-2021 End: 03-10-2023 Alcohol Use Former smoker [facility] Work Phone: Clinical Notes 01-01-2021 to 03-02-2023 Telephone Encounter - Ashlie Yuan - 03/02/2023 9:10 AM EDT Note Date & Type Note Facility 03-02-2023 Miscellaneous Notes Pt. referred by Birgit Michaud CNP for SOB,Symptoms include dyspnea,exercise intolerance,fatigue,lightheadne ss,palpitation.see referral. Pt referred to Dr. Torrez. Will call back in the next couple weeks to schedule her Apt. Ashlie Yuan March 02, 2023 9:12 AM documented in this encounter [facility] 04-20-2021 Note HNO ID: [id number] Author: Jennifer Mohamud MD Service: ? Author Type: Physician Type: Progress Notes Filed: 04/20/2021 12:16 PM Note Text: Peace is a 66 year old who presents for an annual gynecologic exam without complaints. Postmenopausal: Yes HRT use: No. Last Pap: 11/26/2018 normal HPV: 11/23/2018 negative History of abnormal pap: No Last mammogram: 2019 normal History of abnormal mammogram: No Sexually active: No History of STDS: None Patient concerns for STD exposure: No. 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 - LAP CHOLECYSTECT/CHOLANGIOGRAPHY 04/24/2012 acute cholecystitis, Normal IOC - LUMBAR OR CAUDAL EPIDURAL INJECTION Started 07/26/2012, 08/02/2012 - PAST SURGICAL HISTORY OF Left foot bunion removed aprox 5 years. - PAST SURGICAL HISTORY OF 08/14/2010 right bunionectomy - RT ELBOW CUBITAL TUNNEL ONLY 07/09/2013 [facility] FAMILY HISTORY Problem Relation Age of Onset - Diabetes Mother - Thyroid Mother - Diabetes Father - Hypertension Father - Cancer Father prostate - Heart Father SOCIAL HISTORY Social History Tobacco Use - Smoking status: Former Smoker Quit date: 08/14/1982 Years since quittin.7 - Smokeless tobacco: Never Used Vaping Use - Vaping Use: Never used Substance Use Topics - Alcohol use: Yes Alcohol/week: 10.8 standard drinks Types: 4 Glasses of Wine (5oz), 1 Glasses of wine per week - Drug use: No REVIEW OF SYSTEMS Abdomen: No abdominal pain, nausea, vomiting, diarrhea, or constipation. No bloating, early satiety, indigestion, or increased flatulence. Bladder: No dysuria, gross hematuria, urinary frequency, urinary urgency, or incontinence Breast: No breast lumps, nipple d/c, overlying skin changes, redness or skin retraction Allergies and current medication updated:Yes EXAM: BP 136/84 Ht 5' .236 (1.53m) Wt 167 lb (75.8kg) BMI 32.36 kg/(m2). GENERAL: pleasant, female in no apparent distress HEENT: Normocephalic, atraumatic, mucus membranes moist and no lesions NECK: Supple, full range of motion, no adenopathy and thyroid normal DERMATOLOGY: Normal, without lesions, non-icteric and non-hirsute BREAST: soft, non-tender, symmetric, no dominant mass, normal nipple-areolar complex, no lymphadenopathy and no nipple discharge ABDOMEN: soft, non-tender and no masses PELVIC: external genitalia normal, normal Bartholin's glands, urethra, Kirkpatrick's glands, no vulvar lesions, no cervical lesions, good vaginal support, physiologic discharge present, normal appearing perineal body and perianal region BIMANUAL: uterus normal size, shape and consistency, no adnexal masses and non-tender RECTOVAGINAL: deferred. NEURO: alert and oriented x3,exam grossly non-focal EXTREMITIES: normal ASSESSMENT/PLAN: 1) Health maintenance: Pap/HPV up to date. Mammogram ordered Nutrition, exercise and routine health maintenance exams reviewed. Calcium/Vitamin D supplementation information provided. Colon cancer screening: ordered by pcp 2) Follow up one year or sooner as needed Jennifer Brantley MD [facility] 04-20-2021 Note HNO ID: [id number] Author: Bety Powell Ma Service: ? Author Type: ? Type: Progress Notes Filed: 04/20/2021 12:16 PM Note Text: [employer] offered: Patient declines. [facility] 01-01-2021 Note HNO ID: [id number] Author: Mendel Perez Service: ? Author Type: ? Type: Progress Notes Filed: 01/01/2021 2:30 PM Note Text: POPULATION HEALTH NAVIGATION OUTREACH Action/FYI HM mammo, colorectal cancer screening, diabetes and lipid screens Left vm, no MC for messaging Contact made with patient or family member? NO Pt identified by name and : NO Outreach Outcome/Action Unable to reach patient: Left message Reason for Outreach Care Gap or Scheduling/Wellness visits Payer: Payor: [employer] / Plan: [employer] LINDEN / Product Type: PPO / Care Gap Reviewed:: Annual Wellness visit Follow-up appointment Breast Cancer screening Colorectal Cancer Screening HBA1C Reminder: Reminder note to check Health Maintenance for items below Health Maintenance items due: HEPATITIS C SCREENING Never done DTAP,TDAP,TD(1 - Tdap) Never done COLORECTAL CANCER SCREENING Never done SHINGRIX VACCINE(1 of 2) Never done DEPRESSION SCREENING due on 01/26/2013 DIABETES SCREEN due on 09/18/2017 LIPID SCREEN due on 09/18/2019 MAMMOGRAM due on 11/24/2019 Advanced Directives Completed: Have you ever planned for future healthcare decisions with a power of health care coach, living will, or advance directives? n/a Referrals: N/A Message Sent to Practice: NO Navigation Signature: Mendel Magana [facility] January 01, 2021 2:26 PM [facility] 01-01-2021 Note Patient Outreach (ROCHELLE TNAV) PEACE RESENDEZ ([id number]) 1955 F Date Time Provider Department 01/01/21 MENDEL MAGANA (PSS) SRINIVASA During your visit today, we recorded the following information about you: Mendel Magana Pss 01/01/2021 2:30 PM Signed POPULATION HEALTH NAVIGATION OUTREACH Action/FYI HM mammo, colorectal cancer screening, diabetes and lipid screens Left vm, no MC for messaging Contact made with patient or family member? NO Pt identified by name and : NO Outreach Outcome/Action Unable to reach patient: Left message Reason for Outreach Care Gap or Scheduling/Wellness visits Payer: Payor: [employer] / Plan: [employer] LINDEN / Product Type: PPO / Care Gap Reviewed:: Annual Wellness visit Follow-up appointment Breast Cancer screening Colorectal Cancer Screening HBA1C Reminder: Reminder note to check Health Maintenance for items below Health Maintenance items due: HEPATITIS C SCREENING Never done DTAP,TDAP,TD(1 - Tdap) Never done COLORECTAL CANCER SCREENING Never done SHINGRIX VACCINE(1 of 2) Never done DEPRESSION SCREENING due on 01/26/2013 DIABETES SCREEN due on 09/18/2017 LIPID SCREEN due on 09/18/2019 MAMMOGRAM due on 11/24/2019 Advanced Directives Completed: Have you ever planned for future healthcare decisions with a power of health care coach, living will, or advance directives? n/a Referrals: N/A Message Sent to Practice: NO Navigation Signature: Mendel Magana [facility] January 01, 2021 2:26 PM Allergies As of Date: 01/01/2021 (No Known Allergies) Date Reviewed: 11/21/2018 Reviewed by: Bety Powell Ma - Fully Assessed Reason for Visit: Population Health Navigation Outreach [3910] Cmt: deferred care Prescriptions as of 01/01/2021 Sig: HYDROCHLOROTHIAZIDE 25 MG TAB* CONJUGATED ESTROGENS 0.625 MG* Take 1 tablet by mouth once d* DULOXETINE 60 MG CAPSULE,RAKESH* Take 1 capsule by mouth once * CALCIUM CARBONATE 600 MG (1,5* Take 1 tablet by mouth once d* * MULTIVITAMIN TABLET Take one(1) tablet daily. Problem List As Of Date 01/01/2021 Noted Resolved Cholecystitis, unspecified [K81.9] 04/29/2012 Almanzar-Santos variant Guillain-Boyden syndrome [*10/15/2012 PMB (postmenopausal bleeding) [N95.0] 07/08/2015 Encounter Status:Closed by D'ELSI PSS, MENDEL on 01/01/21 [facility]; [facility] Work Phone: Instructions* Name Dates Details Patient Instructions Indication:BMI 30.0-30.9,adult Start:28-Jun-2021 Instruction Type:Provider Instructions for Treatment How to Access Health Informa tion Online using Patient Portal and 3rd Libertarian Apps Indication:BMI 30.0-30.9,adult Start:28-Jun-2021 Instruction Type:Patient Education Patient Instructions Indication:ADD (attention deficit disorder) Start:20-Apr-2021 Instruction Type:Provider Instructions for Treatment How to Access Health Informa tion Online using Patient Portal and 3rd Libertarian Apps Indication:ADD (attention deficit disorder) Start:20-Apr-2021 Instruction Type:Patient Education Patient Instructions Indication:Nonsmoker Start:16-Mar-2021 Instruction Type:Provider Instructions for Treatment How to Access Health Informa tion Online using Patient Portal and 3rd Libertarian Apps Indication:Nonsmoker Start:16-Mar-2021 Instruction Type:Patient Education Patient Instructions Indication:Nonsmoker Start:01-Mar-2021 Instruction Type:Provider Instructions for Treatment How to Access Health Informa tion Online using Patient Portal and 3rd [employer] Apps Indication:Nonsmoker Start:01-Mar-2021 Instruction Type:Patient Education How to access health informa tion online Indication:BMI 28.0-28.9,adult Start:03-Mar-2020 Instruction Type:Patient Education How to access health informa tion online - Detail Indication:BMI 28.0-28.9,adult Start:03-Mar-2020 Instruction Type:Patient Education Patient Instructions Indication:BMI 28.0-28.9,adult Start:03-Mar-2020 Instruction Type:Provider Instructions for Treatment How to access health informa tion online Indication:Nonsmoker Start:15-Oct-2019 Instruction Type:Patient Education How to access health informa tion online - Detail Indication:Nonsmoker Start:15-Oct-2019 Instruction Type:Patient Education Patient Instructions Indication:Nonsmoker Start:15-Oct-2019 Instruction Type:Provider Instructions for Treatment How to access health informa tion online Indication:Nonsmoker Start:17-Apr-2019 Instruction Type:Patient Education How to access health informa tion online - Detail Indication:Nonsmoker Start:17-Apr-2019 Instruction Type:Patient Education Patient Instructions Indication:Nonsmoker Start:17-Apr-2019 Instruction Type:Provider Instructions for Treatment How to access health informa tion online Indication:BMI 30.0-30.9,adult Start:01-Jan-2018 Instruction Type:Patient Education Patient Instructions Indication:BMI 30.0-30.9,adult Start:01-Jan-2018 Instruction Type:Provider Instructions for Treatment How to access health informa tion online Indication:Paronychia of finger of left hand Start:22-Sep-2017 Instruction Type:Patient Education How to access health informa tion online - Detail Indication:Paronychia of finger of left hand Start:22-Sep-2017 Instruction Type:Patient Education Patient Instructions Indication:Paronychia of finger of left hand Start:22-Sep-2017 Instruction Type:Provider Instructions for Treatment How to access health informa tion online Indication:Impaired fasting glucose Start:31-May-2017 Instruction Type:Patient Education How to access health informa tion online - Detail Indication:Impaired fasting glucose Start:31-May-2017 Instruction Type:Patient Education Patient Instructions Indication:Impaired fasting glucose Start:31-May-2017 Instruction Type:Provider Instructions for Treatment How to access health informa tion online Indication:ADD (attention deficit disorder) Start:27-Jul-2016 Instruction Type:Patient Education How to access health informa tion online - Detail Indication:ADD (attention deficit disorder) Start:27-Jul-2016 Instruction Type:Patient Education Patient Instructions Indication:ADD (attention deficit disorder) Start:27-Jul-2016 Instruction Type:Provider Instructions for Treatment How to access health informa tion online Indication:ADD (attention deficit disorder) Start:21-Apr-2016 Instruction Type:Patient Education How to access health informa tion online - Detail Indication:ADD (attention deficit disorder) Start:21-Apr-2016 Instruction Type:Patient Education Patient Instructions Indication:ADD (attention deficit disorder) Start:21-Apr-2016 Instruction Type:Provider Instructions for Treatment How to access health informa tion online Indication:Hypertension, benign Start:02-Dec-2015 Instruction Type:Patient Education How to access health informa tion online - Detail Indication:Hypertension, benign Start:02-Dec-2015 Instruction Type:Patient Education Patient Instructions Indication:Hypertension, benign Start:02-Dec-2015 Instruction Type:Provider Instructions for Treatment [facility] Work Phone: Instructions* Name Dates Details Patient Instructions Indication:Therapeutic drug monitoring Start:26-Aug-2021 Instruction Type:Provider Instructions for Treatment How to Access Health Informa tion Online using Patient Portal and 3rd [employer] Apps Indication:Therapeutic drug monitoring Start:26-Aug-2021 Instruction Type:Patient Education Patient Instructions Indication:BMI 30.0-30.9,adult Start:28-Jun-2021 Instruction Type:Provider Instructions for Treatment How to Access Health Informa tion Online using Patient Portal and 3rd [employer] Apps Indication:BMI 30.0-30.9,adult Start:28-Jun-2021 Instruction Type:Patient Education Patient Instructions Indication:ADD (attention deficit disorder) Start:20-Apr-2021 Instruction Type:Provider Instructions for Treatment How to Access Health Informa tion Online using Patient Portal and 3rd [employer] Apps Indication:ADD (attention deficit disorder) Start:20-Apr-2021 Instruction Type:Patient Education Patient Instructions Indication:Nonsmoker Start:16-Mar-2021 Instruction Type:Provider Instructions for Treatment How to Access Health Informa tion Online using Patient Portal and 3rd [employer] Apps Indication:Nonsmoker Start:16-Mar-2021 Instruction Type:Patient Education Patient Instructions Indication:Nonsmoker Start:01-Mar-2021 Instruction Type:Provider Instructions for Treatment How to Access Health Informa tion Online using Patient Portal and 3rd [employer] Apps Indication:Nonsmoker Start:01-Mar-2021 Instruction Type:Patient Education How to access health informa tion online Indication:BMI 28.0-28.9,adult Start:03-Mar-2020 Instruction Type:Patient Education How to access health informa tion online - Detail Indication:BMI 28.0-28.9,adult Start:03-Mar-2020 Instruction Type:Patient Education Patient Instructions Indication:BMI 28.0-28.9,adult Start:03-Mar-2020 Instruction Type:Provider Instructions for Treatment How to access health informa tion online Indication:Nonsmoker Start:15-Oct-2019 Instruction Type:Patient Education How to access health informa tion online - Detail Indication:Nonsmoker Start:15-Oct-2019 Instruction Type:Patient Education Patient Instructions Indication:Nonsmoker Start:15-Oct-2019 Instruction Type:Provider Instructions for Treatment How to access health informa tion online Indication:Nonsmoker Start:17-Apr-2019 Instruction Type:Patient Education How to access health informa tion online - Detail Indication:Nonsmoker Start:17-Apr-2019 Instruction Type:Patient Education Patient Instructions Indication:Nonsmoker Start:17-Apr-2019 Instruction Type:Provider Instructions for Treatment How to access health informa tion online Indication:BMI 30.0-30.9,adult Start:01-Jan-2018 Instruction Type:Patient Education Patient Instructions Indication:BMI 30.0-30.9,adult Start:01-Jan-2018 Instruction Type:Provider Instructions for Treatment How to access health informa tion online Indication:Paronychia of finger of left hand Start:22-Sep-2017 Instruction Type:Patient Education How to access health informa tion online - Detail Indication:Paronychia of finger of left hand Start:22-Sep-2017 Instruction Type:Patient Education Patient Instructions Indication:Paronychia of finger of left hand Start:22-Sep-2017 Instruction Type:Provider Instructions for Treatment How to access health informa tion online Indication:Impaired fasting glucose Start:31-May-2017 Instruction Type:Patient Education How to access health informa tion online - Detail Indication:Impaired fasting glucose Start:31-May-2017 Instruction Type:Patient Education Patient Instructions Indication:Impaired fasting glucose Start:31-May-2017 Instruction Type:Provider Instructions for Treatment How to access health informa tion online Indication:ADD (attention deficit disorder) Start:27-Jul-2016 Instruction Type:Patient Education How to access health informa tion online - Detail Indication:ADD (attention deficit disorder) Start:27-Jul-2016 Instruction Type:Patient Education Patient Instructions Indication:ADD (attention deficit disorder) Start:27-Jul-2016 Instruction Type:Provider Instructions for Treatment How to access health informa tion online Indication:ADD (attention deficit disorder) Start:21-Apr-2016 Instruction Type:Patient Education How to access health informa tion online - Detail Indication:ADD (attention deficit disorder) Start:21-Apr-2016 Instruction Type:Patient Education Patient Instructions Indication:ADD (attention deficit disorder) Start:21-Apr-2016 Instruction Type:Provider Instructions for Treatment How to access health informa tion online Indication:Hypertension, benign Start:02-Dec-2015 Instruction Type:Patient Education How to access health informa tion online - Detail Indication:Hypertension, benign Start:02-Dec-2015 Instruction Type:Patient Education Patient Instructions Indication:Hypertension, benign Start:02-Dec-2015 Instruction Type:Provider Instructions for Treatment [facility]; [facility] Work Phone: Instructions* Name Dates Details Patient Instructions Indication:Therapeutic drug monitoring Start:26-Aug-2021 Instruction Type:Provider Instructions for Treatment How to Access Health Informa tion Online using Patient Portal and [employer]rd [employer] Apps Indication:Therapeutic drug monitoring Start:26-Aug-2021 Instruction Type:Patient Education Patient Instructions Indication:BMI 30.0-30.9,adult Start:28-Jun-2021 Instruction Type:Provider Instructions for Treatment How to Access Health Informa tion Online using Patient Portal and [employer]rd [employer] Apps Indication:BMI 30.0-30.9,adult Start:28-Jun-2021 Instruction Type:Patient Education Patient Instructions Indication:ADD (attention deficit disorder) Start:20-Apr-2021 Instruction Type:Provider Instructions for Treatment How to Access Health Informa tion Online using Patient Portal and [employer]rd [employer] Apps Indication:ADD (attention deficit disorder) Start:20-Apr-2021 Instruction Type:Patient Education Patient Instructions Indication:Nonsmoker Start:16-Mar-2021 Instruction Type:Provider Instructions for Treatment How to Access Health Informa tion Online using Patient Portal and [employer]rd [employer] Apps Indication:Nonsmoker Start:16-Mar-2021 Instruction Type:Patient Education Patient Instructions Indication:Nonsmoker Start:01-Mar-2021 Instruction Type:Provider Instructions for Treatment How to Access Health Informa tion Online using Patient Portal and [employer]rd [employer] Apps Indication:Nonsmoker Start:01-Mar-2021 Instruction Type:Patient Education How to access health informa tion online Indication:BMI 28.0-28.9,adult Start:03-Mar-2020 Instruction Type:Patient Education How to access health informa tion online - Detail Indication:BMI 28.0-28.9,adult Start:03-Mar-2020 Instruction Type:Patient Education Patient Instructions Indication:BMI 28.0-28.9,adult Start:03-Mar-2020 Instruction Type:Provider Instructions for Treatment How to access health informa tion online Indication:Nonsmoker Start:15-Oct-2019 Instruction Type:Patient Education How to access health informa tion online - Detail Indication:Nonsmoker Start:15-Oct-2019 Instruction Type:Patient Education Patient Instructions Indication:Nonsmoker Start:15-Oct-2019 Instruction Type:Provider Instructions for Treatment How to access health informa tion online Indication:Nonsmoker Start:17-Apr-2019 Instruction Type:Patient Education How to access health informa tion online - Detail Indication:Nonsmoker Start:17-Apr-2019 Instruction Type:Patient Education Patient Instructions Indication:Nonsmoker Start:17-Apr-2019 Instruction Type:Provider Instructions for Treatment How to access health informa tion online Indication:BMI 30.0-30.9,adult Start:01-Jan-2018 Instruction Type:Patient Education Patient Instructions Indication:BMI 30.0-30.9,adult Start:01-Jan-2018 Instruction Type:Provider Instructions for Treatment How to access health informa tion online Indication:Paronychia of finger of left hand Start:22-Sep-2017 Instruction Type:Patient Education How to access health informa tion online - Detail Indication:Paronychia of finger of left hand Start:22-Sep-2017 Instruction Type:Patient Education Patient Instructions Indication:Paronychia of finger of left hand Start:22-Sep-2017 Instruction Type:Provider Instructions for Treatment How to access health informa tion online Indication:Impaired fasting glucose Start:31-May-2017 Instruction Type:Patient Education How to access health informa tion online - Detail Indication:Impaired fasting glucose Start:31-May-2017 Instruction Type:Patient Education Patient Instructions Indication:Impaired fasting glucose Start:31-May-2017 Instruction Type:Provider Instructions for Treatment How to access health informa tion online Indication:ADD (attention deficit disorder) Start:27-Jul-2016 Instruction Type:Patient Education How to access health informa tion online - Detail Indication:ADD (attention deficit disorder) Start:27-Jul-2016 Instruction Type:Patient Education Patient Instructions Indication:ADD (attention deficit disorder) Start:27-Jul-2016 Instruction Type:Provider Instructions for Treatment How to access health informa tion online Indication:ADD (attention deficit disorder) Start:21-Apr-2016 Instruction Type:Patient Education How to access health informa tion online - Detail Indication:ADD (attention deficit disorder) Start:21-Apr-2016 Instruction Type:Patient Education Patient Instructions Indication:ADD (attention deficit disorder) Start:21-Apr-2016 Instruction Type:Provider Instructions for Treatment How to access health informa tion online Indication:Hypertension, benign Start:02-Dec-2015 Instruction Type:Patient Education How to access health informa tion online - Detail Indication:Hypertension, benign Start:02-Dec-2015 Instruction Type:Patient Education Patient Instructions Indication:Hypertension, benign Start:02-Dec-2015 Instruction Type:Provider Instructions for Treatment [facility]; [facility] Work Phone: Instructions* Name Dates Details Patient Instructions Indication:Therapeutic drug monitoring Start:26-Aug-2021 Instruction Type:Provider Instructions for Treatment How to Access Health Informa tion Online using Patient Portal and [employer]rd [employer] Apps Indication:Therapeutic drug monitoring Start:26-Aug-2021 Instruction Type:Patient Education Patient Instructions Indication:BMI 30.0-30.9,adult Start:28-Jun-2021 Instruction Type:Provider Instructions for Treatment How to Access Health Informa tion Online using Patient Portal and [employer]rd [employer] Apps Indication:BMI 30.0-30.9,adult Start:28-Jun-2021 Instruction Type:Patient Education Patient Instructions Indication:ADD (attention deficit disorder) Start:20-Apr-2021 Instruction Type:Provider Instructions for Treatment How to Access Health Informa tion Online using Patient Portal and [employer]rd [employer] Apps Indication:ADD (attention deficit disorder) Start:20-Apr-2021 Instruction Type:Patient Education Patient Instructions Indication:Nonsmoker Start:16-Mar-2021 Instruction Type:Provider Instructions for Treatment How to Access Health Informa tion Online using Patient Portal and [employer]rd [employer] Apps Indication:Nonsmoker Start:16-Mar-2021 Instruction Type:Patient Education Patient Instructions Indication:Nonsmoker Start:01-Mar-2021 Instruction Type:Provider Instructions for Treatment How to Access Health Informa tion Online using Patient Portal and [employer]rd [employer] Apps Indication:Nonsmoker Start:01-Mar-2021 Instruction Type:Patient Education How to access health informa tion online Indication:BMI 28.0-28.9,adult Start:03-Mar-2020 Instruction Type:Patient Education How to access health informa tion online - Detail Indication:BMI 28.0-28.9,adult Start:03-Mar-2020 Instruction Type:Patient Education Patient Instructions Indication:BMI 28.0-28.9,adult Start:03-Mar-2020 Instruction Type:Provider Instructions for Treatment How to access health informa tion online Indication:Nonsmoker Start:15-Oct-2019 Instruction Type:Patient Education How to access health informa tion online - Detail Indication:Nonsmoker Start:15-Oct-2019 Instruction Type:Patient Education Patient Instructions Indication:Nonsmoker Start:15-Oct-2019 Instruction Type:Provider Instructions for Treatment How to access health informa tion online Indication:Nonsmoker Start:17-Apr-2019 Instruction Type:Patient Education How to access health informa tion online - Detail Indication:Nonsmoker Start:17-Apr-2019 Instruction Type:Patient Education Patient Instructions Indication:Nonsmoker Start:17-Apr-2019 Instruction Type:Provider Instructions for Treatment How to access health informa tion online Indication:BMI 30.0-30.9,adult Start:01-Jan-2018 Instruction Type:Patient Education Patient Instructions Indication:BMI 30.0-30.9,adult Start:01-Jan-2018 Instruction Type:Provider Instructions for Treatment How to access health informa tion online Indication:Paronychia of finger of left hand Start:22-Sep-2017 Instruction Type:Patient Education How to access health informa tion online - Detail Indication:Paronychia of finger of left hand Start:22-Sep-2017 Instruction Type:Patient Education Patient Instructions Indication:Paronychia of finger of left hand Start:22-Sep-2017 Instruction Type:Provider Instructions for Treatment How to access health informa tion online Indication:Impaired fasting glucose Start:31-May-2017 Instruction Type:Patient Education How to access health informa tion online - Detail Indication:Impaired fasting glucose Start:31-May-2017 Instruction Type:Patient Education Patient Instructions Indication:Impaired fasting glucose Start:31-May-2017 Instruction Type:Provider Instructions for Treatment How to access health informa tion online Indication:ADD (attention deficit disorder) Start:27-Jul-2016 Instruction Type:Patient Education How to access health informa tion online - Detail Indication:ADD (attention deficit disorder) Start:27-Jul-2016 Instruction Type:Patient Education Patient Instructions Indication:ADD (attention deficit disorder) Start:27-Jul-2016 Instruction Type:Provider Instructions for Treatment How to access health informa tion online Indication:ADD (attention deficit disorder) Start:21-Apr-2016 Instruction Type:Patient Education How to access health informa tion online - Detail Indication:ADD (attention deficit disorder) Start:21-Apr-2016 Instruction Type:Patient Education Patient Instructions Indication:ADD (attention deficit disorder) Start:21-Apr-2016 Instruction Type:Provider Instructions for Treatment How to access health informa tion online Indication:Hypertension, benign Start:02-Dec-2015 Instruction Type:Patient Education How to access health informa tion online - Detail Indication:Hypertension, benign Start:02-Dec-2015 Instruction Type:Patient Education Patient Instructions Indication:Hypertension, benign Start:02-Dec-2015 Instruction Type:Provider Instructions for Treatment [facility]; [facility] Work Phone: Instructions* Name Dates Details Patient Instructions Indication:Therapeutic drug monitoring Start:26-Aug-2021 Instruction Type:Provider Instructions for Treatment How to Access Health Informa tion Online using Patient Portal and [employer]rd [employer] Apps Indication:Therapeutic drug monitoring Start:26-Aug-2021 Instruction Type:Patient Education Patient Instructions Indication:BMI 30.0-30.9,adult Start:28-Jun-2021 Instruction Type:Provider Instructions for Treatment How to Access Health Informa tion Online using Patient Portal and [employer]rd [employer] Apps Indication:BMI 30.0-30.9,adult Start:28-Jun-2021 Instruction Type:Patient Education Patient Instructions Indication:ADD (attention deficit disorder) Start:20-Apr-2021 Instruction Type:Provider Instructions for Treatment How to Access Health Informa tion Online using Patient Portal and [employer]rd [employer] Apps Indication:ADD (attention deficit disorder) Start:20-Apr-2021 Instruction Type:Patient Education Patient Instructions Indication:Nonsmoker Start:16-Mar-2021 Instruction Type:Provider Instructions for Treatment How to Access Health Informa tion Online using Patient Portal and [employer]rd [employer] Apps Indication:Nonsmoker Start:16-Mar-2021 Instruction Type:Patient Education Patient Instructions Indication:Nonsmoker Start:01-Mar-2021 Instruction Type:Provider Instructions for Treatment How to Access Health Informa tion Online using Patient Portal and [employer]rd [employer] Apps Indication:Nonsmoker Start:01-Mar-2021 Instruction Type:Patient Education How to access health informa tion online Indication:BMI 28.0-28.9,adult Start:03-Mar-2020 Instruction Type:Patient Education How to access health informa tion online - Detail Indication:BMI 28.0-28.9,adult Start:03-Mar-2020 Instruction Type:Patient Education Patient Instructions Indication:BMI 28.0-28.9,adult Start:03-Mar-2020 Instruction Type:Provider Instructions for Treatment How to access health informa tion online Indication:Nonsmoker Start:15-Oct-2019 Instruction Type:Patient Education How to access health informa tion online - Detail Indication:Nonsmoker Start:15-Oct-2019 Instruction Type:Patient Education Patient Instructions Indication:Nonsmoker Start:15-Oct-2019 Instruction Type:Provider Instructions for Treatment How to access health informa tion online Indication:Nonsmoker Start:17-Apr-2019 Instruction Type:Patient Education How to access health informa tion online - Detail Indication:Nonsmoker Start:17-Apr-2019 Instruction Type:Patient Education Patient Instructions Indication:Nonsmoker Start:17-Apr-2019 Instruction Type:Provider Instructions for Treatment How to access health informa tion online Indication:BMI 30.0-30.9,adult Start:01-Jan-2018 Instruction Type:Patient Education Patient Instructions Indication:BMI 30.0-30.9,adult Start:01-Jan-2018 Instruction Type:Provider Instructions for Treatment How to access health informa tion online Indication:Paronychia of finger of left hand Start:22-Sep-2017 Instruction Type:Patient Education How to access health informa tion online - Detail Indication:Paronychia of finger of left hand Start:22-Sep-2017 Instruction Type:Patient Education Patient Instructions Indication:Paronychia of finger of left hand Start:22-Sep-2017 Instruction Type:Provider Instructions for Treatment How to access health informa tion online Indication:Impaired fasting glucose Start:31-May-2017 Instruction Type:Patient Education How to access health informa tion online - Detail Indication:Impaired fasting glucose Start:31-May-2017 Instruction Type:Patient Education Patient Instructions Indication:Impaired fasting glucose Start:31-May-2017 Instruction Type:Provider Instructions for Treatment How to access health informa tion online Indication:ADD (attention deficit disorder) Start:27-Jul-2016 Instruction Type:Patient Education How to access health informa tion online - Detail Indication:ADD (attention deficit disorder) Start:27-Jul-2016 Instruction Type:Patient Education Patient Instructions Indication:ADD (attention deficit disorder) Start:27-Jul-2016 Instruction Type:Provider Instructions for Treatment How to access health informa tion online Indication:ADD (attention deficit disorder) Start:21-Apr-2016 Instruction Type:Patient Education How to access health informa tion online - Detail Indication:ADD (attention deficit disorder) Start:21-Apr-2016 Instruction Type:Patient Education Patient Instructions Indication:ADD (attention deficit disorder) Start:21-Apr-2016 Instruction Type:Provider Instructions for Treatment How to access health informa tion online Indication:Hypertension, benign Start:02-Dec-2015 Instruction Type:Patient Education How to access health informa tion online - Detail Indication:Hypertension, benign Start:02-Dec-2015 Instruction Type:Patient Education Patient Instructions Indication:Hypertension, benign Start:02-Dec-2015 Instruction Type:Provider Instructions for Treatment [facility]; [facility] Work Phone: Instructions* Name Dates Details Patient Instructions Indication:Nonsmoker Start:08-Feb-2022 Instruction Type:Provider Instructions for Treatment How to Access Health Informa tion Online using Patient Portal and [employer]rd [employer] Apps Indication:Nonsmoker Start:08-Feb-2022 Instruction Type:Patient Education Patient Instructions Indication:Therapeutic drug monitoring Start:26-Aug-2021 Instruction Type:Provider Instructions for Treatment How to Access Health Informa tion Online using Patient Portal and [employer]rd [employer] Apps Indication:Therapeutic drug monitoring Start:26-Aug-2021 Instruction Type:Patient Education Patient Instructions Indication:BMI 30.0-30.9,adult Start:28-Jun-2021 Instruction Type:Provider Instructions for Treatment How to Access Health Informa tion Online using Patient Portal and [employer]rd [employer] Apps Indication:BMI 30.0-30.9,adult Start:28-Jun-2021 Instruction Type:Patient Education Patient Instructions Indication:ADD (attention deficit disorder) Start:20-Apr-2021 Instruction Type:Provider Instructions for Treatment How to Access Health Informa tion Online using Patient Portal and [employer]rd [employer] Apps Indication:ADD (attention deficit disorder) Start:20-Apr-2021 Instruction Type:Patient Education Patient Instructions Indication:Nonsmoker Start:16-Mar-2021 Instruction Type:Provider Instructions for Treatment How to Access Health Informa tion Online using Patient Portal and [employer]rd [employer] Apps Indication:Nonsmoker Start:16-Mar-2021 Instruction Type:Patient Education Patient Instructions Indication:Nonsmoker Start:01-Mar-2021 Instruction Type:Provider Instructions for Treatment How to Access Health Informa tion Online using Patient Portal and [employer]rd [employer] Apps Indication:Nonsmoker Start:01-Mar-2021 Instruction Type:Patient Education How to access health informa tion online Indication:BMI 28.0-28.9,adult Start:03-Mar-2020 Instruction Type:Patient Education How to access health informa tion online - Detail Indication:BMI 28.0-28.9,adult Start:03-Mar-2020 Instruction Type:Patient Education Patient Instructions Indication:BMI 28.0-28.9,adult Start:03-Mar-2020 Instruction Type:Provider Instructions for Treatment How to access health informa tion online Indication:Nonsmoker Start:15-Oct-2019 Instruction Type:Patient Education How to access health informa tion online - Detail Indication:Nonsmoker Start:15-Oct-2019 Instruction Type:Patient Education Patient Instructions Indication:Nonsmoker Start:15-Oct-2019 Instruction Type:Provider Instructions for Treatment How to access health informa tion online Indication:Nonsmoker Start:17-Apr-2019 Instruction Type:Patient Education How to access health informa tion online - Detail Indication:Nonsmoker Start:17-Apr-2019 Instruction Type:Patient Education Patient Instructions Indication:Nonsmoker Start:17-Apr-2019 Instruction Type:Provider Instructions for Treatment How to access health informa tion online Indication:BMI 30.0-30.9,adult Start:01-Jan-2018 Instruction Type:Patient Education Patient Instructions Indication:BMI 30.0-30.9,adult Start:01-Jan-2018 Instruction Type:Provider Instructions for Treatment How to access health informa tion online Indication:Paronychia of finger of left hand Start:22-Sep-2017 Instruction Type:Patient Education How to access health informa tion online - Detail Indication:Paronychia of finger of left hand Start:22-Sep-2017 Instruction Type:Patient Education Patient Instructions Indication:Paronychia of finger of left hand Start:22-Sep-2017 Instruction Type:Provider Instructions for Treatment How to access health informa tion online Indication:Impaired fasting glucose Start:31-May-2017 Instruction Type:Patient Education How to access health informa tion online - Detail Indication:Impaired fasting glucose Start:31-May-2017 Instruction Type:Patient Education Patient Instructions Indication:Impaired fasting glucose Start:31-May-2017 Instruction Type:Provider Instructions for Treatment How to access health informa tion online Indication:ADD (attention deficit disorder) Start:27-Jul-2016 Instruction Type:Patient Education How to access health informa tion online - Detail Indication:ADD (attention deficit disorder) Start:27-Jul-2016 Instruction Type:Patient Education Patient Instructions Indication:ADD (attention deficit disorder) Start:27-Jul-2016 Instruction Type:Provider Instructions for Treatment How to access health informa tion online Indication:ADD (attention deficit disorder) Start:21-Apr-2016 Instruction Type:Patient Education How to access health informa tion online - Detail Indication:ADD (attention deficit disorder) Start:21-Apr-2016 Instruction Type:Patient Education Patient Instructions Indication:ADD (attention deficit disorder) Start:21-Apr-2016 Instruction Type:Provider Instructions for Treatment How to access health informa tion online Indication:Hypertension, benign Start:02-Dec-2015 Instruction Type:Patient Education How to access health informa tion online - Detail Indication:Hypertension, benign Start:02-Dec-2015 Instruction Type:Patient Education Patient Instructions Indication:Hypertension, benign Start:02-Dec-2015 Instruction Type:Provider Instructions for Treatment [facility]; [facility] Work Phone: Instructions* Name Dates Details Patient Instructions Indication:Nonsmoker Start:08-Feb-2022 Instruction Type:Provider Instructions for Treatment How to Access Health Informa tion Online using Patient Portal and [employer]rd [employer] Apps Indication:Nonsmoker Start:08-Feb-2022 Instruction Type:Patient Education Patient Instructions Indication:Therapeutic drug monitoring Start:26-Aug-2021 Instruction Type:Provider Instructions for Treatment How to Access Health Informa tion Online using Patient Portal and [employer]rd [employer] Apps Indication:Therapeutic drug monitoring Start:26-Aug-2021 Instruction Type:Patient Education Patient Instructions Indication:BMI 30.0-30.9,adult Start:28-Jun-2021 Instruction Type:Provider Instructions for Treatment How to Access Health Informa tion Online using Patient Portal and [employer]rd [employer] Apps Indication:BMI 30.0-30.9,adult Start:28-Jun-2021 Instruction Type:Patient Education Patient Instructions Indication:ADD (attention deficit disorder) Start:20-Apr-2021 Instruction Type:Provider Instructions for Treatment How to Access Health Informa tion Online using Patient Portal and [employer]rd [employer] Apps Indication:ADD (attention deficit disorder) Start:20-Apr-2021 Instruction Type:Patient Education Patient Instructions Indication:Nonsmoker Start:16-Mar-2021 Instruction Type:Provider Instructions for Treatment How to Access Health Informa tion Online using Patient Portal and [employer]rd [employer] Apps Indication:Nonsmoker Start:16-Mar-2021 Instruction Type:Patient Education Patient Instructions Indication:Nonsmoker Start:01-Mar-2021 Instruction Type:Provider Instructions for Treatment How to Access Health Informa tion Online using Patient Portal and [employer]rd [employer] Apps Indication:Nonsmoker Start:01-Mar-2021 Instruction Type:Patient Education How to access health informa tion online Indication:BMI 28.0-28.9,adult Start:03-Mar-2020 Instruction Type:Patient Education How to access health informa tion online - Detail Indication:BMI 28.0-28.9,adult Start:03-Mar-2020 Instruction Type:Patient Education Patient Instructions Indication:BMI 28.0-28.9,adult Start:03-Mar-2020 Instruction Type:Provider Instructions for Treatment How to access health informa tion online Indication:Nonsmoker Start:15-Oct-2019 Instruction Type:Patient Education How to access health informa tion online - Detail Indication:Nonsmoker Start:15-Oct-2019 Instruction Type:Patient Education Patient Instructions Indication:Nonsmoker Start:15-Oct-2019 Instruction Type:Provider Instructions for Treatment How to access health informa tion online Indication:Nonsmoker Start:17-Apr-2019 Instruction Type:Patient Education How to access health informa tion online - Detail Indication:Nonsmoker Start:17-Apr-2019 Instruction Type:Patient Education Patient Instructions Indication:Nonsmoker Start:17-Apr-2019 Instruction Type:Provider Instructions for Treatment How to access health informa tion online Indication:BMI 30.0-30.9,adult Start:01-Jan-2018 Instruction Type:Patient Education Patient Instructions Indication:BMI 30.0-30.9,adult Start:01-Jan-2018 Instruction Type:Provider Instructions for Treatment How to access health informa tion online Indication:Paronychia of finger of left hand Start:22-Sep-2017 Instruction Type:Patient Education How to access health informa tion online - Detail Indication:Paronychia of finger of left hand Start:22-Sep-2017 Instruction Type:Patient Education Patient Instructions Indication:Paronychia of finger of left hand Start:22-Sep-2017 Instruction Type:Provider Instructions for Treatment How to access health informa tion online Indication:Impaired fasting glucose Start:31-May-2017 Instruction Type:Patient Education How to access health informa tion online - Detail Indication:Impaired fasting glucose Start:31-May-2017 Instruction Type:Patient Education Patient Instructions Indication:Impaired fasting glucose Start:31-May-2017 Instruction Type:Provider Instructions for Treatment How to access health informa tion online Indication:ADD (attention deficit disorder) Start:27-Jul-2016 Instruction Type:Patient Education How to access health informa tion online - Detail Indication:ADD (attention deficit disorder) Start:27-Jul-2016 Instruction Type:Patient Education Patient Instructions Indication:ADD (attention deficit disorder) Start:27-Jul-2016 Instruction Type:Provider Instructions for Treatment How to access health informa tion online Indication:ADD (attention deficit disorder) Start:21-Apr-2016 Instruction Type:Patient Education How to access health informa tion online - Detail Indication:ADD (attention deficit disorder) Start:21-Apr-2016 Instruction Type:Patient Education Patient Instructions Indication:ADD (attention deficit disorder) Start:21-Apr-2016 Instruction Type:Provider Instructions for Treatment How to access health informa tion online Indication:Hypertension, benign Start:02-Dec-2015 Instruction Type:Patient Education How to access health informa tion online - Detail Indication:Hypertension, benign Start:02-Dec-2015 Instruction Type:Patient Education Patient Instructions Indication:Hypertension, benign Start:02-Dec-2015 Instruction Type:Provider Instructions for Treatment [facility]; [facility] Work Phone: Instructions* Name Dates Details Patient Instructions Indication:Nonsmoker Start:08-Feb-2022 Instruction Type:Provider Instructions for Treatment How to Access Health Informa tion Online using Patient Portal and [employer] Apps Indication:Nonsmoker Start:08-Feb-2022 Instruction Type:Patient Education Patient Instructions Indication:Therapeutic drug monitoring Start:26-Aug-2021 Instruction Type:Provider Instructions for Treatment How to Access Health Informa tion Online using Patient Portal and [employer] Indication:Therapeutic drug monitoring Start:26-Aug-2021 Instruction Type:Patient Education Patient Instructions Indication:BMI 30.0-30.9,adult Start:28-Jun-2021 Instruction Type:Provider Instructions for Treatment How to Access Health Informa tion Online using Patient Portal and [employer] Apps Indication:BMI 30.0-30.9,adult Start:28-Jun-2021 Instruction Type:Patient Education Patient Instructions Indication:ADD (attention deficit disorder) Start:20-Apr-2021 Instruction Type:Provider Instructions for Treatment How to Access Health Informa tion Online using Patient Portal and [employer] Apps Indication:ADD (attention deficit disorder) Start:20-Apr-2021 Instruction Type:Patient Education Patient Instructions Indication:Nonsmoker Start:16-Mar-2021 Instruction Type:Provider Instructions for Treatment How to Access Health Informa tion Online using Patient Portal and [employer] Apps Indication:Nonsmoker Start:16-Mar-2021 Instruction Type:Patient Education Patient Instructions Indication:Nonsmoker Start:01-Mar-2021 Instruction Type:Provider Instructions for Treatment How to Access Health Informa tion Online using Patient Portal and [employer] Apps Indication:Nonsmoker Start:01-Mar-2021 Instruction Type:Patient Education How to access health informa tion online Indication:BMI 28.0-28.9,adult Start:03-Mar-2020 Instruction Type:Patient Education How to access health informa tion online - Detail Indication:BMI 28.0-28.9,adult Start:03-Mar-2020 Instruction Type:Patient Education Patient Instructions Indication:BMI 28.0-28.9,adult Start:03-Mar-2020 Instruction Type:Provider Instructions for Treatment How to access health informa tion online Indication:Nonsmoker Start:15-Oct-2019 Instruction Type:Patient Education How to access health informa tion online - Detail Indication:Nonsmoker Start:15-Oct-2019 Instruction Type:Patient Education Patient Instructions Indication:Nonsmoker Start:15-Oct-2019 Instruction Type:Provider Instructions for Treatment How to access health informa tion online Indication:Nonsmoker Start:17-Apr-2019 Instruction Type:Patient Education How to access health informa tion online - Detail Indication:Nonsmoker Start:17-Apr-2019 Instruction Type:Patient Education Patient Instructions Indication:Nonsmoker Start:17-Apr-2019 Instruction Type:Provider Instructions for Treatment How to access health informa tion online Indication:BMI 30.0-30.9,adult Start:01-Jan-2018 Instruction Type:Patient Education Patient Instructions Indication:BMI 30.0-30.9,adult Start:01-Jan-2018 Instruction Type:Provider Instructions for Treatment How to access health informa tion online Indication:Paronychia of finger of left hand Start:22-Sep-2017 Instruction Type:Patient Education How to access health informa tion online - Detail Indication:Paronychia of finger of left hand Start:22-Sep-2017 Instruction Type:Patient Education Patient Instructions Indication:Paronychia of finger of left hand Start:22-Sep-2017 Instruction Type:Provider Instructions for Treatment How to access health informa tion online Indication:Impaired fasting glucose Start:31-May-2017 Instruction Type:Patient Education How to access health informa tion online - Detail Indication:Impaired fasting glucose Start:31-May-2017 Instruction Type:Patient Education Patient Instructions Indication:Impaired fasting glucose Start:31-May-2017 Instruction Type:Provider Instructions for Treatment How to access health informa tion online Indication:ADD (attention deficit disorder) Start:27-Jul-2016 Instruction Type:Patient Education How to access health informa tion online - Detail Indication:ADD (attention deficit disorder) Start:27-Jul-2016 Instruction Type:Patient Education Patient Instructions Indication:ADD (attention deficit disorder) Start:27-Jul-2016 Instruction Type:Provider Instructions for Treatment How to access health informa tion online Indication:ADD (attention deficit disorder) Start:21-Apr-2016 Instruction Type:Patient Education How to access health informa tion online - Detail Indication:ADD (attention deficit disorder) Start:21-Apr-2016 Instruction Type:Patient Education Patient Instructions Indication:ADD (attention deficit disorder) Start:21-Apr-2016 Instruction Type:Provider Instructions for Treatment How to access health informa tion online Indication:Hypertension, benign Start:02-Dec-2015 Instruction Type:Patient Education How to access health informa tion online - Detail Indication:Hypertension, benign Start:02-Dec-2015 Instruction Type:Patient Education Patient Instructions Indication:Hypertension, benign Start:02-Dec-2015 Instruction Type:Provider Instructions for Treatment [facility]; [facility] Work Phone: Instructions* Name Dates Details Patient Instructions Indication:BMI 30.0-30.9,adult Start:24-Nov-2022 Instruction Type:Provider Instructions for Treatment How to Access Health Informa tion Online using Patient Portal and [employer] Apps Indication:BMI 30.0-30.9,adult Start:24-Nov-2022 Instruction Type:Patient Education Patient Instructions Indication:Nonsmoker Start:08-Feb-2022 Instruction Type:Provider Instructions for Treatment How to Access Health Informa tion Online using Patient Portal and [employer] Apps Indication:Nonsmoker Start:08-Feb-2022 Instruction Type:Patient Education Patient Instructions Indication:Therapeutic drug monitoring Start:26-Aug-2021 Instruction Type:Provider Instructions for Treatment How to Access Health Informa tion Online using Patient Portal and [employer] Apps Indication:Therapeutic drug monitoring Start:26-Aug-2021 Instruction Type:Patient Education Patient Instructions Indication:BMI 30.0-30.9,adult Start:28-Jun-2021 Instruction Type:Provider Instructions for Treatment How to Access Health Informa tion Online using Patient Portal and [employer] Apps Indication:BMI 30.0-30.9,adult Start:28-Jun-2021 Instruction Type:Patient Education Patient Instructions Indication:ADD (attention deficit disorder) Start:20-Apr-2021 Instruction Type:Provider Instructions for Treatment How to Access Health Informa tion Online using Patient Portal and [employer] Apps Indication:ADD (attention deficit disorder) Start:20-Apr-2021 Instruction Type:Patient Education Patient Instructions Indication:Nonsmoker Start:16-Mar-2021 Instruction Type:Provider Instructions for Treatment How to Access Health Informa tion Online using Patient Portal and [employer] Apps Indication:Nonsmoker Start:16-Mar-2021 Instruction Type:Patient Education Patient Instructions Indication:Nonsmoker Start:01-Mar-2021 Instruction Type:Provider Instructions for Treatment How to Access Health Informa tion Online using Patient Portal and [employer] Apps Indication:Nonsmoker Start:01-Mar-2021 Instruction Type:Patient Education How to access health informa tion online Indication:BMI 28.0-28.9,adult Start:03-Mar-2020 Instruction Type:Patient Education How to access health informa tion online - Detail Indication:BMI 28.0-28.9,adult Start:03-Mar-2020 Instruction Type:Patient Education Patient Instructions Indication:BMI 28.0-28.9,adult Start:03-Mar-2020 Instruction Type:Provider Instructions for Treatment How to access health informa tion online Indication:Nonsmoker Start:15-Oct-2019 Instruction Type:Patient Education How to access health informa tion online - Detail Indication:Nonsmoker Start:15-Oct-2019 Instruction Type:Patient Education Patient Instructions Indication:Nonsmoker Start:15-Oct-2019 Instruction Type:Provider Instructions for Treatment How to access health informa tion online Indication:Nonsmoker Start:17-Apr-2019 Instruction Type:Patient Education How to access health informa tion online - Detail Indication:Nonsmoker Start:17-Apr-2019 Instruction Type:Patient Education Patient Instructions Indication:Nonsmoker Start:17-Apr-2019 Instruction Type:Provider Instructions for Treatment How to access health informa tion online Indication:BMI 30.0-30.9,adult Start:01-Jan-2018 Instruction Type:Patient Education Patient Instructions Indication:BMI 30.0-30.9,adult Start:01-Jan-2018 Instruction Type:Provider Instructions for Treatment How to access health informa tion online Indication:Paronychia of finger of left hand Start:22-Sep-2017 Instruction Type:Patient Education How to access health informa tion online - Detail Indication:Paronychia of finger of left hand Start:22-Sep-2017 Instruction Type:Patient Education Patient Instructions Indication:Paronychia of finger of left hand Start:22-Sep-2017 Instruction Type:Provider Instructions for Treatment How to access health informa tion online Indication:Impaired fasting glucose Start:31-May-2017 Instruction Type:Patient Education How to access health informa tion online - Detail Indication:Impaired fasting glucose Start:31-May-2017 Instruction Type:Patient Education Patient Instructions Indication:Impaired fasting glucose Start:31-May-2017 Instruction Type:Provider Instructions for Treatment How to access health informa tion online Indication:ADD (attention deficit disorder) Start:27-Jul-2016 Instruction Type:Patient Education How to access health informa tion online - Detail Indication:ADD (attention deficit disorder) Start:27-Jul-2016 Instruction Type:Patient Education Patient Instructions Indication:ADD (attention deficit disorder) Start:27-Jul-2016 Instruction Type:Provider Instructions for Treatment How to access health informa tion online Indication:ADD (attention deficit disorder) Start:21-Apr-2016 Instruction Type:Patient Education How to access health informa tion online - Detail Indication:ADD (attention deficit disorder) Start:21-Apr-2016 Instruction Type:Patient Education Patient Instructions Indication:ADD (attention deficit disorder) Start:21-Apr-2016 Instruction Type:Provider Instructions for Treatment How to access health informa tion online Indication:Hypertension, benign Start:02-Dec-2015 Instruction Type:Patient Education How to access health informa tion online - Detail Indication:Hypertension, benign Start:02-Dec-2015 Instruction Type:Patient Education Patient Instructions Indication:Hypertension, benign Start:02-Dec-2015 Instruction Type:Provider Instructions for Treatment [facility]; [facility] Work Phone: Instructions* Name Dates Details Patient Instructions Indication:BMI 30.0-30.9,adult Start:24-Nov-2022 Instruction Type:Provider Instructions for Treatment How to Access Health Informa tion Online using Patient Portal and [employer] Apps Indication:BMI 30.0-30.9,adult Start:24-Nov-2022 Instruction Type:Patient Education Patient Instructions Indication:Nonsmoker Start:08-Feb-2022 Instruction Type:Provider Instructions for Treatment How to Access Health Informa tion Online using Patient Portal and [employer] Apps Indication:Nonsmoker Start:08-Feb-2022 Instruction Type:Patient Education Patient Instructions Indication:Therapeutic drug monitoring Start:26-Aug-2021 Instruction Type:Provider Instructions for Treatment How to Access Health Informa tion Online using Patient Portal and [employer] Apps Indication:Therapeutic drug monitoring Start:26-Aug-2021 Instruction Type:Patient Education Patient Instructions Indication:BMI 30.0-30.9,adult Start:28-Jun-2021 Instruction Type:Provider Instructions for Treatment How to Access Health Informa tion Online using Patient Portal and [employer] Apps Indication:BMI 30.0-30.9,adult Start:28-Jun-2021 Instruction Type:Patient Education Patient Instructions Indication:ADD (attention deficit disorder) Start:20-Apr-2021 Instruction Type:Provider Instructions for Treatment How to Access Health Informa tion Online using Patient Portal and [employer] Apps Indication:ADD (attention deficit disorder) Start:20-Apr-2021 Instruction Type:Patient Education Patient Instructions Indication:Nonsmoker Start:16-Mar-2021 Instruction Type:Provider Instructions for Treatment How to Access Health Informa tion Online using Patient Portal and [employer] Apps Indication:Nonsmoker Start:16-Mar-2021 Instruction Type:Patient Education Patient Instructions Indication:Nonsmoker Start:01-Mar-2021 Instruction Type:Provider Instructions for Treatment How to Access Health Informa tion Online using Patient Portal and [employer] Apps Indication:Nonsmoker Start:01-Mar-2021 Instruction Type:Patient Education How to access health informa tion online Indication:BMI 28.0-28.9,adult Start:03-Mar-2020 Instruction Type:Patient Education How to access health informa tion online - Detail Indication:BMI 28.0-28.9,adult Start:03-Mar-2020 Instruction Type:Patient Education Patient Instructions Indication:BMI 28.0-28.9,adult Start:03-Mar-2020 Instruction Type:Provider Instructions for Treatment How to access health informa tion online Indication:Nonsmoker Start:15-Oct-2019 Instruction Type:Patient Education How to access health informa tion online - Detail Indication:Nonsmoker Start:15-Oct-2019 Instruction Type:Patient Education Patient Instructions Indication:Nonsmoker Start:15-Oct-2019 Instruction Type:Provider Instructions for Treatment How to access health informa tion online Indication:Nonsmoker Start:17-Apr-2019 Instruction Type:Patient Education How to access health informa tion online - Detail Indication:Nonsmoker Start:17-Apr-2019 Instruction Type:Patient Education Patient Instructions Indication:Nonsmoker Start:17-Apr-2019 Instruction Type:Provider Instructions for Treatment How to access health informa tion online Indication:BMI 30.0-30.9,adult Start:01-Jan-2018 Instruction Type:Patient Education Patient Instructions Indication:BMI 30.0-30.9,adult Start:01-Jan-2018 Instruction Type:Provider Instructions for Treatment How to access health informa tion online Indication:Paronychia of finger of left hand Start:22-Sep-2017 Instruction Type:Patient Education How to access health informa tion online - Detail Indication:Paronychia of finger of left hand Start:22-Sep-2017 Instruction Type:Patient Education Patient Instructions Indication:Paronychia of finger of left hand Start:22-Sep-2017 Instruction Type:Provider Instructions for Treatment How to access health informa tion online Indication:Impaired fasting glucose Start:31-May-2017 Instruction Type:Patient Education How to access health informa tion online - Detail Indication:Impaired fasting glucose Start:31-May-2017 Instruction Type:Patient Education Patient Instructions Indication:Impaired fasting glucose Start:31-May-2017 Instruction Type:Provider Instructions for Treatment How to access health informa tion online Indication:ADD (attention deficit disorder) Start:27-Jul-2016 Instruction Type:Patient Education How to access health informa tion online - Detail Indication:ADD (attention deficit disorder) Start:27-Jul-2016 Instruction Type:Patient Education Patient Instructions Indication:ADD (attention deficit disorder) Start:27-Jul-2016 Instruction Type:Provider Instructions for Treatment How to access health informa tion online Indication:ADD (attention deficit disorder) Start:21-Apr-2016 Instruction Type:Patient Education How to access health informa tion online - Detail Indication:ADD (attention deficit disorder) Start:21-Apr-2016 Instruction Type:Patient Education Patient Instructions Indication:ADD (attention deficit disorder) Start:21-Apr-2016 Instruction Type:Provider Instructions for Treatment How to access health informa tion online Indication:Hypertension, benign Start:02-Dec-2015 Instruction Type:Patient Education How to access health informa tion online - Detail Indication:Hypertension, benign Start:02-Dec-2015 Instruction Type:Patient Education Patient Instructions Indication:Hypertension, benign Start:02-Dec-2015 Instruction Type:Provider Instructions for Treatment [facility]; [facility] Work Phone: Instructions* Name Dates Details How to Access Health Informa tion Online using Patient Portal and [employer] Indication:BMI 30.0-30.9,adult Start:14-Dec-2022 Instruction Type:Patient Education Patient Instructions Indication:BMI 30.0-30.9,adult Start:14-Dec-2022 Instruction Type:Provider Instructions for Treatment Patient Instructions Indication:BMI 30.0-30.9,adult Start:24-Nov-2022 Instruction Type:Provider Instructions for Treatment How to Access Health Informa tion Online using Patient Portal and [employer] Indication:BMI 30.0-30.9,adult Start:24-Nov-2022 Instruction Type:Patient Education Patient Instructions Indication:Nonsmoker Start:08-Feb-2022 Instruction Type:Provider Instructions for Treatment How to Access Health Informa tion Online using Patient Portal and [employer] Indication:Nonsmoker Start:08-Feb-2022 Instruction Type:Patient Education Patient Instructions Indication:Therapeutic drug monitoring Start:26-Aug-2021 Instruction Type:Provider Instructions for Treatment How to Access Health Informa tion Online using Patient Portal and [employer] Indication:Therapeutic drug monitoring Start:26-Aug-2021 Instruction Type:Patient Education Patient Instructions Indication:BMI 30.0-30.9,adult Start:28-Jun-2021 Instruction Type:Provider Instructions for Treatment How to Access Health Informa tion Online using Patient Portal and [employer] Indication:BMI 30.0-30.9,adult Start:28-Jun-2021 Instruction Type:Patient Education Patient Instructions Indication:ADD (attention deficit disorder) Start:20-Apr-2021 Instruction Type:Provider Instructions for Treatment How to Access Health Informa tion Online using Patient Portal and [employer] Indication:ADD (attention deficit disorder) Start:20-Apr-2021 Instruction Type:Patient Education Patient Instructions Indication:Nonsmoker Start:16-Mar-2021 Instruction Type:Provider Instructions for Treatment How to Access Health Informa tion Online using Patient Portal and [employer] Indication:Nonsmoker Start:16-Mar-2021 Instruction Type:Patient Education Patient Instructions Indication:Nonsmoker Start:01-Mar-2021 Instruction Type:Provider Instructions for Treatment How to Access Health Informa tion Online using Patient Portal and [employer] Indication:Nonsmoker Start:01-Mar-2021 Instruction Type:Patient Education How to access health informa tion online Indication:BMI 28.0-28.9,adult Start:03-Mar-2020 Instruction Type:Patient Education How to access health informa tion online - Detail Indication:BMI 28.0-28.9,adult Start:03-Mar-2020 Instruction Type:Patient Education Patient Instructions Indication:BMI 28.0-28.9,adult Start:03-Mar-2020 Instruction Type:Provider Instructions for Treatment How to access health informa tion online Indication:Nonsmoker Start:15-Oct-2019 Instruction Type:Patient Education How to access health informa tion online - Detail Indication:Nonsmoker Start:15-Oct-2019 Instruction Type:Patient Education Patient Instructions Indication:Nonsmoker Start:15-Oct-2019 Instruction Type:Provider Instructions for Treatment How to access health informa tion online Indication:Nonsmoker Start:17-Apr-2019 Instruction Type:Patient Education How to access health informa tion online - Detail Indication:Nonsmoker Start:17-Apr-2019 Instruction Type:Patient Education Patient Instructions Indication:Nonsmoker Start:17-Apr-2019 Instruction Type:Provider Instructions for Treatment How to access health informa tion online Indication:BMI 30.0-30.9,adult Start:01-Jan-2018 Instruction Type:Patient Education Patient Instructions Indication:BMI 30.0-30.9,adult Start:01-Jan-2018 Instruction Type:Provider Instructions for Treatment How to access health informa tion online Indication:Paronychia of finger of left hand Start:22-Sep-2017 Instruction Type:Patient Education How to access health informa tion online - Detail Indication:Paronychia of finger of left hand Start:22-Sep-2017 Instruction Type:Patient Education Patient Instructions Indication:Paronychia of finger of left hand Start:22-Sep-2017 Instruction Type:Provider Instructions for Treatment How to access health informa tion online Indication:Impaired fasting glucose Start:31-May-2017 Instruction Type:Patient Education How to access health informa tion online - Detail Indication:Impaired fasting glucose Start:31-May-2017 Instruction Type:Patient Education Patient Instructions Indication:Impaired fasting glucose Start:31-May-2017 Instruction Type:Provider Instructions for Treatment How to access health informa tion online Indication:ADD (attention deficit disorder) Start:27-Jul-2016 Instruction Type:Patient Education How to access health informa tion online - Detail Indication:ADD (attention deficit disorder) Start:27-Jul-2016 Instruction Type:Patient Education Patient Instructions Indication:ADD (attention deficit disorder) Start:27-Jul-2016 Instruction Type:Provider Instructions for Treatment How to access health informa tion online Indication:ADD (attention deficit disorder) Start:21-Apr-2016 Instruction Type:Patient Education How to access health informa tion online - Detail Indication:ADD (attention deficit disorder) Start:21-Apr-2016 Instruction Type:Patient Education Patient Instructions Indication:ADD (attention deficit disorder) Start:21-Apr-2016 Instruction Type:Provider Instructions for Treatment How to access health informa tion online Indication:Hypertension, benign Start:02-Dec-2015 Instruction Type:Patient Education How to access health informa tion online - Detail Indication:Hypertension, benign Start:02-Dec-2015 Instruction Type:Patient Education Patient Instructions Indication:Hypertension, benign Start:02-Dec-2015 Instruction Type:Provider Instructions for Treatment [facility]; [facility] Work Phone: Instructions* Name Dates Details How to Access Health Informa tion Online using Patient Portal and [employer]rd [employer] Apps Indication:BMI 30.0-30.9,adult Start:14-Dec-2022 Instruction Type:Patient Education Patient Instructions Indication:BMI 30.0-30.9,adult Start:14-Dec-2022 Instruction Type:Provider Instructions for Treatment Patient Instructions Indication:BMI 30.0-30.9,adult Start:24-Nov-2022 Instruction Type:Provider Instructions for Treatment How to Access Health Informa tion Online using Patient Portal and [employer]rd [employer] Apps Indication:BMI 30.0-30.9,adult Start:24-Nov-2022 Instruction Type:Patient Education Patient Instructions Indication:Nonsmoker Start:08-Feb-2022 Instruction Type:Provider Instructions for Treatment How to Access Health Informa tion Online using Patient Portal and [employer]rd [employer] Apps Indication:Nonsmoker Start:08-Feb-2022 Instruction Type:Patient Education Patient Instructions Indication:Therapeutic drug monitoring Start:26-Aug-2021 Instruction Type:Provider Instructions for Treatment How to Access Health Informa tion Online using Patient Portal and [employer]rd [employer] Apps Indication:Therapeutic drug monitoring Start:26-Aug-2021 Instruction Type:Patient Education Patient Instructions Indication:BMI 30.0-30.9,adult Start:28-Jun-2021 Instruction Type:Provider Instructions for Treatment How to Access Health Informa tion Online using Patient Portal and [employer]rd [employer] Apps Indication:BMI 30.0-30.9,adult Start:28-Jun-2021 Instruction Type:Patient Education Patient Instructions Indication:ADD (attention deficit disorder) Start:20-Apr-2021 Instruction Type:Provider Instructions for Treatment How to Access Health Informa tion Online using Patient Portal and [employer] Apps Indication:ADD (attention deficit disorder) Start:20-Apr-2021 Instruction Type:Patient Education Patient Instructions Indication:Nonsmoker Start:16-Mar-2021 Instruction Type:Provider Instructions for Treatment How to Access Health Informa tion Online using Patient Portal and [employer]rd [employer] Apps Indication:Nonsmoker Start:16-Mar-2021 Instruction Type:Patient Education Patient Instructions Indication:Nonsmoker Start:01-Mar-2021 Instruction Type:Provider Instructions for Treatment How to Access Health Informa tion Online using Patient Portal and [employer]rd [employer] Apps Indication:Nonsmoker Start:01-Mar-2021 Instruction Type:Patient Education How to access health informa tion online Indication:BMI 28.0-28.9,adult Start:03-Mar-2020 Instruction Type:Patient Education How to access health informa tion online - Detail Indication:BMI 28.0-28.9,adult Start:03-Mar-2020 Instruction Type:Patient Education Patient Instructions Indication:BMI 28.0-28.9,adult Start:03-Mar-2020 Instruction Type:Provider Instructions for Treatment How to access health informa tion online Indication:Nonsmoker Start:15-Oct-2019 Instruction Type:Patient Education How to access health informa tion online - Detail Indication:Nonsmoker Start:15-Oct-2019 Instruction Type:Patient Education Patient Instructions Indication:Nonsmoker Start:15-Oct-2019 Instruction Type:Provider Instructions for Treatment How to access health informa tion online Indication:Nonsmoker Start:17-Apr-2019 Instruction Type:Patient Education How to access health informa tion online - Detail Indication:Nonsmoker Start:17-Apr-2019 Instruction Type:Patient Education Patient Instructions Indication:Nonsmoker Start:17-Apr-2019 Instruction Type:Provider Instructions for Treatment How to access health informa tion online Indication:BMI 30.0-30.9,adult Start:01-Jan-2018 Instruction Type:Patient Education Patient Instructions Indication:BMI 30.0-30.9,adult Start:01-Jan-2018 Instruction Type:Provider Instructions for Treatment How to access health informa tion online Indication:Paronychia of finger of left hand Start:22-Sep-2017 Instruction Type:Patient Education How to access health informa tion online - Detail Indication:Paronychia of finger of left hand Start:22-Sep-2017 Instruction Type:Patient Education Patient Instructions Indication:Paronychia of finger of left hand Start:22-Sep-2017 Instruction Type:Provider Instructions for Treatment How to access health informa tion online Indication:Impaired fasting glucose Start:31-May-2017 Instruction Type:Patient Education How to access health informa tion online - Detail Indication:Impaired fasting glucose Start:31-May-2017 Instruction Type:Patient Education Patient Instructions Indication:Impaired fasting glucose Start:31-May-2017 Instruction Type:Provider Instructions for Treatment How to access health informa tion online Indication:ADD (attention deficit disorder) Start:27-Jul-2016 Instruction Type:Patient Education How to access health informa tion online - Detail Indication:ADD (attention deficit disorder) Start:27-Jul-2016 Instruction Type:Patient Education Patient Instructions Indication:ADD (attention deficit disorder) Start:27-Jul-2016 Instruction Type:Provider Instructions for Treatment How to access health informa tion online Indication:ADD (attention deficit disorder) Start:21-Apr-2016 Instruction Type:Patient Education How to access health informa tion online - Detail Indication:ADD (attention deficit disorder) Start:21-Apr-2016 Instruction Type:Patient Education Patient Instructions Indication:ADD (attention deficit disorder) Start:21-Apr-2016 Instruction Type:Provider Instructions for Treatment How to access health informa tion online Indication:Hypertension, benign Start:02-Dec-2015 Instruction Type:Patient Education How to access health informa tion online - Detail Indication:Hypertension, benign Start:02-Dec-2015 Instruction Type:Patient Education Patient Instructions Indication:Hypertension, benign Start:02-Dec-2015 Instruction Type:Provider Instructions for Treatment [facility]; [facility] Work Phone: Instructions* Name Dates Details How to Access Health Informa tion Online using Patient Portal and [employer] Apps Indication:BMI 30.0-30.9,adult Start:14-Dec-2022 Instruction Type:Patient Education Patient Instructions Indication:BMI 30.0-30.9,adult Start:14-Dec-2022 Instruction Type:Provider Instructions for Treatment Patient Instructions Indication:BMI 30.0-30.9,adult Start:24-Nov-2022 Instruction Type:Provider Instructions for Treatment How to Access Health Informa tion Online using Patient Portal and [employer]rd [employer] Apps Indication:BMI 30.0-30.9,adult Start:24-Nov-2022 Instruction Type:Patient Education Patient Instructions Indication:Nonsmoker Start:08-Feb-2022 Instruction Type:Provider Instructions for Treatment How to Access Health Informa tion Online using Patient Portal and [employer] Apps Indication:Nonsmoker Start:08-Feb-2022 Instruction Type:Patient Education Patient Instructions Indication:Therapeutic drug monitoring Start:26-Aug-2021 Instruction Type:Provider Instructions for Treatment How to Access Health Informa tion Online using Patient Portal and [employer] Apps Indication:Therapeutic drug monitoring Start:26-Aug-2021 Instruction Type:Patient Education Patient Instructions Indication:BMI 30.0-30.9,adult Start:28-Jun-2021 Instruction Type:Provider Instructions for Treatment How to Access Health Informa tion Online using Patient Portal and [employer] Apps Indication:BMI 30.0-30.9,adult Start:28-Jun-2021 Instruction Type:Patient Education Patient Instructions Indication:ADD (attention deficit disorder) Start:20-Apr-2021 Instruction Type:Provider Instructions for Treatment How to Access Health Informa tion Online using Patient Portal and [employer] Apps Indication:ADD (attention deficit disorder) Start:20-Apr-2021 Instruction Type:Patient Education Patient Instructions Indication:Nonsmoker Start:16-Mar-2021 Instruction Type:Provider Instructions for Treatment How to Access Health Informa tion Online using Patient Portal and [employer] Apps Indication:Nonsmoker Start:16-Mar-2021 Instruction Type:Patient Education Patient Instructions Indication:Nonsmoker Start:01-Mar-2021 Instruction Type:Provider Instructions for Treatment How to Access Health Informa tion Online using Patient Portal and [employer] Apps Indication:Nonsmoker Start:01-Mar-2021 Instruction Type:Patient Education How to access health informa tion online Indication:BMI 28.0-28.9,adult Start:03-Mar-2020 Instruction Type:Patient Education How to access health informa tion online - Detail Indication:BMI 28.0-28.9,adult Start:03-Mar-2020 Instruction Type:Patient Education Patient Instructions Indication:BMI 28.0-28.9,adult Start:03-Mar-2020 Instruction Type:Provider Instructions for Treatment How to access health informa tion online Indication:Nonsmoker Start:15-Oct-2019 Instruction Type:Patient Education How to access health informa tion online - Detail Indication:Nonsmoker Start:15-Oct-2019 Instruction Type:Patient Education Patient Instructions Indication:Nonsmoker Start:15-Oct-2019 Instruction Type:Provider Instructions for Treatment How to access health informa tion online Indication:Nonsmoker Start:17-Apr-2019 Instruction Type:Patient Education How to access health informa tion online - Detail Indication:Nonsmoker Start:17-Apr-2019 Instruction Type:Patient Education Patient Instructions Indication:Nonsmoker Start:17-Apr-2019 Instruction Type:Provider Instructions for Treatment How to access health informa tion online Indication:BMI 30.0-30.9,adult Start:01-Jan-2018 Instruction Type:Patient Education Patient Instructions Indication:BMI 30.0-30.9,adult Start:01-Jan-2018 Instruction Type:Provider Instructions for Treatment How to access health informa tion online Indication:Paronychia of finger of left hand Start:22-Sep-2017 Instruction Type:Patient Education How to access health informa tion online - Detail Indication:Paronychia of finger of left hand Start:22-Sep-2017 Instruction Type:Patient Education Patient Instructions Indication:Paronychia of finger of left hand Start:22-Sep-2017 Instruction Type:Provider Instructions for Treatment How to access health informa tion online Indication:Impaired fasting glucose Start:31-May-2017 Instruction Type:Patient Education How to access health informa tion online - Detail Indication:Impaired fasting glucose Start:31-May-2017 Instruction Type:Patient Education Patient Instructions Indication:Impaired fasting glucose Start:31-May-2017 Instruction Type:Provider Instructions for Treatment How to access health informa tion online Indication:ADD (attention deficit disorder) Start:27-Jul-2016 Instruction Type:Patient Education How to access health informa tion online - Detail Indication:ADD (attention deficit disorder) Start:27-Jul-2016 Instruction Type:Patient Education Patient Instructions Indication:ADD (attention deficit disorder) Start:27-Jul-2016 Instruction Type:Provider Instructions for Treatment How to access health informa tion online Indication:ADD (attention deficit disorder) Start:21-Apr-2016 Instruction Type:Patient Education How to access health informa tion online - Detail Indication:ADD (attention deficit disorder) Start:21-Apr-2016 Instruction Type:Patient Education Patient Instructions Indication:ADD (attention deficit disorder) Start:21-Apr-2016 Instruction Type:Provider Instructions for Treatment How to access health informa tion online Indication:Hypertension, benign Start:02-Dec-2015 Instruction Type:Patient Education How to access health informa tion online - Detail Indication:Hypertension, benign Start:02-Dec-2015 Instruction Type:Patient Education Patient Instructions Indication:Hypertension, benign Start:02-Dec-2015 Instruction Type:Provider Instructions for Treatment [facility]; [facility] Work Phone: Instructions* Name Dates Details How to Access Health Informa tion Online using Patient Portal and [employer]rd [employer] Apps Indication:BMI 30.0-30.9,adult Start:14-Dec-2022 Instruction Type:Patient Education Patient Instructions Indication:BMI 30.0-30.9,adult Start:14-Dec-2022 Instruction Type:Provider Instructions for Treatment Patient Instructions Indication:BMI 30.0-30.9,adult Start:24-Nov-2022 Instruction Type:Provider Instructions for Treatment How to Access Health Informa tion Online using Patient Portal and [employer]rd [employer] Apps Indication:BMI 30.0-30.9,adult Start:24-Nov-2022 Instruction Type:Patient Education Patient Instructions Indication:Nonsmoker Start:08-Feb-2022 Instruction Type:Provider Instructions for Treatment How to Access Health Informa tion Online using Patient Portal and [employer]rd [employer] Apps Indication:Nonsmoker Start:08-Feb-2022 Instruction Type:Patient Education Patient Instructions Indication:Therapeutic drug monitoring Start:26-Aug-2021 Instruction Type:Provider Instructions for Treatment How to Access Health Informa tion Online using Patient Portal and [employer]rd [employer] Apps Indication:Therapeutic drug monitoring Start:26-Aug-2021 Instruction Type:Patient Education Patient Instructions Indication:BMI 30.0-30.9,adult Start:28-Jun-2021 Instruction Type:Provider Instructions for Treatment How to Access Health Informa tion Online using Patient Portal and [employer] Apps Indication:BMI 30.0-30.9,adult Start:28-Jun-2021 Instruction Type:Patient Education Patient Instructions Indication:ADD (attention deficit disorder) Start:20-Apr-2021 Instruction Type:Provider Instructions for Treatment How to Access Health Informa tion Online using Patient Portal and [employer] Apps Indication:ADD (attention deficit disorder) Start:20-Apr-2021 Instruction Type:Patient Education Patient Instructions Indication:Nonsmoker Start:16-Mar-2021 Instruction Type:Provider Instructions for Treatment How to Access Health Informa tion Online using Patient Portal and [employer] Apps Indication:Nonsmoker Start:16-Mar-2021 Instruction Type:Patient Education Patient Instructions Indication:Nonsmoker Start:01-Mar-2021 Instruction Type:Provider Instructions for Treatment How to Access Health Informa tion Online using Patient Portal and [employer]rd [employer] Apps Indication:Nonsmoker Start:01-Mar-2021 Instruction Type:Patient Education How to access health informa tion online Indication:BMI 28.0-28.9,adult Start:03-Mar-2020 Instruction Type:Patient Education How to access health informa tion online - Detail Indication:BMI 28.0-28.9,adult Start:03-Mar-2020 Instruction Type:Patient Education Patient Instructions Indication:BMI 28.0-28.9,adult Start:03-Mar-2020 Instruction Type:Provider Instructions for Treatment How to access health informa tion online Indication:Nonsmoker Start:15-Oct-2019 Instruction Type:Patient Education How to access health informa tion online - Detail Indication:Nonsmoker Start:15-Oct-2019 Instruction Type:Patient Education Patient Instructions Indication:Nonsmoker Start:15-Oct-2019 Instruction Type:Provider Instructions for Treatment How to access health informa tion online Indication:Nonsmoker Start:17-Apr-2019 Instruction Type:Patient Education How to access health informa tion online - Detail Indication:Nonsmoker Start:17-Apr-2019 Instruction Type:Patient Education Patient Instructions Indication:Nonsmoker Start:17-Apr-2019 Instruction Type:Provider Instructions for Treatment How to access health informa tion online Indication:BMI 30.0-30.9,adult Start:01-Jan-2018 Instruction Type:Patient Education Patient Instructions Indication:BMI 30.0-30.9,adult Start:01-Jan-2018 Instruction Type:Provider Instructions for Treatment How to access health informa tion online Indication:Paronychia of finger of left hand Start:22-Sep-2017 Instruction Type:Patient Education How to access health informa tion online - Detail Indication:Paronychia of finger of left hand Start:22-Sep-2017 Instruction Type:Patient Education Patient Instructions Indication:Paronychia of finger of left hand Start:22-Sep-2017 Instruction Type:Provider Instructions for Treatment How to access health informa tion online Indication:Impaired fasting glucose Start:31-May-2017 Instruction Type:Patient Education How to access health informa tion online - Detail Indication:Impaired fasting glucose Start:31-May-2017 Instruction Type:Patient Education Patient Instructions Indication:Impaired fasting glucose Start:31-May-2017 Instruction Type:Provider Instructions for Treatment How to access health informa tion online Indication:ADD (attention deficit disorder) Start:27-Jul-2016 Instruction Type:Patient Education How to access health informa tion online - Detail Indication:ADD (attention deficit disorder) Start:27-Jul-2016 Instruction Type:Patient Education Patient Instructions Indication:ADD (attention deficit disorder) Start:27-Jul-2016 Instruction Type:Provider Instructions for Treatment How to access health informa tion online Indication:ADD (attention deficit disorder) Start:21-Apr-2016 Instruction Type:Patient Education How to access health informa tion online - Detail Indication:ADD (attention deficit disorder) Start:21-Apr-2016 Instruction Type:Patient Education Patient Instructions Indication:ADD (attention deficit disorder) Start:21-Apr-2016 Instruction Type:Provider Instructions for Treatment How to access health informa tion online Indication:Hypertension, benign Start:02-Dec-2015 Instruction Type:Patient Education How to access health informa tion online - Detail Indication:Hypertension, benign Start:02-Dec-2015 Instruction Type:Patient Education Patient Instructions Indication:Hypertension, benign Start:02-Dec-2015 Instruction Type:Provider Instructions for Treatment [facility]; [facility] Work Phone: Instructions* Name Dates Details How to Access Health Informa tion Online using Patient Portal and [employer] Apps Indication:ADD (attention deficit disorder) Start:20-Feb-2023 Instruction Type:Patient Education Patient Instructions Indication:ADD (attention deficit disorder) Start:20-Feb-2023 Instruction Type:Provider Instructions for Treatment How to Access Health Informa tion Online using Patient Portal and [employer]rd [employer] Apps Indication:BMI 30.0-30.9,adult Start:14-Dec-2022 Instruction Type:Patient Education Patient Instructions Indication:BMI 30.0-30.9,adult Start:14-Dec-2022 Instruction Type:Provider Instructions for Treatment Patient Instructions Indication:BMI 30.0-30.9,adult Start:24-Nov-2022 Instruction Type:Provider Instructions for Treatment How to Access Health Informa tion Online using Patient Portal and [employer]rd [employer] Apps Indication:BMI 30.0-30.9,adult Start:24-Nov-2022 Instruction Type:Patient Education Patient Instructions Indication:Nonsmoker Start:08-Feb-2022 Instruction Type:Provider Instructions for Treatment How to Access Health Informa tion Online using Patient Portal and [employer]rd [employer] Apps Indication:Nonsmoker Start:08-Feb-2022 Instruction Type:Patient Education Patient Instructions Indication:Therapeutic drug monitoring Start:26-Aug-2021 Instruction Type:Provider Instructions for Treatment How to Access Health Informa tion Online using Patient Portal and [employer]rd [employer] Apps Indication:Therapeutic drug monitoring Start:26-Aug-2021 Instruction Type:Patient Education Patient Instructions Indication:BMI 30.0-30.9,adult Start:28-Jun-2021 Instruction Type:Provider Instructions for Treatment How to Access Health Informa tion Online using Patient Portal and [employer]rd [employer] Indication:BMI 30.0-30.9,adult Start:28-Jun-2021 Instruction Type:Patient Education Patient Instructions Indication:ADD (attention deficit disorder) Start:20-Apr-2021 Instruction Type:Provider Instructions for Treatment How to Access Health Informa tion Online using Patient Portal and [employer] Apps Indication:ADD (attention deficit disorder) Start:20-Apr-2021 Instruction Type:Patient Education Patient Instructions Indication:Nonsmoker Start:16-Mar-2021 Instruction Type:Provider Instructions for Treatment How to Access Health Informa tion Online using Patient Portal and [employer] Apps Indication:Nonsmoker Start:16-Mar-2021 Instruction Type:Patient Education Patient Instructions Indication:Nonsmoker Start:01-Mar-2021 Instruction Type:Provider Instructions for Treatment How to Access Health Informa tion Online using Patient Portal and [employer] Apps Indication:Nonsmoker Start:01-Mar-2021 Instruction Type:Patient Education How to access health informa tion online Indication:BMI 28.0-28.9,adult Start:03-Mar-2020 Instruction Type:Patient Education How to access health informa tion online - Detail Indication:BMI 28.0-28.9,adult Start:03-Mar-2020 Instruction Type:Patient Education Patient Instructions Indication:BMI 28.0-28.9,adult Start:03-Mar-2020 Instruction Type:Provider Instructions for Treatment How to access health informa tion online Indication:Nonsmoker Start:15-Oct-2019 Instruction Type:Patient Education How to access health informa tion online - Detail Indication:Nonsmoker Start:15-Oct-2019 Instruction Type:Patient Education Patient Instructions Indication:Nonsmoker Start:15-Oct-2019 Instruction Type:Provider Instructions for Treatment How to access health informa tion online Indication:Nonsmoker Start:17-Apr-2019 Instruction Type:Patient Education How to access health informa tion online - Detail Indication:Nonsmoker Start:17-Apr-2019 Instruction Type:Patient Education Patient Instructions Indication:Nonsmoker Start:17-Apr-2019 Instruction Type:Provider Instructions for Treatment How to access health informa tion online Indication:BMI 30.0-30.9,adult Start:01-Jan-2018 Instruction Type:Patient Education Patient Instructions Indication:BMI 30.0-30.9,adult Start:01-Jan-2018 Instruction Type:Provider Instructions for Treatment How to access health informa tion online Indication:Paronychia of finger of left hand Start:22-Sep-2017 Instruction Type:Patient Education How to access health informa tion online - Detail Indication:Paronychia of finger of left hand Start:22-Sep-2017 Instruction Type:Patient Education Patient Instructions Indication:Paronychia of finger of left hand Start:22-Sep-2017 Instruction Type:Provider Instructions for Treatment How to access health informa tion online Indication:Impaired fasting glucose Start:31-May-2017 Instruction Type:Patient Education How to access health informa tion online - Detail Indication:Impaired fasting glucose Start:31-May-2017 Instruction Type:Patient Education Patient Instructions Indication:Impaired fasting glucose Start:31-May-2017 Instruction Type:Provider Instructions for Treatment How to access health informa tion online Indication:ADD (attention deficit disorder) Start:27-Jul-2016 Instruction Type:Patient Education How to access health informa tion online - Detail Indication:ADD (attention deficit disorder) Start:27-Jul-2016 Instruction Type:Patient Education Patient Instructions Indication:ADD (attention deficit disorder) Start:27-Jul-2016 Instruction Type:Provider Instructions for Treatment How to access health informa tion online Indication:ADD (attention deficit disorder) Start:21-Apr-2016 Instruction Type:Patient Education How to access health informa tion online - Detail Indication:ADD (attention deficit disorder) Start:21-Apr-2016 Instruction Type:Patient Education Patient Instructions Indication:ADD (attention deficit disorder) Start:21-Apr-2016 Instruction Type:Provider Instructions for Treatment How to access health informa tion online Indication:Hypertension, benign Start:02-Dec-2015 Instruction Type:Patient Education How to access health informa tion online - Detail Indication:Hypertension, benign Start:02-Dec-2015 Instruction Type:Patient Education Patient Instructions Indication:Hypertension, benign Start:02-Dec-2015 Instruction Type:Provider Instructions for Treatment [facility]; [facility] Work Phone: Instructions* Name Dates Details Patient Instructions Indication:Nonsmoker Start:22-Feb-2023 Instruction Type:Provider Instructions for Treatment How to Access Health Informa tion Online using Patient Portal and [employer]rd [employer] Apps Indication:Nonsmoker Start:22-Feb-2023 Instruction Type:Patient Education How to Access Health Informa tion Online using Patient Portal and [employer]rd [employer] Apps Indication:ADD (attention deficit disorder) Start:20-Feb-2023 Instruction Type:Patient Education Patient Instructions Indication:ADD (attention deficit disorder) Start:20-Feb-2023 Instruction Type:Provider Instructions for Treatment How to Access Health Informa tion Online using Patient Portal and [employer]rd [employer] Apps Indication:BMI 30.0-30.9,adult Start:14-Dec-2022 Instruction Type:Patient Education Patient Instructions Indication:BMI 30.0-30.9,adult Start:14-Dec-2022 Instruction Type:Provider Instructions for Treatment Patient Instructions Indication:BMI 30.0-30.9,adult Start:24-Nov-2022 Instruction Type:Provider Instructions for Treatment How to Access Health Informa tion Online using Patient Portal and [employer]rd [employer] Apps Indication:BMI 30.0-30.9,adult Start:24-Nov-2022 Instruction Type:Patient Education Patient Instructions Indication:Nonsmoker Start:08-Feb-2022 Instruction Type:Provider Instructions for Treatment How to Access Health Informa tion Online using Patient Portal and [employer]rd [employer] Apps Indication:Nonsmoker Start:08-Feb-2022 Instruction Type:Patient Education Patient Instructions Indication:Therapeutic drug monitoring Start:26-Aug-2021 Instruction Type:Provider Instructions for Treatment How to Access Health Informa tion Online using Patient Portal and [employer]rd [employer] Apps Indication:Therapeutic drug monitoring Start:26-Aug-2021 Instruction Type:Patient Education Patient Instructions Indication:BMI 30.0-30.9,adult Start:28-Jun-2021 Instruction Type:Provider Instructions for Treatment How to Access Health Informa tion Online using Patient Portal and [employer]rd [employer] Apps Indication:BMI 30.0-30.9,adult Start:28-Jun-2021 Instruction Type:Patient Education Patient Instructions Indication:ADD (attention deficit disorder) Start:20-Apr-2021 Instruction Type:Provider Instructions for Treatment How to Access Health Informa tion Online using Patient Portal and [employer]rd [employer] Apps Indication:ADD (attention deficit disorder) Start:20-Apr-2021 Instruction Type:Patient Education Patient Instructions Indication:Nonsmoker Start:16-Mar-2021 Instruction Type:Provider Instructions for Treatment How to Access Health Informa tion Online using Patient Portal and [employer]rd [employer] Apps Indication:Nonsmoker Start:16-Mar-2021 Instruction Type:Patient Education Patient Instructions Indication:Nonsmoker Start:01-Mar-2021 Instruction Type:Provider Instructions for Treatment How to Access Health Informa tion Online using Patient Portal and [employer]rd [employer] Apps Indication:Nonsmoker Start:01-Mar-2021 Instruction Type:Patient Education How to access health informa tion online Indication:BMI 28.0-28.9,adult Start:03-Mar-2020 Instruction Type:Patient Education How to access health informa tion online - Detail Indication:BMI 28.0-28.9,adult Start:03-Mar-2020 Instruction Type:Patient Education Patient Instructions Indication:BMI 28.0-28.9,adult Start:03-Mar-2020 Instruction Type:Provider Instructions for Treatment How to access health informa tion online Indication:Nonsmoker Start:15-Oct-2019 Instruction Type:Patient Education How to access health informa tion online - Detail Indication:Nonsmoker Start:15-Oct-2019 Instruction Type:Patient Education Patient Instructions Indication:Nonsmoker Start:15-Oct-2019 Instruction Type:Provider Instructions for Treatment How to access health informa tion online Indication:Nonsmoker Start:17-Apr-2019 Instruction Type:Patient Education How to access health informa tion online - Detail Indication:Nonsmoker Start:17-Apr-2019 Instruction Type:Patient Education Patient Instructions Indication:Nonsmoker Start:17-Apr-2019 Instruction Type:Provider Instructions for Treatment How to access health informa tion online Indication:BMI 30.0-30.9,adult Start:01-Jan-2018 Instruction Type:Patient Education Patient Instructions Indication:BMI 30.0-30.9,adult Start:01-Jan-2018 Instruction Type:Provider Instructions for Treatment How to access health informa tion online Indication:Paronychia of finger of left hand Start:22-Sep-2017 Instruction Type:Patient Education How to access health informa tion online - Detail Indication:Paronychia of finger of left hand Start:22-Sep-2017 Instruction Type:Patient Education Patient Instructions Indication:Paronychia of finger of left hand Start:22-Sep-2017 Instruction Type:Provider Instructions for Treatment How to access health informa tion online Indication:Impaired fasting glucose Start:31-May-2017 Instruction Type:Patient Education How to access health informa tion online - Detail Indication:Impaired fasting glucose Start:31-May-2017 Instruction Type:Patient Education Patient Instructions Indication:Impaired fasting glucose Start:31-May-2017 Instruction Type:Provider Instructions for Treatment How to access health informa tion online Indication:ADD (attention deficit disorder) Start:27-Jul-2016 Instruction Type:Patient Education How to access health informa tion online - Detail Indication:ADD (attention deficit disorder) Start:27-Jul-2016 Instruction Type:Patient Education Patient Instructions Indication:ADD (attention deficit disorder) Start:27-Jul-2016 Instruction Type:Provider Instructions for Treatment How to access health informa tion online Indication:ADD (attention deficit disorder) Start:21-Apr-2016 Instruction Type:Patient Education How to access health informa tion online - Detail Indication:ADD (attention deficit disorder) Start:21-Apr-2016 Instruction Type:Patient Education Patient Instructions Indication:ADD (attention deficit disorder) Start:21-Apr-2016 Instruction Type:Provider Instructions for Treatment How to access health informa tion online Indication:Hypertension, benign Start:02-Dec-2015 Instruction Type:Patient Education How to access health informa tion online - Detail Indication:Hypertension, benign Start:02-Dec-2015 Instruction Type:Patient Education Patient Instructions Indication:Hypertension, benign Start:02-Dec-2015 Instruction Type:Provider Instructions for Treatment [facility]; [facility] Work Phone: Instructions* Name Dates Details Patient Instructions Indication:Nonsmoker Start:22-Feb-2023 Instruction Type:Provider Instructions for Treatment How to Access Health Informa tion Online using Patient Portal and [employer]rd [employer] Apps Indication:Nonsmoker Start:22-Feb-2023 Instruction Type:Patient Education How to Access Health Informa tion Online using Patient Portal and [employer]rd [employer] Apps Indication:ADD (attention deficit disorder) Start:20-Feb-2023 Instruction Type:Patient Education Patient Instructions Indication:ADD (attention deficit disorder) Start:20-Feb-2023 Instruction Type:Provider Instructions for Treatment How to Access Health Informa tion Online using Patient Portal and [employer]rd [employer] Apps Indication:BMI 30.0-30.9,adult Start:14-Dec-2022 Instruction Type:Patient Education Patient Instructions Indication:BMI 30.0-30.9,adult Start:14-Dec-2022 Instruction Type:Provider Instructions for Treatment Patient Instructions Indication:BMI 30.0-30.9,adult Start:24-Nov-2022 Instruction Type:Provider Instructions for Treatment How to Access Health Informa tion Online using Patient Portal and [employer]rd [employer] Apps Indication:BMI 30.0-30.9,adult Start:24-Nov-2022 Instruction Type:Patient Education Patient Instructions Indication:Nonsmoker Start:08-Feb-2022 Instruction Type:Provider Instructions for Treatment How to Access Health Informa tion Online using Patient Portal and [employer]rd [employer] Apps Indication:Nonsmoker Start:08-Feb-2022 Instruction Type:Patient Education Patient Instructions Indication:Therapeutic drug monitoring Start:26-Aug-2021 Instruction Type:Provider Instructions for Treatment How to Access Health Informa tion Online using Patient Portal and [employer]rd [employer] Apps Indication:Therapeutic drug monitoring Start:26-Aug-2021 Instruction Type:Patient Education Patient Instructions Indication:BMI 30.0-30.9,adult Start:28-Jun-2021 Instruction Type:Provider Instructions for Treatment How to Access Health Informa tion Online using Patient Portal and [employer]rd [employer] Apps Indication:BMI 30.0-30.9,adult Start:28-Jun-2021 Instruction Type:Patient Education Patient Instructions Indication:ADD (attention deficit disorder) Start:20-Apr-2021 Instruction Type:Provider Instructions for Treatment How to Access Health Informa tion Online using Patient Portal and [employer]rd [employer] Apps Indication:ADD (attention deficit disorder) Start:20-Apr-2021 Instruction Type:Patient Education Patient Instructions Indication:Nonsmoker Start:16-Mar-2021 Instruction Type:Provider Instructions for Treatment How to Access Health Informa tion Online using Patient Portal and [employer]rd [employer] Apps Indication:Nonsmoker Start:16-Mar-2021 Instruction Type:Patient Education Patient Instructions Indication:Nonsmoker Start:01-Mar-2021 Instruction Type:Provider Instructions for Treatment How to Access Health Informa tion Online using Patient Portal and [employer]rd [employer] Apps Indication:Nonsmoker Start:01-Mar-2021 Instruction Type:Patient Education How to access health informa tion online Indication:BMI 28.0-28.9,adult Start:03-Mar-2020 Instruction Type:Patient Education How to access health informa tion online - Detail Indication:BMI 28.0-28.9,adult Start:03-Mar-2020 Instruction Type:Patient Education Patient Instructions Indication:BMI 28.0-28.9,adult Start:03-Mar-2020 Instruction Type:Provider Instructions for Treatment How to access health informa tion online Indication:Nonsmoker Start:15-Oct-2019 Instruction Type:Patient Education How to access health informa tion online - Detail Indication:Nonsmoker Start:15-Oct-2019 Instruction Type:Patient Education Patient Instructions Indication:Nonsmoker Start:15-Oct-2019 Instruction Type:Provider Instructions for Treatment How to access health informa tion online Indication:Nonsmoker Start:17-Apr-2019 Instruction Type:Patient Education How to access health informa tion online - Detail Indication:Nonsmoker Start:17-Apr-2019 Instruction Type:Patient Education Patient Instructions Indication:Nonsmoker Start:17-Apr-2019 Instruction Type:Provider Instructions for Treatment How to access health informa tion online Indication:BMI 30.0-30.9,adult Start:01-Jan-2018 Instruction Type:Patient Education Patient Instructions Indication:BMI 30.0-30.9,adult Start:01-Jan-2018 Instruction Type:Provider Instructions for Treatment How to access health informa tion online Indication:Paronychia of finger of left hand Start:22-Sep-2017 Instruction Type:Patient Education How to access health informa tion online - Detail Indication:Paronychia of finger of left hand Start:22-Sep-2017 Instruction Type:Patient Education Patient Instructions Indication:Paronychia of finger of left hand Start:22-Sep-2017 Instruction Type:Provider Instructions for Treatment How to access health informa tion online Indication:Impaired fasting glucose Start:31-May-2017 Instruction Type:Patient Education How to access health informa tion online - Detail Indication:Impaired fasting glucose Start:31-May-2017 Instruction Type:Patient Education Patient Instructions Indication:Impaired fasting glucose Start:31-May-2017 Instruction Type:Provider Instructions for Treatment How to access health informa tion online Indication:ADD (attention deficit disorder) Start:27-Jul-2016 Instruction Type:Patient Education How to access health informa tion online - Detail Indication:ADD (attention deficit disorder) Start:27-Jul-2016 Instruction Type:Patient Education Patient Instructions Indication:ADD (attention deficit disorder) Start:27-Jul-2016 Instruction Type:Provider Instructions for Treatment How to access health informa tion online Indication:ADD (attention deficit disorder) Start:21-Apr-2016 Instruction Type:Patient Education How to access health informa tion online - Detail Indication:ADD (attention deficit disorder) Start:21-Apr-2016 Instruction Type:Patient Education Patient Instructions Indication:ADD (attention deficit disorder) Start:21-Apr-2016 Instruction Type:Provider Instructions for Treatment How to access health informa tion online Indication:Hypertension, benign Start:02-Dec-2015 Instruction Type:Patient Education How to access health informa tion online - Detail Indication:Hypertension, benign Start:02-Dec-2015 Instruction Type:Patient Education Patient Instructions Indication:Hypertension, benign Start:02-Dec-2015 Instruction Type:Provider Instructions for Treatment [facility]; [facility] Work Phone: Instructions* Name Dates Details Patient Instructions Indication:Nonsmoker Start:22-Feb-2023 Instruction Type:Provider Instructions for Treatment How to Access Health Informa tion Online using Patient Portal and [employer]rd [employer] Apps Indication:Nonsmoker Start:22-Feb-2023 Instruction Type:Patient Education How to Access Health Informa tion Online using Patient Portal and [employer]rd [employer] Apps Indication:ADD (attention deficit disorder) Start:20-Feb-2023 Instruction Type:Patient Education Patient Instructions Indication:ADD (attention deficit disorder) Start:20-Feb-2023 Instruction Type:Provider Instructions for Treatment How to Access Health Informa tion Online using Patient Portal and [employer]rd [employer] Apps Indication:BMI 30.0-30.9,adult Start:14-Dec-2022 Instruction Type:Patient Education Patient Instructions Indication:BMI 30.0-30.9,adult Start:14-Dec-2022 Instruction Type:Provider Instructions for Treatment Patient Instructions Indication:BMI 30.0-30.9,adult Start:24-Nov-2022 Instruction Type:Provider Instructions for Treatment How to Access Health Informa tion Online using Patient Portal and [employer]rd [employer] Apps Indication:BMI 30.0-30.9,adult Start:24-Nov-2022 Instruction Type:Patient Education Patient Instructions Indication:Nonsmoker Start:08-Feb-2022 Instruction Type:Provider Instructions for Treatment How to Access Health Informa tion Online using Patient Portal and [employer]rd [employer] Apps Indication:Nonsmoker Start:08-Feb-2022 Instruction Type:Patient Education Patient Instructions Indication:Therapeutic drug monitoring Start:26-Aug-2021 Instruction Type:Provider Instructions for Treatment How to Access Health Informa tion Online using Patient Portal and [employer]rd [employer] Apps Indication:Therapeutic drug monitoring Start:26-Aug-2021 Instruction Type:Patient Education Patient Instructions Indication:BMI 30.0-30.9,adult Start:28-Jun-2021 Instruction Type:Provider Instructions for Treatment How to Access Health Informa tion Online using Patient Portal and [employer]rd [employer] Apps Indication:BMI 30.0-30.9,adult Start:28-Jun-2021 Instruction Type:Patient Education Patient Instructions Indication:ADD (attention deficit disorder) Start:20-Apr-2021 Instruction Type:Provider Instructions for Treatment How to Access Health Informa tion Online using Patient Portal and [employer]rd [employer] Apps Indication:ADD (attention deficit disorder) Start:20-Apr-2021 Instruction Type:Patient Education Patient Instructions Indication:Nonsmoker Start:16-Mar-2021 Instruction Type:Provider Instructions for Treatment How to Access Health Informa tion Online using Patient Portal and [employer]rd [employer] Apps Indication:Nonsmoker Start:16-Mar-2021 Instruction Type:Patient Education Patient Instructions Indication:Nonsmoker Start:01-Mar-2021 Instruction Type:Provider Instructions for Treatment How to Access Health Informa tion Online using Patient Portal and [employer]rd [employer] Apps Indication:Nonsmoker Start:01-Mar-2021 Instruction Type:Patient Education How to access health informa tion online Indication:BMI 28.0-28.9,adult Start:03-Mar-2020 Instruction Type:Patient Education How to access health informa tion online - Detail Indication:BMI 28.0-28.9,adult Start:03-Mar-2020 Instruction Type:Patient Education Patient Instructions Indication:BMI 28.0-28.9,adult Start:03-Mar-2020 Instruction Type:Provider Instructions for Treatment How to access health informa tion online Indication:Nonsmoker Start:15-Oct-2019 Instruction Type:Patient Education How to access health informa tion online - Detail Indication:Nonsmoker Start:15-Oct-2019 Instruction Type:Patient Education Patient Instructions Indication:Nonsmoker Start:15-Oct-2019 Instruction Type:Provider Instructions for Treatment How to access health informa tion online Indication:Nonsmoker Start:17-Apr-2019 Instruction Type:Patient Education How to access health informa tion online - Detail Indication:Nonsmoker Start:17-Apr-2019 Instruction Type:Patient Education Patient Instructions Indication:Nonsmoker Start:17-Apr-2019 Instruction Type:Provider Instructions for Treatment How to access health informa tion online Indication:BMI 30.0-30.9,adult Start:01-Jan-2018 Instruction Type:Patient Education Patient Instructions Indication:BMI 30.0-30.9,adult Start:01-Jan-2018 Instruction Type:Provider Instructions for Treatment How to access health informa tion online Indication:Paronychia of finger of left hand Start:22-Sep-2017 Instruction Type:Patient Education How to access health informa tion online - Detail Indication:Paronychia of finger of left hand Start:22-Sep-2017 Instruction Type:Patient Education Patient Instructions Indication:Paronychia of finger of left hand Start:22-Sep-2017 Instruction Type:Provider Instructions for Treatment How to access health informa tion online Indication:Impaired fasting glucose Start:31-May-2017 Instruction Type:Patient Education How to access health informa tion online - Detail Indication:Impaired fasting glucose Start:31-May-2017 Instruction Type:Patient Education Patient Instructions Indication:Impaired fasting glucose Start:31-May-2017 Instruction Type:Provider Instructions for Treatment How to access health informa tion online Indication:ADD (attention deficit disorder) Start:27-Jul-2016 Instruction Type:Patient Education How to access health informa tion online - Detail Indication:ADD (attention deficit disorder) Start:27-Jul-2016 Instruction Type:Patient Education Patient Instructions Indication:ADD (attention deficit disorder) Start:27-Jul-2016 Instruction Type:Provider Instructions for Treatment How to access health informa tion online Indication:ADD (attention deficit disorder) Start:21-Apr-2016 Instruction Type:Patient Education How to access health informa tion online - Detail Indication:ADD (attention deficit disorder) Start:21-Apr-2016 Instruction Type:Patient Education Patient Instructions Indication:ADD (attention deficit disorder) Start:21-Apr-2016 Instruction Type:Provider Instructions for Treatment How to access health informa tion online Indication:Hypertension, benign Start:02-Dec-2015 Instruction Type:Patient Education How to access health informa tion online - Detail Indication:Hypertension, benign Start:02-Dec-2015 Instruction Type:Patient Education Patient Instructions Indication:Hypertension, benign Start:02-Dec-2015 Instruction Type:Provider Instructions for Treatment [facility]; [facility] Work Phone: Instructions* Name Dates Details Patient Instructions Indication:Nonsmoker Start:22-Feb-2023 Instruction Type:Provider Instructions for Treatment How to Access Health Informa tion Online using Patient Portal and [employer]rd [employer] Apps Indication:Nonsmoker Start:22-Feb-2023 Instruction Type:Patient Education How to Access Health Informa tion Online using Patient Portal and [employer]rd [employer] Apps Indication:ADD (attention deficit disorder) Start:20-Feb-2023 Instruction Type:Patient Education Patient Instructions Indication:ADD (attention deficit disorder) Start:20-Feb-2023 Instruction Type:Provider Instructions for Treatment How to Access Health Informa tion Online using Patient Portal and [employer]rd [employer] Apps Indication:BMI 30.0-30.9,adult Start:14-Dec-2022 Instruction Type:Patient Education Patient Instructions Indication:BMI 30.0-30.9,adult Start:14-Dec-2022 Instruction Type:Provider Instructions for Treatment Patient Instructions Indication:BMI 30.0-30.9,adult Start:24-Nov-2022 Instruction Type:Provider Instructions for Treatment How to Access Health Informa tion Online using Patient Portal and [employer]rd [employer] Apps Indication:BMI 30.0-30.9,adult Start:24-Nov-2022 Instruction Type:Patient Education Patient Instructions Indication:Nonsmoker Start:08-Feb-2022 Instruction Type:Provider Instructions for Treatment How to Access Health Informa tion Online using Patient Portal and [employer]rd [employer] Apps Indication:Nonsmoker Start:08-Feb-2022 Instruction Type:Patient Education Patient Instructions Indication:Therapeutic drug monitoring Start:26-Aug-2021 Instruction Type:Provider Instructions for Treatment How to Access Health Informa tion Online using Patient Portal and [employer]rd [employer] Apps Indication:Therapeutic drug monitoring Start:26-Aug-2021 Instruction Type:Patient Education Patient Instructions Indication:BMI 30.0-30.9,adult Start:28-Jun-2021 Instruction Type:Provider Instructions for Treatment How to Access Health Informa tion Online using Patient Portal and [employer]rd [employer] Apps Indication:BMI 30.0-30.9,adult Start:28-Jun-2021 Instruction Type:Patient Education Patient Instructions Indication:ADD (attention deficit disorder) Start:20-Apr-2021 Instruction Type:Provider Instructions for Treatment How to Access Health Informa tion Online using Patient Portal and [employer]rd [employer] Apps Indication:ADD (attention deficit disorder) Start:20-Apr-2021 Instruction Type:Patient Education Patient Instructions Indication:Nonsmoker Start:16-Mar-2021 Instruction Type:Provider Instructions for Treatment How to Access Health Informa tion Online using Patient Portal and [employer] Indication:Nonsmoker Start:16-Mar-2021 Instruction Type:Patient Education Patient Instructions Indication:Nonsmoker Start:01-Mar-2021 Instruction Type:Provider Instructions for Treatment How to Access Health Informa tion Online using Patient Portal and [employer] Apps Indication:Nonsmoker Start:01-Mar-2021 Instruction Type:Patient Education How to access health informa tion online Indication:BMI 28.0-28.9,adult Start:03-Mar-2020 Instruction Type:Patient Education How to access health informa tion online - Detail Indication:BMI 28.0-28.9,adult Start:03-Mar-2020 Instruction Type:Patient Education Patient Instructions Indication:BMI 28.0-28.9,adult Start:03-Mar-2020 Instruction Type:Provider Instructions for Treatment How to access health informa tion online Indication:Nonsmoker Start:15-Oct-2019 Instruction Type:Patient Education How to access health informa tion online - Detail Indication:Nonsmoker Start:15-Oct-2019 Instruction Type:Patient Education Patient Instructions Indication:Nonsmoker Start:15-Oct-2019 Instruction Type:Provider Instructions for Treatment How to access health informa tion online Indication:Nonsmoker Start:17-Apr-2019 Instruction Type:Patient Education How to access health informa tion online - Detail Indication:Nonsmoker Start:17-Apr-2019 Instruction Type:Patient Education Patient Instructions Indication:Nonsmoker Start:17-Apr-2019 Instruction Type:Provider Instructions for Treatment How to access health informa tion online Indication:BMI 30.0-30.9,adult Start:01-Jan-2018 Instruction Type:Patient Education Patient Instructions Indication:BMI 30.0-30.9,adult Start:01-Jan-2018 Instruction Type:Provider Instructions for Treatment How to access health informa tion online Indication:Paronychia of finger of left hand Start:22-Sep-2017 Instruction Type:Patient Education How to access health informa tion online - Detail Indication:Paronychia of finger of left hand Start:22-Sep-2017 Instruction Type:Patient Education Patient Instructions Indication:Paronychia of finger of left hand Start:22-Sep-2017 Instruction Type:Provider Instructions for Treatment How to access health informa tion online Indication:Impaired fasting glucose Start:31-May-2017 Instruction Type:Patient Education How to access health informa tion online - Detail Indication:Impaired fasting glucose Start:31-May-2017 Instruction Type:Patient Education Patient Instructions Indication:Impaired fasting glucose Start:31-May-2017 Instruction Type:Provider Instructions for Treatment How to access health informa tion online Indication:ADD (attention deficit disorder) Start:27-Jul-2016 Instruction Type:Patient Education How to access health informa tion online - Detail Indication:ADD (attention deficit disorder) Start:27-Jul-2016 Instruction Type:Patient Education Patient Instructions Indication:ADD (attention deficit disorder) Start:27-Jul-2016 Instruction Type:Provider Instructions for Treatment How to access health informa tion online Indication:ADD (attention deficit disorder) Start:21-Apr-2016 Instruction Type:Patient Education How to access health informa tion online - Detail Indication:ADD (attention deficit disorder) Start:21-Apr-2016 Instruction Type:Patient Education Patient Instructions Indication:ADD (attention deficit disorder) Start:21-Apr-2016 Instruction Type:Provider Instructions for Treatment How to access health informa tion online Indication:Hypertension, benign Start:02-Dec-2015 Instruction Type:Patient Education How to access health informa tion online - Detail Indication:Hypertension, benign Start:02-Dec-2015 Instruction Type:Patient Education Patient Instructions Indication:Hypertension, benign Start:02-Dec-2015 Instruction Type:Provider Instructions for Treatment [facility]; [facility] Work Phone: Instructions* Name Dates Details Patient Instructions Indication:Nonsmoker Start:22-Feb-2023 Instruction Type:Provider Instructions for Treatment How to Access Health Informa tion Online using Patient Portal and [employer] Apps Indication:Nonsmoker Start:22-Feb-2023 Instruction Type:Patient Education How to Access Health Informa tion Online using Patient Portal and [employer] Apps Indication:ADD (attention deficit disorder) Start:20-Feb-2023 Instruction Type:Patient Education Patient Instructions Indication:ADD (attention deficit disorder) Start:20-Feb-2023 Instruction Type:Provider Instructions for Treatment How to Access Health Informa tion Online using Patient Portal and [employer] Indication:BMI 30.0-30.9,adult Start:3-May-2023 Instruction Type:Patient Education Patient Instructions Indication:BMI 30.0-30.9,adult Start:14-Dec-2022 Instruction Type:Provider Instructions for Treatment Patient Instructions Indication:BMI 30.0-30.9,adult Start:24-Nov-2022 Instruction Type:Provider Instructions for Treatment How to Access Health Informa tion Online using Patient Portal and [employer] Indication:BMI 30.0-30.9,adult Start:24-Nov-2022 Instruction Type:Patient Education Patient Instructions Indication:Nonsmoker Start:08-Feb-2022 Instruction Type:Provider Instructions for Treatment How to Access Health Informa tion Online using Patient Portal and [employer] Apps Indication:Nonsmoker Start:08-Feb-2022 Instruction Type:Patient Education Patient Instructions Indication:Therapeutic drug monitoring Start:26-Aug-2021 Instruction Type:Provider Instructions for Treatment How to Access Health Informa tion Online using Patient Portal and [employer] Apps Indication:Therapeutic drug monitoring Start:26-Aug-2021 Instruction Type:Patient Education Patient Instructions Indication:BMI 30.0-30.9,adult Start:28-Jun-2021 Instruction Type:Provider Instructions for Treatment How to Access Health Informa tion Online using Patient Portal and [employer] Indication:BMI 30.0-30.9,adult Start:28-Jun-2021 Instruction Type:Patient Education Patient Instructions Indication:ADD (attention deficit disorder) Start:20-Apr-2021 Instruction Type:Provider Instructions for Treatment How to Access Health Informa tion Online using Patient Portal and [employer] Indication:ADD (attention deficit disorder) Start:20-Apr-2021 Instruction Type:Patient Education Patient Instructions Indication:Nonsmoker Start:16-Mar-2021 Instruction Type:Provider Instructions for Treatment How to Access Health Informa tion Online using Patient Portal and [employer] Apps Indication:Nonsmoker Start:16-Mar-2021 Instruction Type:Patient Education Patient Instructions Indication:Nonsmoker Start:01-Mar-2021 Instruction Type:Provider Instructions for Treatment How to Access Health Informa tion Online using Patient Portal and [employer] Apps Indication:Nonsmoker Start:01-Mar-2021 Instruction Type:Patient Education How to access health informa tion online Indication:BMI 28.0-28.9,adult Start:03-Mar-2020 Instruction Type:Patient Education How to access health informa tion online - Detail Indication:BMI 28.0-28.9,adult Start:03-Mar-2020 Instruction Type:Patient Education Patient Instructions Indication:BMI 28.0-28.9,adult Start:03-Mar-2020 Instruction Type:Provider Instructions for Treatment How to access health informa tion online Indication:Nonsmoker Start:15-Oct-2019 Instruction Type:Patient Education How to access health informa tion online - Detail Indication:Nonsmoker Start:15-Oct-2019 Instruction Type:Patient Education Patient Instructions Indication:Nonsmoker Start:15-Oct-2019 Instruction Type:Provider Instructions for Treatment How to access health informa tion online Indication:Nonsmoker Start:17-Apr-2019 Instruction Type:Patient Education How to access health informa tion online - Detail Indication:Nonsmoker Start:17-Apr-2019 Instruction Type:Patient Education Patient Instructions Indication:Nonsmoker Start:17-Apr-2019 Instruction Type:Provider Instructions for Treatment How to access health informa tion online Indication:BMI 30.0-30.9,adult Start:01-Jan-2018 Instruction Type:Patient Education Patient Instructions Indication:BMI 30.0-30.9,adult Start:01-Jan-2018 Instruction Type:Provider Instructions for Treatment How to access health informa tion online Indication:Paronychia of finger of left hand Start:22-Sep-2017 Instruction Type:Patient Education How to access health informa tion online - Detail Indication:Paronychia of finger of left hand Start:22-Sep-2017 Instruction Type:Patient Education Patient Instructions Indication:Paronychia of finger of left hand Start:22-Sep-2017 Instruction Type:Provider Instructions for Treatment How to access health informa tion online Indication:Impaired fasting glucose Start:31-May-2017 Instruction Type:Patient Education How to access health informa tion online - Detail Indication:Impaired fasting glucose Start:31-May-2017 Instruction Type:Patient Education Patient Instructions Indication:Impaired fasting glucose Start:31-May-2017 Instruction Type:Provider Instructions for Treatment How to access health informa tion online Indication:ADD (attention deficit disorder) Start:27-Jul-2016 Instruction Type:Patient Education How to access health informa tion online - Detail Indication:ADD (attention deficit disorder) Start:27-Jul-2016 Instruction Type:Patient Education Patient Instructions Indication:ADD (attention deficit disorder) Start:27-Jul-2016 Instruction Type:Provider Instructions for Treatment How to access health informa tion online Indication:ADD (attention deficit disorder) Start:21-Apr-2016 Instruction Type:Patient Education How to access health informa tion online - Detail Indication:ADD (attention deficit disorder) Start:21-Apr-2016 Instruction Type:Patient Education Patient Instructions Indication:ADD (attention deficit disorder) Start:21-Apr-2016 Instruction Type:Provider Instructions for Treatment How to access health informa tion online Indication:Hypertension, benign Start:02-Dec-2015 Instruction Type:Patient Education How to access health informa tion online - Detail Indication:Hypertension, benign Start:02-Dec-2015 Instruction Type:Patient Education Patient Instructions Indication:Hypertension, benign Start:02-Dec-2015 Instruction Type:Provider Instructions for Treatment [facility]; [facility] Work Phone: Instructions* Name Dates Details Patient Instructions Indication:BMI 29.0-29.9,adult Start:25-May-2023 Instruction Type:Provider Instructions for Treatment How to Access Health Informa tion Online using Patient Portal and [employer] Indication:BMI 29.0-29.9,adult Start:25-May-2023 Instruction Type:Patient Education Patient Instructions Indication:Nonsmoker Start:22-Feb-2023 Instruction Type:Provider Instructions for Treatment How to Access Health Informa tion Online using Patient Portal and [employer] Indication:Nonsmoker Start:22-Feb-2023 Instruction Type:Patient Education How to Access Health Informa tion Online using Patient Portal and [employer] Apps Indication:ADD (attention deficit disorder) Start:20-Feb-2023 Instruction Type:Patient Education Patient Instructions Indication:ADD (attention deficit disorder) Start:20-Feb-2023 Instruction Type:Provider Instructions for Treatment How to Access Health Informa tion Online using Patient Portal and [employer] Indication:BMI 30.0-30.9,adult Start:14-Dec-2022 Instruction Type:Patient Education Patient Instructions Indication:BMI 30.0-30.9,adult Start:14-Dec-2022 Instruction Type:Provider Instructions for Treatment Patient Instructions Indication:BMI 30.0-30.9,adult Start:24-Nov-2022 Instruction Type:Provider Instructions for Treatment How to Access Health Informa tion Online using Patient Portal and [employer] Indication:BMI 30.0-30.9,adult Start:24-Nov-2022 Instruction Type:Patient Education Patient Instructions Indication:Nonsmoker Start:08-Feb-2022 Instruction Type:Provider Instructions for Treatment How to Access Health Informa tion Online using Patient Portal and [employer] Indication:Nonsmoker Start:08-Feb-2022 Instruction Type:Patient Education Patient Instructions Indication:Therapeutic drug monitoring Start:26-Aug-2021 Instruction Type:Provider Instructions for Treatment How to Access Health Informa tion Online using Patient Portal and [employer] Indication:Therapeutic drug monitoring Start:26-Aug-2021 Instruction Type:Patient Education Patient Instructions Indication:BMI 30.0-30.9,adult Start:28-Jun-2021 Instruction Type:Provider Instructions for Treatment How to Access Health Informa tion Online using Patient Portal and [employer] Apps Indication:BMI 30.0-30.9,adult Start:28-Jun-2021 Instruction Type:Patient Education Patient Instructions Indication:ADD (attention deficit disorder) Start:20-Apr-2021 Instruction Type:Provider Instructions for Treatment How to Access Health Informa tion Online using Patient Portal and [employer] Indication:ADD (attention deficit disorder) Start:20-Apr-2021 Instruction Type:Patient Education Patient Instructions Indication:Nonsmoker Start:16-Mar-2021 Instruction Type:Provider Instructions for Treatment How to Access Health Informa tion Online using Patient Portal and [employer] Indication:Nonsmoker Start:16-Mar-2021 Instruction Type:Patient Education Patient Instructions Indication:Nonsmoker Start:01-Mar-2021 Instruction Type:Provider Instructions for Treatment How to Access Health Informa tion Online using Patient Portal and [employer] Indication:Nonsmoker Start:01-Mar-2021 Instruction Type:Patient Education How to access health informa tion online Indication:BMI 28.0-28.9,adult Start:03-Mar-2020 Instruction Type:Patient Education How to access health informa tion online - Detail Indication:BMI 28.0-28.9,adult Start:03-Mar-2020 Instruction Type:Patient Education Patient Instructions Indication:BMI 28.0-28.9,adult Start:03-Mar-2020 Instruction Type:Provider Instructions for Treatment How to access health informa tion online Indication:Nonsmoker Start:15-Oct-2019 Instruction Type:Patient Education How to access health informa tion online - Detail Indication:Nonsmoker Start:15-Oct-2019 Instruction Type:Patient Education Patient Instructions Indication:Nonsmoker Start:15-Oct-2019 Instruction Type:Provider Instructions for Treatment How to access health informa tion online Indication:Nonsmoker Start:17-Apr-2019 Instruction Type:Patient Education How to access health informa tion online - Detail Indication:Nonsmoker Start:17-Apr-2019 Instruction Type:Patient Education Patient Instructions Indication:Nonsmoker Start:17-Apr-2019 Instruction Type:Provider Instructions for Treatment How to access health informa tion online Indication:BMI 30.0-30.9,adult Start:01-Jan-2018 Instruction Type:Patient Education Patient Instructions Indication:BMI 30.0-30.9,adult Start:01-Jan-2018 Instruction Type:Provider Instructions for Treatment How to access health informa tion online Indication:Paronychia of finger of left hand Start:22-Sep-2017 Instruction Type:Patient Education How to access health informa tion online - Detail Indication:Paronychia of finger of left hand Start:22-Sep-2017 Instruction Type:Patient Education Patient Instructions Indication:Paronychia of finger of left hand Start:22-Sep-2017 Instruction Type:Provider Instructions for Treatment How to access health informa tion online Indication:Impaired fasting glucose Start:31-May-2017 Instruction Type:Patient Education How to access health informa tion online - Detail Indication:Impaired fasting glucose Start:31-May-2017 Instruction Type:Patient Education Patient Instructions Indication:Impaired fasting glucose Start:31-May-2017 Instruction Type:Provider Instructions for Treatment How to access health informa tion online Indication:ADD (attention deficit disorder) Start:27-Jul-2016 Instruction Type:Patient Education How to access health informa tion online - Detail Indication:ADD (attention deficit disorder) Start:27-Jul-2016 Instruction Type:Patient Education Patient Instructions Indication:ADD (attention deficit disorder) Start:27-Jul-2016 Instruction Type:Provider Instructions for Treatment How to access health informa tion online Indication:ADD (attention deficit disorder) Start:21-Apr-2016 Instruction Type:Patient Education How to access health informa tion online - Detail Indication:ADD (attention deficit disorder) Start:21-Apr-2016 Instruction Type:Patient Education Patient Instructions Indication:ADD (attention deficit disorder) Start:21-Apr-2016 Instruction Type:Provider Instructions for Treatment How to access health informa tion online Indication:Hypertension, benign Start:02-Dec-2015 Instruction Type:Patient Education How to access health informa tion online - Detail Indication:Hypertension, benign Start:02-Dec-2015 Instruction Type:Patient Education Patient Instructions Indication:Hypertension, benign Start:02-Dec-2015 Instruction Type:Provider Instructions for Treatment [facility]; [facility] Work Phone: Family History Unknown Family Member Name Dates Details Brother 1 Comments:skin issues Status:Active Father Comments:diabetes, heart dis ease, cancer Status:Active Maternal Grandfather Comments:alcoholism Status:Active Maternal Grandmother Comments:skin issues Status:Active Mother Comments:Diabetes, Kidney pr oblems (one removed), thyroid Status:Active Paternal Grandfather Comments:heart disease Status:Active Sister 1 Comments:fibromylagia, depre ssion, Huntley's palsey, circulation issues Status:Active Unknown Family Member Name Dates Details Brother 1 Comments:skin issues Status:Active Father Comments:diabetes, heart dis ease, cancer Status:Active Maternal Grandfather Comments:alcoholism Status:Active Maternal Grandmother Comments:skin issues Status:Active Mother Comments:Diabetes, Kidney pr oblems (one removed), thyroid Status:Active Paternal Grandfather Comments:heart disease Status:Active Sister 1 Comments:fibromylagia, depre ssion, Huntley's palsey, circulation issues Status:Active Unknown Family Member Name Dates Details Brother 1 Comments:skin issues Status:Active Father Comments:diabetes, heart dis ease, cancer Status:Active Maternal Grandfather Comments:alcoholism Status:Active Maternal Grandmother Comments:skin issues Status:Active Mother Comments:Diabetes, Kidney pr oblems (one removed), thyroid Status:Active Paternal Grandfather Comments:heart disease Status:Active Sister 1 Comments:fibromylagia, depre ssion, Huntley's palsey, circulation issues Status:Active Unknown Family Member Name Dates Details Brother 1 Comments:skin issues Status:Active Father Comments:diabetes, heart dis ease, cancer Status:Active Maternal Grandfather Comments:alcoholism Status:Active Maternal Grandmother Comments:skin issues Status:Active Mother Comments:Diabetes, Kidney pr oblems (one removed), thyroid Status:Active Paternal Grandfather Comments:heart disease Status:Active Sister 1 Comments:fibromylagia, depre ssion, Huntley's palsey, circulation issues Status:Active Unknown Family Member Name Dates Details Brother 1 Comments:skin issues Status:Active Father Comments:diabetes, heart dis ease, cancer Status:Active Maternal Grandfather Comments:alcoholism Status:Active Maternal Grandmother Comments:skin issues Status:Active Mother Comments:Diabetes, Kidney pr oblems (one removed), thyroid Status:Active Paternal Grandfather Comments:heart disease Status:Active Sister 1 Comments:fibromylagia, depre ssion, Huntley's palsey, circulation issues Status:Active Unknown Family Member Name Dates Details Brother 1 Comments:skin issues Status:Active Father Comments:diabetes, heart dis ease, cancer Status:Active Maternal Grandfather Comments:alcoholism Status:Active Maternal Grandmother Comments:skin issues Status:Active Mother Comments:Diabetes, Kidney pr oblems (one removed), thyroid Status:Active Paternal Grandfather Comments:heart disease Status:Active Sister 1 Comments:fibromylagia, depre ssion, Huntley's palsey, circulation issues Status:Active Unknown Family Member Name Dates Details Brother 1 Comments:skin issues Status:Active Father Comments:diabetes, heart dis ease, cancer Status:Active Maternal Grandfather Comments:alcoholism Status:Active Maternal Grandmother Comments:skin issues Status:Active Mother Comments:Diabetes, Kidney pr oblems (one removed), thyroid Status:Active Paternal Grandfather Comments:heart disease Status:Active Sister 1 Comments:fibromylagia, depre ssion, Huntley's palsey, circulation issues Status:Active Unknown Family Member Name Dates Details Brother 1 Comments:skin issues Status:Active Father Comments:diabetes, heart dis ease, cancer Status:Active Maternal Grandfather Comments:alcoholism Status:Active Maternal Grandmother Comments:skin issues Status:Active Mother Comments:Diabetes, Kidney pr oblems (one removed), thyroid Status:Active Paternal Grandfather Comments:heart disease Status:Active Sister 1 Comments:fibromylagia, depre ssion, Huntley's palsey, circulation issues Status:Active Unknown Family Member Name Dates Details Brother 1 Comments:skin issues Status:Active Father Comments:diabetes, heart dis ease, cancer Status:Active Maternal Grandfather Comments:alcoholism Status:Active Maternal Grandmother Comments:skin issues Status:Active Mother Comments:Diabetes, Kidney pr oblems (one removed), thyroid Status:Active Paternal Grandfather Comments:heart disease Status:Active Sister 1 Comments:fibromylagia, depre ssion, Huntley's palsey, circulation issues Status:Active Unknown Family Member Name Dates Details Brother 1 Comments:skin issues Status:Active Father Comments:diabetes, heart dis ease, cancer Status:Active Maternal Grandfather Comments:alcoholism Status:Active Maternal Grandmother Comments:skin issues Status:Active Mother Comments:Diabetes, Kidney pr oblems (one removed), thyroid Status:Active Paternal Grandfather Comments:heart disease Status:Active Sister 1 Comments:fibromylagia, depre ssion, Huntley's palsey, circulation issues Status:Active Unknown Family Member Name Dates Details Brother 1 Comments:skin issues Status:Active Father Comments:diabetes, heart dis ease, cancer Status:Active Maternal Grandfather Comments:alcoholism Status:Active Maternal Grandmother Comments:skin issues Status:Active Mother Comments:Diabetes, Kidney pr oblems (one removed), thyroid Status:Active Paternal Grandfather Comments:heart disease Status:Active Sister 1 Comments:fibromylagia, depre ssion, Huntley's palsey, circulation issues Status:Active Unknown Family Member Name Dates Details Brother 1 Comments:skin issues Status:Active Father Comments:diabetes, heart dis ease, cancer Status:Active Maternal Grandfather Comments:alcoholism Status:Active Maternal Grandmother Comments:skin issues Status:Active Mother Comments:Diabetes, Kidney pr oblems (one removed), thyroid Status:Active Paternal Grandfather Comments:heart disease Status:Active Sister 1 Comments:fibromylagia, depre ssion, Huntley's palsey, circulation issues Status:Active Unknown Family Member Name Dates Details Brother 1 Comments:skin issues Status:Active Father Comments:diabetes, heart dis ease, cancer Status:Active Maternal Grandfather Comments:alcoholism Status:Active Maternal Grandmother Comments:skin issues Status:Active Mother Comments:Diabetes, Kidney pr oblems (one removed), thyroid Status:Active Paternal Grandfather Comments:heart disease Status:Active Sister 1 Comments:fibromylagia, depre ssion, Huntley's palsey, circulation issues Status:Active Unknown Family Member Name Dates Details Brother 1 Comments:skin issues Status:Active Father Comments:diabetes, heart dis ease, cancer Status:Active Maternal Grandfather Comments:alcoholism Status:Active Maternal Grandmother Comments:skin issues Status:Active Mother Comments:Diabetes, Kidney pr oblems (one removed), thyroid Status:Active Paternal Grandfather Comments:heart disease Status:Active Sister 1 Comments:fibromylagia, depre ssion, Huntley's palsey, circulation issues Status:Active Unknown Family Member Name Dates Details Brother 1 Comments:skin issues Status:Active Father Comments:diabetes, heart dis ease, cancer Status:Active Maternal Grandfather Comments:alcoholism Status:Active Maternal Grandmother Comments:skin issues Status:Active Mother Comments:Diabetes, Kidney pr oblems (one removed), thyroid Status:Active Paternal Grandfather Comments:heart disease Status:Active Sister 1 Comments:fibromylagia, depre ssion, Huntley's palsey, circulation issues Status:Active Unknown Family Member Name Dates Details Brother 1 Comments:skin issues Status:Active Father Comments:diabetes, heart dis ease, cancer Status:Active Maternal Grandfather Comments:alcoholism Status:Active Maternal Grandmother Comments:skin issues Status:Active Mother Comments:Diabetes, Kidney pr oblems (one removed), thyroid Status:Active Paternal Grandfather Comments:heart disease Status:Active Sister 1 Comments:fibromylagia, depre ssion, Huntley's palsey, circulation issues Status:Active Unknown Family Member Name Dates Details Brother 1 Comments:skin issues Status:Active Father Comments:diabetes, heart dis ease, cancer Status:Active Maternal Grandfather Comments:alcoholism Status:Active Maternal Grandmother Comments:skin issues Status:Active Mother Comments:Diabetes, Kidney pr oblems (one removed), thyroid Status:Active Paternal Grandfather Comments:heart disease Status:Active Sister 1 Comments:fibromylagia, depre ssion, Huntley's palsey, circulation issues Status:Active Unknown Family Member Name Dates Details Brother 1 Comments:skin issues Status:Active Father Comments:diabetes, heart dis ease, cancer Status:Active Maternal Grandfather Comments:alcoholism Status:Active Maternal Grandmother Comments:skin issues Status:Active Mother Comments:Diabetes, Kidney pr oblems (one removed), thyroid Status:Active Paternal Grandfather Comments:heart disease Status:Active Sister 1 Comments:fibromylagia, depre ssion, Huntley's palsey, circulation issues Status:Active Unknown Family Member Name Dates Details Brother 1 Comments:skin issues Status:Active Father Comments:diabetes, heart dis ease, cancer Status:Active Maternal Grandfather Comments:alcoholism Status:Active Maternal Grandmother Comments:skin issues Status:Active Mother Comments:Diabetes, Kidney pr oblems (one removed), thyroid Status:Active Paternal Grandfather Comments:heart disease Status:Active Sister 1 Comments:fibromylagia, depre ssion, Huntley's palsey, circulation issues Status:Active Unknown Family Member Name Dates Details Brother 1 Comments:skin issues Status:Active Father Comments:diabetes, heart dis ease, cancer Status:Active Maternal Grandfather Comments:alcoholism Status:Active Maternal Grandmother Comments:skin issues Status:Active Mother Comments:Diabetes, Kidney pr oblems (one removed), thyroid Status:Active Paternal Grandfather Comments:heart disease Status:Active Sister 1 Comments:fibromylagia, depre ssion, Huntley's palsey, circulation issues Status:Active Unknown Family Member Name Dates Details Brother 1 Comments:skin issues Status:Active Father Comments:diabetes, heart dis ease, cancer Status:Active Maternal Grandfather Comments:alcoholism Status:Active Maternal Grandmother Comments:skin issues Status:Active Mother Comments:Diabetes, Kidney pr oblems (one removed), thyroid Status:Active Paternal Grandfather Comments:heart disease Status:Active Sister 1 Comments:fibromylagia, depre ssion, Huntley's palsey, circulation issues Status:Active Unknown Family Member Name Dates Details Brother 1 Comments:skin issues Status:Active Father Comments:diabetes, heart dis ease, cancer Status:Active Maternal Grandfather Comments:alcoholism Status:Active Maternal Grandmother Comments:skin issues Status:Active Mother Comments:Diabetes, Kidney pr oblems (one removed), thyroid Status:Active Paternal Grandfather Comments:heart disease Status:Active Sister 1 Comments:fibromylagia, depre ssion, Huntley's palsey, circulation issues Status:Active Unknown Family Member Name Dates Details Brother 1 Comments:skin issues Status:Active Father Comments:diabetes, heart dis ease, cancer Status:Active Maternal Grandfather Comments:alcoholism Status:Active Maternal Grandmother Comments:skin issues Status:Active Mother Comments:Diabetes, Kidney pr oblems (one removed), thyroid Status:Active Paternal Grandfather Comments:heart disease Status:Active Sister 1 Comments:fibromylagia, depre ssion, Huntley's palsey, circulation issues Status:Active Unknown Family Member Name Dates Details Brother 1 Comments:skin issues Status:Active Father Comments:diabetes, heart dis ease, cancer Status:Active Maternal Grandfather Comments:alcoholism Status:Active Maternal Grandmother Comments:skin issues Status:Active Mother Comments:Diabetes, Kidney pr oblems (one removed), thyroid Status:Active Paternal Grandfather Comments:heart disease Status:Active Sister 1 Comments:fibromylagia, depre ssion, Huntley's palsey, circulation issues Status:Active Unknown Family Member Name Dates Details Brother 1 Comments:skin issues Status:Active Father Comments:diabetes, heart dis ease, cancer Status:Active Maternal Grandfather Comments:alcoholism Status:Active Maternal Grandmother Comments:skin issues Status:Active Mother Comments:Diabetes, Kidney pr oblems (one removed), thyroid Status:Active Paternal Grandfather Comments:heart disease Status:Active Sister 1 Comments:fibromylagia, depre ssion, Huntley's palsey, circulation issues Status:Active Unknown Family Member Name Dates Details Brother 1 Comments:skin issues Status:Active Father Comments:diabetes, heart dis ease, cancer Status:Active Maternal Grandfather Comments:alcoholism Status:Active Maternal Grandmother Comments:skin issues Status:Active Mother Comments:Diabetes, Kidney pr oblems (one removed), thyroid Status:Active Paternal Grandfather Comments:heart disease Status:Active Sister 1 Comments:fibromylagia, depre ssion, Huntley's palsey, circulation issues Status:Active Unknown Family Member Name Dates Details Brother 1 Comments:skin issues Status:Active Father Comments:diabetes, heart dis ease, cancer Status:Active Maternal Grandfather Comments:alcoholism Status:Active Maternal Grandmother Comments:skin issues Status:Active Mother Comments:Diabetes, Kidney pr oblems (one removed), thyroid Status:Active Paternal Grandfather Comments:heart disease Status:Active Sister 1 Comments:fibromylagia, depre ssion, Huntley's palsey, circulation issues Status:Active Unknown Family Member Name Dates Details Brother 1 Comments:skin issues Status:Active Father Comments:diabetes, heart dis ease, cancer Status:Active Maternal Grandfather Comments:alcoholism Status:Active Maternal Grandmother Comments:skin issues Status:Active Mother Comments:Diabetes, Kidney pr oblems (one removed), thyroid Status:Active Paternal Grandfather Comments:heart disease Status:Active Sister 1 Comments:fibromylagia, depre ssion, Huntley's palsey, circulation issues Status:Active Unknown Family Member Name Dates Details Brother 1 Comments:skin issues Status:Active Father Comments:diabetes, heart dis ease, cancer Status:Active Maternal Grandfather Comments:alcoholism Status:Active Maternal Grandmother Comments:skin issues Status:Active Mother Comments:Diabetes, Kidney pr oblems (one removed), thyroid Status:Active Paternal Grandfather Comments:heart disease Status:Active Sister 1 Comments:fibromylagia, depre ssion, Huntley's palsey, circulation issues Status:Active Unknown Family Member Name Dates Details Brother 1 Comments:skin issues Status:Active Father Comments:diabetes, heart dis ease, cancer Status:Active Maternal Grandfather Comments:alcoholism Status:Active Maternal Grandmother Comments:skin issues Status:Active Mother Comments:Diabetes, Kidney pr oblems (one removed), thyroid Status:Active Paternal Grandfather Comments:heart disease Status:Active Sister 1 Comments:fibromylagia, depre ssion, Huntley's palsey, circulation issues Status:Active Unknown Family Member Name Dates Details Brother 1 Comments:skin issues Status:Active Father Comments:diabetes, heart dis ease, cancer Status:Active Maternal Grandfather Comments:alcoholism Status:Active Maternal Grandmother Comments:skin issues Status:Active Mother Comments:Diabetes, Kidney pr oblems (one removed), thyroid Status:Active Paternal Grandfather Comments:heart disease Status:Active Sister 1 Comments:fibromylagia, depre ssion, Huntley's palsey, circulation issues Status:Active Unknown Family Member Name Dates Details Brother 1 Comments:skin issues Status:Active Father Comments:diabetes, heart dis ease, cancer Status:Active Maternal Grandfather Comments:alcoholism Status:Active Maternal Grandmother Comments:skin issues Status:Active Mother Comments:Diabetes, Kidney pr oblems (one removed), thyroid Status:Active Paternal Grandfather Comments:heart disease Status:Active Sister 1 Comments:fibromylagia, depre ssion, Huntley's palsey, circulation issues Status:Active Unknown Family Member Name Dates Details Brother 1 Comments:skin issues Status:Active Father Comments:diabetes, heart dis ease, cancer Status:Active Maternal Grandfather Comments:alcoholism Status:Active Maternal Grandmother Comments:skin issues Status:Active Mother Comments:Diabetes, Kidney pr oblems (one removed), thyroid Status:Active Paternal Grandfather Comments:heart disease Status:Active Sister 1 Comments:fibromylagia, depre ssion, Huntley's palsey, circulation issues Status:Active Instructions Name Dates Details BMI 30.0-30.9,adult : How to access health information online Indication:BMI 30.0-30.9,adult BMI 30.0-30.9,adult : Patien t Instructions Indication:BMI 30.0-30.9,adult Paronychia of finger of left hand : How to access health information online Indication:Paronychia of finger of left hand Paronychia of finger of left hand : How to access health information online - Detail Indication:Paronychia of finger of left hand Paronychia of finger of left hand : Patient Instructions Indication:Paronychia of finger of left hand Impaired fasting glucose : H ow to access health information online Indication:Impaired fasting glucose Impaired fasting glucose : H ow to access health information online - Detail Indication:Impaired fasting glucose Impaired fasting glucose : P atient Instructions Indication:Impaired fasting glucose ADD (attention deficit disor tavo) : How to access health information online Indication:ADD (attention deficit disorder) ADD (attention deficit disor tavo) : How to access health information online - Detail Indication:ADD (attention deficit disorder) ADD (attention deficit disor tavo) : Patient Instructions Indication:ADD (attention deficit disorder) Hypertension, benign : How t o access health information online Indication:Hypertension, benign Hypertension, benign : How t o access health information online - Detail Indication:Hypertension, benign Hypertension, benign : Patie nt Instructions Indication:Hypertension, benign Name Dates Details BMI 30.0-30.9,adult : How to access health information online Indication:BMI 30.0-30.9,adult BMI 30.0-30.9,adult : Patien t Instructions Indication:BMI 30.0-30.9,adult Paronychia of finger of left hand : How to access health information online Indication:Paronychia of finger of left hand Paronychia of finger of left hand : How to access health information online - Detail Indication:Paronychia of finger of left hand Paronychia of finger of left hand : Patient Instructions Indication:Paronychia of finger of left hand Impaired fasting glucose : H ow to access health information online Indication:Impaired fasting glucose Impaired fasting glucose : H ow to access health information online - Detail Indication:Impaired fasting glucose Impaired fasting glucose : P atient Instructions Indication:Impaired fasting glucose ADD (attention deficit disor tavo) : How to access health information online Indication:ADD (attention deficit disorder) ADD (attention deficit disor tavo) : How to access health information online - Detail Indication:ADD (attention deficit disorder) ADD (attention deficit disor tavo) : Patient Instructions Indication:ADD (attention deficit disorder) Hypertension, benign : How t o access health information online Indication:Hypertension, benign Hypertension, benign : How t o access health information online - Detail Indication:Hypertension, benign Hypertension, benign : Patie nt Instructions Indication:Hypertension, benign Name Dates Details How to access health informa tion online Indication:BMI 30.0-30.9,adult Start:01-Jan-2018 Instruction Type:Patient Education Patient Instructions Indication:BMI 30.0-30.9,adult Start:01-Jan-2018 Instruction Type:Provider Instructions for Treatment How to access health informa tion online Indication:Paronychia of finger of left hand Start:22-Sep-2017 Instruction Type:Patient Education How to access health informa tion online - Detail Indication:Paronychia of finger of left hand Start:22-Sep-2017 Instruction Type:Patient Education Patient Instructions Indication:Paronychia of finger of left hand Start:22-Sep-2017 Instruction Type:Provider Instructions for Treatment How to access health informa tion online Indication:Impaired fasting glucose Start:31-May-2017 Instruction Type:Patient Education How to access health informa tion online - Detail Indication:Impaired fasting glucose Start:31-May-2017 Instruction Type:Patient Education Patient Instructions Indication:Impaired fasting glucose Start:31-May-2017 Instruction Type:Provider Instructions for Treatment How to access health informa tion online Indication:ADD (attention deficit disorder) Start:27-Jul-2016 Instruction Type:Patient Education How to access health informa tion online - Detail Indication:ADD (attention deficit disorder) Start:27-Jul-2016 Instruction Type:Patient Education Patient Instructions Indication:ADD (attention deficit disorder) Start:27-Jul-2016 Instruction Type:Provider Instructions for Treatment How to access health informa tion online Indication:ADD (attention deficit disorder) Start:21-Apr-2016 Instruction Type:Patient Education How to access health informa tion online - Detail Indication:ADD (attention deficit disorder) Start:21-Apr-2016 Instruction Type:Patient Education Patient Instructions Indication:ADD (attention deficit disorder) Start:21-Apr-2016 Instruction Type:Provider Instructions for Treatment How to access health informa tion online Indication:Hypertension, benign Start:02-Dec-2015 Instruction Type:Patient Education How to access health informa tion online - Detail Indication:Hypertension, benign Start:02-Dec-2015 Instruction Type:Patient Education Patient Instructions Indication:Hypertension, benign Start:02-Dec-2015 Instruction Type:Provider Instructions for Treatment Name Dates Details How to access health informa tion online Indication:BMI 30.0-30.9,adult Start:01-Jan-2018 Instruction Type:Patient Education Patient Instructions Indication:BMI 30.0-30.9,adult Start:01-Jan-2018 Instruction Type:Provider Instructions for Treatment How to access health informa tion online Indication:Paronychia of finger of left hand Start:22-Sep-2017 Instruction Type:Patient Education How to access health informa tion online - Detail Indication:Paronychia of finger of left hand Start:22-Sep-2017 Instruction Type:Patient Education Patient Instructions Indication:Paronychia of finger of left hand Start:22-Sep-2017 Instruction Type:Provider Instructions for Treatment How to access health informa tion online Indication:Impaired fasting glucose Start:31-May-2017 Instruction Type:Patient Education How to access health informa tion online - Detail Indication:Impaired fasting glucose Start:31-May-2017 Instruction Type:Patient Education Patient Instructions Indication:Impaired fasting glucose Start:31-May-2017 Instruction Type:Provider Instructions for Treatment How to access health informa tion online Indication:ADD (attention deficit disorder) Start:27-Jul-2016 Instruction Type:Patient Education How to access health informa tion online - Detail Indication:ADD (attention deficit disorder) Start:27-Jul-2016 Instruction Type:Patient Education Patient Instructions Indication:ADD (attention deficit disorder) Start:27-Jul-2016 Instruction Type:Provider Instructions for Treatment How to access health informa tion online Indication:ADD (attention deficit disorder) Start:21-Apr-2016 Instruction Type:Patient Education How to access health informa tion online - Detail Indication:ADD (attention deficit disorder) Start:21-Apr-2016 Instruction Type:Patient Education Patient Instructions Indication:ADD (attention deficit disorder) Start:21-Apr-2016 Instruction Type:Provider Instructions for Treatment How to access health informa tion online Indication:Hypertension, benign Start:02-Dec-2015 Instruction Type:Patient Education How to access health informa tion online - Detail Indication:Hypertension, benign Start:02-Dec-2015 Instruction Type:Patient Education Patient Instructions Indication:Hypertension, benign Start:02-Dec-2015 Instruction Type:Provider Instructions for Treatment Name Dates Details How to access health informa tion online Indication:Nonsmoker Start:17-Apr-2019 Instruction Type:Patient Education How to access health informa tion online - Detail Indication:Nonsmoker Start:17-Apr-2019 Instruction Type:Patient Education Patient Instructions Indication:Nonsmoker Start:17-Apr-2019 Instruction Type:Provider Instructions for Treatment How to access health informa tion online Indication:BMI 30.0-30.9,adult Start:01-Jan-2018 Instruction Type:Patient Education Patient Instructions Indication:BMI 30.0-30.9,adult Start:01-Jan-2018 Instruction Type:Provider Instructions for Treatment How to access health informa tion online Indication:Paronychia of finger of left hand Start:22-Sep-2017 Instruction Type:Patient Education How to access health informa tion online - Detail Indication:Paronychia of finger of left hand Start:22-Sep-2017 Instruction Type:Patient Education Patient Instructions Indication:Paronychia of finger of left hand Start:22-Sep-2017 Instruction Type:Provider Instructions for Treatment How to access health informa tion online Indication:Impaired fasting glucose Start:31-May-2017 Instruction Type:Patient Education How to access health informa tion online - Detail Indication:Impaired fasting glucose Start:31-May-2017 Instruction Type:Patient Education Patient Instructions Indication:Impaired fasting glucose Start:31-May-2017 Instruction Type:Provider Instructions for Treatment How to access health informa tion online Indication:ADD (attention deficit disorder) Start:27-Jul-2016 Instruction Type:Patient Education How to access health informa tion online - Detail Indication:ADD (attention deficit disorder) Start:27-Jul-2016 Instruction Type:Patient Education Patient Instructions Indication:ADD (attention deficit disorder) Start:27-Jul-2016 Instruction Type:Provider Instructions for Treatment How to access health informa tion online Indication:ADD (attention deficit disorder) Start:21-Apr-2016 Instruction Type:Patient Education How to access health informa tion online - Detail Indication:ADD (attention deficit disorder) Start:21-Apr-2016 Instruction Type:Patient Education Patient Instructions Indication:ADD (attention deficit disorder) Start:21-Apr-2016 Instruction Type:Provider Instructions for Treatment How to access health informa tion online Indication:Hypertension, benign Start:02-Dec-2015 Instruction Type:Patient Education How to access health informa tion online - Detail Indication:Hypertension, benign Start:02-Dec-2015 Instruction Type:Patient Education Patient Instructions Indication:Hypertension, benign Start:02-Dec-2015 Instruction Type:Provider Instructions for Treatment Name Dates Details How to access health informa tion online Indication:Nonsmoker Start:17-Apr-2019 Instruction Type:Patient Education How to access health informa tion online - Detail Indication:Nonsmoker Start:17-Apr-2019 Instruction Type:Patient Education Patient Instructions Indication:Nonsmoker Start:17-Apr-2019 Instruction Type:Provider Instructions for Treatment How to access health informa tion online Indication:BMI 30.0-30.9,adult Start:01-Jan-2018 Instruction Type:Patient Education Patient Instructions Indication:BMI 30.0-30.9,adult Start:01-Jan-2018 Instruction Type:Provider Instructions for Treatment How to access health informa tion online Indication:Paronychia of finger of left hand Start:22-Sep-2017 Instruction Type:Patient Education How to access health informa tion online - Detail Indication:Paronychia of finger of left hand Start:22-Sep-2017 Instruction Type:Patient Education Patient Instructions Indication:Paronychia of finger of left hand Start:22-Sep-2017 Instruction Type:Provider Instructions for Treatment How to access health informa tion online Indication:Impaired fasting glucose Start:31-May-2017 Instruction Type:Patient Education How to access health informa tion online - Detail Indication:Impaired fasting glucose Start:31-May-2017 Instruction Type:Patient Education Patient Instructions Indication:Impaired fasting glucose Start:31-May-2017 Instruction Type:Provider Instructions for Treatment How to access health informa tion online Indication:ADD (attention deficit disorder) Start:27-Jul-2016 Instruction Type:Patient Education How to access health informa tion online - Detail Indication:ADD (attention deficit disorder) Start:27-Jul-2016 Instruction Type:Patient Education Patient Instructions Indication:ADD (attention deficit disorder) Start:27-Jul-2016 Instruction Type:Provider Instructions for Treatment How to access health informa tion online Indication:ADD (attention deficit disorder) Start:21-Apr-2016 Instruction Type:Patient Education How to access health informa tion online - Detail Indication:ADD (attention deficit disorder) Start:21-Apr-2016 Instruction Type:Patient Education Patient Instructions Indication:ADD (attention deficit disorder) Start:21-Apr-2016 Instruction Type:Provider Instructions for Treatment How to access health informa tion online Indication:Hypertension, benign Start:02-Dec-2015 Instruction Type:Patient Education How to access health informa tion online - Detail Indication:Hypertension, benign Start:02-Dec-2015 Instruction Type:Patient Education Patient Instructions Indication:Hypertension, benign Start:02-Dec-2015 Instruction Type:Provider Instructions for Treatment Name Dates Details How to access health informa tion online Indication:Nonsmoker Start:17-Apr-2019 Instruction Type:Patient Education How to access health informa tion online - Detail Indication:Nonsmoker Start:17-Apr-2019 Instruction Type:Patient Education Patient Instructions Indication:Nonsmoker Start:17-Apr-2019 Instruction Type:Provider Instructions for Treatment How to access health informa tion online Indication:BMI 30.0-30.9,adult Start:01-Jan-2018 Instruction Type:Patient Education Patient Instructions Indication:BMI 30.0-30.9,adult Start:01-Jan-2018 Instruction Type:Provider Instructions for Treatment How to access health informa tion online Indication:Paronychia of finger of left hand Start:22-Sep-2017 Instruction Type:Patient Education How to access health informa tion online - Detail Indication:Paronychia of finger of left hand Start:22-Sep-2017 Instruction Type:Patient Education Patient Instructions Indication:Paronychia of finger of left hand Start:22-Sep-2017 Instruction Type:Provider Instructions for Treatment How to access health informa tion online Indication:Impaired fasting glucose Start:31-May-2017 Instruction Type:Patient Education How to access health informa tion online - Detail Indication:Impaired fasting glucose Start:31-May-2017 Instruction Type:Patient Education Patient Instructions Indication:Impaired fasting glucose Start:31-May-2017 Instruction Type:Provider Instructions for Treatment How to access health informa tion online Indication:ADD (attention deficit disorder) Start:27-Jul-2016 Instruction Type:Patient Education How to access health informa tion online - Detail Indication:ADD (attention deficit disorder) Start:27-Jul-2016 Instruction Type:Patient Education Patient Instructions Indication:ADD (attention deficit disorder) Start:27-Jul-2016 Instruction Type:Provider Instructions for Treatment How to access health informa tion online Indication:ADD (attention deficit disorder) Start:21-Apr-2016 Instruction Type:Patient Education How to access health informa tion online - Detail Indication:ADD (attention deficit disorder) Start:21-Apr-2016 Instruction Type:Patient Education Patient Instructions Indication:ADD (attention deficit disorder) Start:21-Apr-2016 Instruction Type:Provider Instructions for Treatment How to access health informa tion online Indication:Hypertension, benign Start:02-Dec-2015 Instruction Type:Patient Education How to access health informa tion online - Detail Indication:Hypertension, benign Start:02-Dec-2015 Instruction Type:Patient Education Patient Instructions Indication:Hypertension, benign Start:02-Dec-2015 Instruction Type:Provider Instructions for Treatment Name Dates Details How to access health informa tion online Indication:BMI 28.0-28.9,adult Start:03-Mar-2020 Instruction Type:Patient Education How to access health informa tion online - Detail Indication:BMI 28.0-28.9,adult Start:03-Mar-2020 Instruction Type:Patient Education Patient Instructions Indication:BMI 28.0-28.9,adult Start:03-Mar-2020 Instruction Type:Provider Instructions for Treatment How to access health informa tion online Indication:Nonsmoker Start:15-Oct-2019 Instruction Type:Patient Education How to access health informa tion online - Detail Indication:Nonsmoker Start:15-Oct-2019 Instruction Type:Patient Education Patient Instructions Indication:Nonsmoker Start:15-Oct-2019 Instruction Type:Provider Instructions for Treatment How to access health informa tion online Indication:Nonsmoker Start:17-Apr-2019 Instruction Type:Patient Education How to access health informa tion online - Detail Indication:Nonsmoker Start:17-Apr-2019 Instruction Type:Patient Education Patient Instructions Indication:Nonsmoker Start:17-Apr-2019 Instruction Type:Provider Instructions for Treatment How to access health informa tion online Indication:BMI 30.0-30.9,adult Start:01-Jan-2018 Instruction Type:Patient Education Patient Instructions Indication:BMI 30.0-30.9,adult Start:01-Jan-2018 Instruction Type:Provider Instructions for Treatment How to access health informa tion online Indication:Paronychia of finger of left hand Start:22-Sep-2017 Instruction Type:Patient Education How to access health informa tion online - Detail Indication:Paronychia of finger of left hand Start:22-Sep-2017 Instruction Type:Patient Education Patient Instructions Indication:Paronychia of finger of left hand Start:22-Sep-2017 Instruction Type:Provider Instructions for Treatment How to access health informa tion online Indication:Impaired fasting glucose Start:31-May-2017 Instruction Type:Patient Education How to access health informa tion online - Detail Indication:Impaired fasting glucose Start:31-May-2017 Instruction Type:Patient Education Patient Instructions Indication:Impaired fasting glucose Start:31-May-2017 Instruction Type:Provider Instructions for Treatment How to access health informa tion online Indication:ADD (attention deficit disorder) Start:27-Jul-2016 Instruction Type:Patient Education How to access health informa tion online - Detail Indication:ADD (attention deficit disorder) Start:27-Jul-2016 Instruction Type:Patient Education Patient Instructions Indication:ADD (attention deficit disorder) Start:27-Jul-2016 Instruction Type:Provider Instructions for Treatment How to access health informa tion online Indication:ADD (attention deficit disorder) Start:21-Apr-2016 Instruction Type:Patient Education How to access health informa tion online - Detail Indication:ADD (attention deficit disorder) Start:21-Apr-2016 Instruction Type:Patient Education Patient Instructions Indication:ADD (attention deficit disorder) Start:21-Apr-2016 Instruction Type:Provider Instructions for Treatment How to access health informa tion online Indication:Hypertension, benign Start:02-Dec-2015 Instruction Type:Patient Education How to access health informa tion online - Detail Indication:Hypertension, benign Start:02-Dec-2015 Instruction Type:Patient Education Patient Instructions Indication:Hypertension, benign Start:02-Dec-2015 Instruction Type:Provider Instructions for Treatment Name Dates Details How to access health informa tion online Indication:BMI 28.0-28.9,adult Start:03-Mar-2020 Instruction Type:Patient Education How to access health informa tion online - Detail Indication:BMI 28.0-28.9,adult Start:03-Mar-2020 Instruction Type:Patient Education Patient Instructions Indication:BMI 28.0-28.9,adult Start:03-Mar-2020 Instruction Type:Provider Instructions for Treatment How to access health informa tion online Indication:Nonsmoker Start:15-Oct-2019 Instruction Type:Patient Education How to access health informa tion online - Detail Indication:Nonsmoker Start:15-Oct-2019 Instruction Type:Patient Education Patient Instructions Indication:Nonsmoker Start:15-Oct-2019 Instruction Type:Provider Instructions for Treatment How to access health informa tion online Indication:Nonsmoker Start:17-Apr-2019 Instruction Type:Patient Education How to access health informa tion online - Detail Indication:Nonsmoker Start:17-Apr-2019 Instruction Type:Patient Education Patient Instructions Indication:Nonsmoker Start:17-Apr-2019 Instruction Type:Provider Instructions for Treatment How to access health informa tion online Indication:BMI 30.0-30.9,adult Start:01-Jan-2018 Instruction Type:Patient Education Patient Instructions Indication:BMI 30.0-30.9,adult Start:01-Jan-2018 Instruction Type:Provider Instructions for Treatment How to access health informa tion online Indication:Paronychia of finger of left hand Start:22-Sep-2017 Instruction Type:Patient Education How to access health informa tion online - Detail Indication:Paronychia of finger of left hand Start:22-Sep-2017 Instruction Type:Patient Education Patient Instructions Indication:Paronychia of finger of left hand Start:22-Sep-2017 Instruction Type:Provider Instructions for Treatment How to access health informa tion online Indication:Impaired fasting glucose Start:31-May-2017 Instruction Type:Patient Education How to access health informa tion online - Detail Indication:Impaired fasting glucose Start:31-May-2017 Instruction Type:Patient Education Patient Instructions Indication:Impaired fasting glucose Start:31-May-2017 Instruction Type:Provider Instructions for Treatment How to access health informa tion online Indication:ADD (attention deficit disorder) Start:27-Jul-2016 Instruction Type:Patient Education How to access health informa tion online - Detail Indication:ADD (attention deficit disorder) Start:27-Jul-2016 Instruction Type:Patient Education Patient Instructions Indication:ADD (attention deficit disorder) Start:27-Jul-2016 Instruction Type:Provider Instructions for Treatment How to access health informa tion online Indication:ADD (attention deficit disorder) Start:21-Apr-2016 Instruction Type:Patient Education How to access health informa tion online - Detail Indication:ADD (attention deficit disorder) Start:21-Apr-2016 Instruction Type:Patient Education Patient Instructions Indication:ADD (attention deficit disorder) Start:21-Apr-2016 Instruction Type:Provider Instructions for Treatment How to access health informa tion online Indication:Hypertension, benign Start:02-Dec-2015 Instruction Type:Patient Education How to access health informa tion online - Detail Indication:Hypertension, benign Start:02-Dec-2015 Instruction Type:Patient Education Patient Instructions Indication:Hypertension, benign Start:02-Dec-2015 Instruction Type:Provider Instructions for Treatment Name Dates Details How to access health informa tion online Indication:BMI 28.0-28.9,adult Start:03-Mar-2020 Instruction Type:Patient Education How to access health informa tion online - Detail Indication:BMI 28.0-28.9,adult Start:03-Mar-2020 Instruction Type:Patient Education Patient Instructions Indication:BMI 28.0-28.9,adult Start:03-Mar-2020 Instruction Type:Provider Instructions for Treatment How to access health informa tion online Indication:Nonsmoker Start:15-Oct-2019 Instruction Type:Patient Education How to access health informa tion online - Detail Indication:Nonsmoker Start:15-Oct-2019 Instruction Type:Patient Education Patient Instructions Indication:Nonsmoker Start:15-Oct-2019 Instruction Type:Provider Instructions for Treatment How to access health informa tion online Indication:Nonsmoker Start:17-Apr-2019 Instruction Type:Patient Education How to access health informa tion online - Detail Indication:Nonsmoker Start:17-Apr-2019 Instruction Type:Patient Education Patient Instructions Indication:Nonsmoker Start:17-Apr-2019 Instruction Type:Provider Instructions for Treatment How to access health informa tion online Indication:BMI 30.0-30.9,adult Start:01-Jan-2018 Instruction Type:Patient Education Patient Instructions Indication:BMI 30.0-30.9,adult Start:01-Jan-2018 Instruction Type:Provider Instructions for Treatment How to access health informa tion online Indication:Paronychia of finger of left hand Start:22-Sep-2017 Instruction Type:Patient Education How to access health informa tion online - Detail Indication:Paronychia of finger of left hand Start:22-Sep-2017 Instruction Type:Patient Education Patient Instructions Indication:Paronychia of finger of left hand Start:22-Sep-2017 Instruction Type:Provider Instructions for Treatment How to access health informa tion online Indication:Impaired fasting glucose Start:31-May-2017 Instruction Type:Patient Education How to access health informa tion online - Detail Indication:Impaired fasting glucose Start:31-May-2017 Instruction Type:Patient Education Patient Instructions Indication:Impaired fasting glucose Start:31-May-2017 Instruction Type:Provider Instructions for Treatment How to access health informa tion online Indication:ADD (attention deficit disorder) Start:27-Jul-2016 Instruction Type:Patient Education How to access health informa tion online - Detail Indication:ADD (attention deficit disorder) Start:27-Jul-2016 Instruction Type:Patient Education Patient Instructions Indication:ADD (attention deficit disorder) Start:27-Jul-2016 Instruction Type:Provider Instructions for Treatment How to access health informa tion online Indication:ADD (attention deficit disorder) Start:21-Apr-2016 Instruction Type:Patient Education How to access health informa tion online - Detail Indication:ADD (attention deficit disorder) Start:21-Apr-2016 Instruction Type:Patient Education Patient Instructions Indication:ADD (attention deficit disorder) Start:21-Apr-2016 Instruction Type:Provider Instructions for Treatment How to access health informa tion online Indication:Hypertension, benign Start:02-Dec-2015 Instruction Type:Patient Education How to access health informa tion online - Detail Indication:Hypertension, benign Start:02-Dec-2015 Instruction Type:Patient Education Patient Instructions Indication:Hypertension, benign Start:02-Dec-2015 Instruction Type:Provider Instructions for Treatment Name Dates Details How to access health informa tion online Indication:BMI 28.0-28.9,adult Start:03-Mar-2020 Instruction Type:Patient Education How to access health informa tion online - Detail Indication:BMI 28.0-28.9,adult Start:03-Mar-2020 Instruction Type:Patient Education Patient Instructions Indication:BMI 28.0-28.9,adult Start:03-Mar-2020 Instruction Type:Provider Instructions for Treatment How to access health informa tion online Indication:Nonsmoker Start:15-Oct-2019 Instruction Type:Patient Education How to access health informa tion online - Detail Indication:Nonsmoker Start:15-Oct-2019 Instruction Type:Patient Education Patient Instructions Indication:Nonsmoker Start:15-Oct-2019 Instruction Type:Provider Instructions for Treatment How to access health informa tion online Indication:Nonsmoker Start:17-Apr-2019 Instruction Type:Patient Education How to access health informa tion online - Detail Indication:Nonsmoker Start:17-Apr-2019 Instruction Type:Patient Education Patient Instructions Indication:Nonsmoker Start:17-Apr-2019 Instruction Type:Provider Instructions for Treatment How to access health informa tion online Indication:BMI 30.0-30.9,adult Start:01-Jan-2018 Instruction Type:Patient Education Patient Instructions Indication:BMI 30.0-30.9,adult Start:01-Jan-2018 Instruction Type:Provider Instructions for Treatment How to access health informa tion online Indication:Paronychia of finger of left hand Start:22-Sep-2017 Instruction Type:Patient Education How to access health informa tion online - Detail Indication:Paronychia of finger of left hand Start:22-Sep-2017 Instruction Type:Patient Education Patient Instructions Indication:Paronychia of finger of left hand Start:22-Sep-2017 Instruction Type:Provider Instructions for Treatment How to access health informa tion online Indication:Impaired fasting glucose Start:31-May-2017 Instruction Type:Patient Education How to access health informa tion online - Detail Indication:Impaired fasting glucose Start:31-May-2017 Instruction Type:Patient Education Patient Instructions Indication:Impaired fasting glucose Start:31-May-2017 Instruction Type:Provider Instructions for Treatment How to access health informa tion online Indication:ADD (attention deficit disorder) Start:27-Jul-2016 Instruction Type:Patient Education How to access health informa tion online - Detail Indication:ADD (attention deficit disorder) Start:27-Jul-2016 Instruction Type:Patient Education Patient Instructions Indication:ADD (attention deficit disorder) Start:27-Jul-2016 Instruction Type:Provider Instructions for Treatment How to access health informa tion online Indication:ADD (attention deficit disorder) Start:21-Apr-2016 Instruction Type:Patient Education How to access health informa tion online - Detail Indication:ADD (attention deficit disorder) Start:21-Apr-2016 Instruction Type:Patient Education Patient Instructions Indication:ADD (attention deficit disorder) Start:21-Apr-2016 Instruction Type:Provider Instructions for Treatment How to access health informa tion online Indication:Hypertension, benign Start:02-Dec-2015 Instruction Type:Patient Education How to access health informa tion online - Detail Indication:Hypertension, benign Start:02-Dec-2015 Instruction Type:Patient Education Patient Instructions Indication:Hypertension, benign Start:02-Dec-2015 Instruction Type:Provider Instructions for Treatment Summary Purpose Advance Directives No Advanced Directives Records FoundNo Advanced Directives Records FoundNo Advanced Directives Records FoundNo Advanced Directives Records Found Additional Source Comments INFORMATION SOURCE (unrecogn ized section and content) DATE CREATED AUTHOR AUTHOR'S ORGANIZ ATION 10/07/2021 [facility] DATE CREATED AUTHOR AUTHOR'S ORGANIZ ATION 12/25/2022 [facility] DATE CREATED AUTHOR AUTHOR'S ORGANIZ ATION 03/03/2023 [facility] Source Comments (unrecognize d section and content) In the event this informatio n is protected by the Federal Confidentiality of Alcohol and Drug Abuse Patient Records regulations: The Federal rules restrict any use of the information to criminally investigate or prosecute any alcohol or drug abuse patient.[facility] [place] the event this information is protected by the Federal Confidentiality of Alcohol and Drug Abuse Patient Records regulations: The Federal rules restrict any use of the information to criminally investigate or prosecute any alcohol or drug abuse patient.[facility] Reason for Visit (unrecogniz ed section and content) Care Teams (unrecognized sec tion and content) 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 This clinical summary was aggregated from multiple sources. Caution should be exercised in using it in the provision of clinical care. This summary normalizes information from multiple sources, and as a consequence, information in this document may materially change the coding, format and clinical context of patient data. In addition, data may be omitted in some cases. CLINICAL DECISIONS SHOULD BE BASED ON THE PRIMARY CLINICAL RECORDS. [employer] provides no warranty or guarantee of the accuracy or completeness of information in this document.
--- NOTE | 2023-08-15 10:50 | STRESSREP ---
Stress Test Report Date: 08/11/2023 Procedure: Exercise tolerance test/imaging study Indications: Dyspnea on exertion Consent: Per the patient Procedure: The patient exercised on a Bashir protocol for 7 minutes achieving a peak heart rate of 166 bpm (107% predicted maximal heart rate) with a peak blood pressure 150/70 mmHg and a peak MET capacity of 10.1 METs. The baseline ECG demonstrated normal sinus rhythm. The peak exercise ECG demonstrated borderline ST changes in the inferior leads. There were no cardiac dysrhythmias pretest, during exercise, or recovery. The functional capacity was considered average. There was no chest pain during exercise or recovery. Mild shortness of breath was noted.. The examination was discontinued secondary to target heart rate being achieved and dyspnea. The patient was injected with 11.9 mCi of technetium 99m Cardiolite and subsequently rest SPECT Cardiolite nuclear imaging was obtained in the horizontal long, vertical long, and short axis views. Post-exercise, the patient was injected with 34.2 mCi of technetium 99m Cardiolite and subsequently stress SPECT Cardiolite nuclear imaging was obtained in the horizontal long, vertical long, and short axis views. A gated Cardiolite study at peak stress was obtained. Rest and stress SPECT Cardiolite nuclear imaging status post realignment, normalization, and attenuation correction, demonstrates the appearance of relative uniform tracer uptake and myocardial perfusion appearing within normal limits. There is end systolic thickening and brightening. The gated Cardiolite study demonstrates myocardial thickening and inward wall motion. The reported LVEF is 80%. Impression: 1. Technically adequate (percent predicted maximal heart rate greater than 85%) exercise tolerance test 2. Peak exercise ECG with borderline ST changes 3. There were no cardiac dysrhythmias pretest, during exercise, or recovery 4. Rest and stress SPECT Cardiolite nuclear imaging demonstrate relative uniform tracer uptake and myocardial perfusion appearing within normal limits. 5. The gated Cardiolite study reports an LVEF of 80%. This note was generated with [employer] software. It may contain incorrect words, spelling, and punctuation that were not noted in checking the note before signing.
== END | disposition home or self-care (01) ==
LOC: CVS 06:14
PROVIDERS: PCP Nurse Practitioner Family; Referring Provider Internal Medicine Cardiovascular Disease; Visit Provider Internal Medicine Cardiovascular Disease
DX: R06.09 Other forms of dyspnea (principal); R00.2 Palpitations; I10 Essential (primary) hypertension
CPT/HCPCS: 78452; 93017; A9500

== ENCOUNTER 2023-12-25 08:56 | Emergency (ER) | payer MEDICARE, OTHER, SELFPAY ==
[2023-12-25 08:57] VITALS: BP 140/63; PULSE 68; RESP 16; TEMP 36.6; O2SAT 98; BMI 28.5
--- NOTE | 2023-12-25 09:07 | EX.ED.UPPERE ---
HPI History of Present Illness Chief Complaint: Upper Extremity Injury Detail of Chief Complaint: Injury to right hand Informant: patient Narrative Narrative: Patient presents to the emergency department with complaint of injury to the right hand that occurred yesterday. 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 Patient now complains of pain swelling and bruising. Limited range of motion with the index finger. 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 HTN (hypertension) Incontinence Limb weakness Migraines Palpitations Sinusitis Tachycardia Vitamin B12 deficiency Vitamin D deficiency Home Medications hydrochlorothiazide 25 mg tablet 25 mg PO DAILY 04/04/16 [History Last Taken 06/22/21] duloxetine 60 mg capsule,delayed release 60 mg PO DAILY #30 caps 02/08/19 [History Last Taken 06/22/21] albuterol sulfate 90 mcg/actuation aerosol inhaler 1 puff inhalation Q4H PRN shortness of breath or wheezing 06/30/23 [History Last Taken Unknown] cholecalciferol (vitamin D3) 25 mcg (1,000 unit) capsule 25 mcg PO DAILY 06/30/23 [History Last Taken Unknown] cyanocobalamin (vitamin B-12) 2,500 mcg sublingual tablet 2,500 mcg sublingual DAILY 06/30/23 [History Last Taken Unknown] methylphenidate HCl 10 mg tablet 10 mg PO QPM 06/30/23 [History Last Taken Unknown] methylphenidate HCl 20 mg tablet 20 mg PO QAM ADHD 06/30/23 [History Last Taken Unknown] trazodone 50 mg tablet 50 mg PO QHS PRN sleep 06/30/23 [History Last Taken Unknown] losartan 50 mg tablet 50 mg PO DAILY #90 tabs 07/12/23 [Rx Last Taken Unknown] Allergy/AdvReac Type Severity Reaction Status Date / Time No Known Allergies Allergy Verified 12/25/23 08:57 Family History Grandfather Alcoholism Sister Fibromyalgia Depression Huntley's palsy Circulation problem Father Diabetes Heart disease Cancer Mother Diabetes Kidney disease 1 removed Thyroid disorder Grandfather Heart disease Other Hypertension Surgical History History of bunionectomy of both great toes History of carpal tunnel release History of lumbar fusion Hx of cholecystectomy Hx of foot surgery Social History Smoking Status: Former smoker how long ago did patient quit smokin alcohol intake: current alcohol intake frequency: a few times a week Alcohol type: beer and wine substance use type: does not use and marijuana caffeine: Yes Type: coffee Number of servings: 1 ROS ROS ED Review of Systems ROS Unobtainable: other Constitutional Constitutional ED: Reports lethargy; Denies chills, fever(s), sweats or weight loss Eyes Eyes: Denies blurry vision, change in vision or diplopia ENT ENT ED: Denies rhinorrhea or sore throat Cardiovascular Cardiovascular: Denies chest pain, orthopnea or racing heartbeat Respiratory/Chest Respiratory/Chest: Denies cough, dyspnea, dyspnea on exertion, orthopnea or sputum Gastrointestinal Gastrointestinal: Denies abdominal pain, diarrhea, nausea or vomiting Genitourinary Genitourinary ED: Denies dysuria, hematuria or urinary frequency Musculoskeletal Musculoskeletal: Reports other Details: Right hand injury/pain ; Denies arthralgias, back pain, myalgias or neck pain Integumentary Denies abscess, Abrasions or rash Neurologic Neurologic: Denies headache(s) or weakness Psychiatric Psychiatric: Denies anxiety, depression or suicidal thoughts Endocrine Endocrinology: Denies polydipsia, polyphagia or polyuria Hematologic/Lymphatic Hematologic/Lymphatic: Denies easy bleeding, easy bruising or lymphadenopathy Allergic/Immunologic Allergic/Immunologic ED: Denies mouth swelling, tongue swelling or urticaria EXAM Physical Exam Const Vital Signs: 12/25/23 08:57 Temperature 97.8 F Temperature Source Temporal Pulse Rate 68 Respiratory Rate 16 Blood Pressure 140/63 H Blood Pressure Mean 88 Pulse Ox 98 Oxygen Delivery Method Room Air Positive well nourished and well developed General Appearance ED: well developed and NAD HEENT Reports TM's clear and moist mucous membranes normocephalic and atraumatic; Negative for trauma or tenderness Tympanic Membrane ED: Yes TM's clear Eyes PERRL and EOMs intact bilaterally General Eye ED: Negative for pale conjunctiva or scleral icterus Neck no lymphadenopathy, supple and no JVD General: Negative for tenderness Chest Wall inspection of chest normal and palpation of chest normal Chest: Negative for tenderness Resp normal respiratory effort and clear to auscultation bilaterally Effort and Inspection: Negative for respiratory distress or pain with movement Auscultation: Negative for rhonchi, wheezes or diminished lung sounds Cardio regular rate, regular rhythm, S1 normal heart sound, S2 normal heart sound and no murmurs Peripheral Pulses: pulses 2+ throughout GI normal to inspection, nondistended, normoactive bowel sounds, soft to palpation, non-tender, non-distended and no masses Back/Spine no CVA tenderness and no thoracic nor lumbar tenderness Extremity Extremity Narrative: Right hand-patient has diffuse soft tissue swelling as well as ecchymosis and bruising over the index finger and MCP joint of the index finger. She has limited range of motion in flexion of the MCP joint secondary to pain and swelling. Neurovascularly intact distally. No obvious deformity. Patient also with tenderness over the second metacarpal. General Extremety ED: Negative for edema General Extremity: Negative for edema Neuro oriented x3, CN's II-XII intact bilaterally, no sensory deficits noted and gait normal Sensorium / Orientation: awake, alert, oriented to person, oriented to place and oriented to time Motor Exam: strength 5/5 throughout and strength abnormal Psych mental status grossly normal Skin no rashes or lesions noted and no wounds MDM MDM MDM Narrative Medical decision making narrative: Patient had x-rays of the right hand that were negative for fracture. At this point suspect a sprain mostly involving the index finger and MCP joint. Patient will be placed in aluminum splint. She is instructed to take ibuprofen or Tylenol for discomfort. Patient to follow-up with her primary care physician within next 1 to 10 days. Radiography Diagnostic Testing: Three-view x-rays of the right hand obtained interpreted by myself as no evidence of fracture or dislocation. Radiology in agreement. Discharge Plan Triage Chief Complaint: Upper Extremity Injury ED Provider: Angelique Munoz Dx/Rx/DC Orders Clinical Impression: Sprain of hand, right Instructions: ED Hand Sprain Prescriptions: No Action duloxetine 60 mg capsule,delayed release(DR/EC) 60 mg PO DAILY Qty: 30 methylphenidate HCl 10 mg tablet 10 mg PO QPM albuterol sulfate 90 mcg/actuation HFA aerosol inhaler 1 puff inhalation Q4H PRN (Reason: shortness of breath or wheezing) trazodone 50 mg tablet 50 mg PO QHS PRN (Reason: sleep) cyanocobalamin (vitamin B-12) 2,500 mcg tablet, sublingual 2,500 mcg sublingual DAILY cholecalciferol (vitamin D3) 25 mcg (1,000 unit) capsule 25 mcg PO DAILY losartan 50 mg tablet 50 mg PO DAILY Qty: 90 3RF hydrochlorothiazide 25 MG tablet 25 mg PO DAILY methylphenidate HCl 20 mg tablet 20 mg PO QAM Primary Care Provider: Birgit Michaud Referrals: Birgit Michaud, [employer] [Primary Care Provider] - 1 Week Disposition Disposition: Home, Self Care
--- NOTE | 2023-12-25 09:15 | RAD_ITS ---
STUDY: X-RAY - RIGHT HAND REASON FOR EXAM: Female, 68 years old. Injury. Pain to 2nd MCP area with swelling and bruising. TECHNIQUE: 3 views of the right hand. COMPARISON: None. FINDINGS: Normal radiocarpal articulation. Normal distal radioulnar joint. Normal visualized carpal bones. Normal carpal articulations. Normal carpometacarpal articulation of the thumb. Normal second through fifth carpometacarpal joints. Normal metacarpi. Normal metacarpophalangeal joint of the thumb. Normal interphalangeal joint of the thumb. Normal proximal and distal phalanges of the thumb. Normal metacarpophalangeal joints of the second through fifth fingers. Normal proximal and distal interphalangeal joints of the second through fifth fingers. Normal phalanges of the second through fifth fingers. There is no demonstrated acute fracture. There is mild soft tissue swelling along the dorsum of the hand. RAD/Hand Min 3 Views IMPRESSION: Mild soft tissue swelling along the dorsum of the hand. Electronically Signed: Russ Tovar MD at 9:29 EDT ,
[2023-12-25 09:59] VITALS: BP 127/88; PULSE 64; RESP 15; TEMP 36.8; O2SAT 97
== END 2023-12-25 10:00 | disposition home or self-care (01) ==
PROVIDERS: Emergency Provider Emergency Medicine; PCP Nurse Practitioner Family; Visit Provider Emergency Medicine
DX: S63.91XA Sprain of unspecified part of right wrist and hand, initial encounter (principal); Z87.891 Personal history of nicotine dependence; W21.02XA Struck by soccer ball, initial encounter; Y93.82 Activity, spectator at an event; Y92.89 Other specified places as the place of occurrence of the external cause; I10 Essential (primary) hypertension; Z79.899 Other long term (current) drug therapy
CPT/HCPCS: 73130; 99283

== ENCOUNTER → 2024-01-09 | Outpatient (CLI) | payer MEDICARE, OTHER, SELFPAY ==
--- NOTE | 2024-01-09 09:16 | BI_ITS ---
MAMMOGRAPHY - BILATERAL SCREENING REASON FOR EXAM: Female, 68 years old. Routine annual screening examination. PERTINENT HISTORY: Aunt with breast cancer. TECHNIQUE: Digital bilateral breast brynn (3D mammographic acquisition) in the CC and MLO projections. 2-D mediolateral oblique (MLO) and craniocaudad (CC) views of both breasts were obtained. CAD: Full Field Digital Mammography with Computer Added Detection was performed. COMPARISON: Comparison is made with prior study January 05, 2023 and August 12, 2021. FINDINGS: Breast Composition: There are scattered areas of fibroglandular density. There are no dominant masses or suspicious calcifications. No other significant abnormalities are identified. There has been no significant change since the prior study. BI/SCRN MAMM (CAD)W/BRYNN BILAT IMPRESSION: Stable bilateral screening mammogram. Yearly follow-up mammogram recommended. (A) ASSESSMENT CATEGORY: BIRADS Category 1: Negative. A letter regarding these results will be sent to the patient by the facility within 30 days. Approximately 10% of breast cancers are not detected by mammography. A normal mammogram should not delay biopsy of a clinically suspicious abnormality. [id number] Electronically Signed: Keanu Boone MD at 12:32 EDT ,
--- NOTE | 2024-01-09 09:16 | BD_ITS ---
STUDY: DUAL ENERGY X-RAY ABSORPTIOMETRY / DXA REASON FOR EXAM: Female, 68 years old. 627.8Menopausal postmenopausal BONE DENSITY REASON FOR EXAM TECHNIQUE: Bone Mineral Density (BMD) measurements of lumbar spine and bilateral hips were obtained. COMPARISON: Comparison is made with prior study dated August 12, 2021. FINDINGS: Lumbar Spine (L1-L4): g/cm2 (0.758) / T-score (-2.0) / Z-score (-0.2) Findings are suggestive of osteopenia with a moderate fracture risk. Left Femur Total: g/cm2 (0.870) / T-score (-0.6) / Z-score (0.7) Left Femoral Neck: g/cm2 (0.663) / T-score (-1.7) / Z-score (-0.1) Right Femur Total: g/cm2 (0.902) / T-score (-0.3) / Z-score (1.0) Right Femoral Neck: g/cm2 (0.656) / T-score (-1.7) / Z-score (-0.1) The T-Scores on the most recent prior examination were: Lumbar Spine (L1-L4): There has been worsening of bone density since the previous examination. Left Femur Total: which represents an improvement of 5%. Right Femur Total: which represents an improvement of 1.8%. BD/Dexa Bone Density Study IMPRESSION: The patient is considered osteopenic as outlined below according to World Sumit Organization (WHO) criteria with a moderate fracture risk. There has been improvement of bone density since the previous examination. Reference Information: The T-score is the number of standard deviations above or below the standard which is normal for young adults at their peak bone mineral density. The World Health Organization (WHO) interprets the T-scores as follows: Above -1 Normal bone density Between -1 and -2.5 Osteopenia Equal to / or below -2.5 Osteoporosis As a practical clinical guideline, osteopenia may be graded as follows: Mild -1 through -1.5 Moderate -1.6 through -2.0 Severe -2.1 through -2.4 The Z-score is the number of standard deviations above or below age-matched controls. A Z-score of less than -1.5 would be considered abnormal. References: 1. NIH Osteoporosis and Related Bone Diseases www osteo.org 2. International Society for Clinical Densitometry www iscd.org 3. National Osteoporosis Foundation www nof.org Electronically Signed: Keanu Boone MD at 13:44 EDT ,
== END | disposition home or self-care (01) ==
LOC: OPBD 09:14
PROVIDERS: PCP Nurse Practitioner Family; Referring Provider Nurse Practitioner Family; Visit Provider Nurse Practitioner Family
DX: Z12.31 Encounter for screening mammogram for malignant neoplasm of breast (principal); Z78.0 Asymptomatic menopausal state
CPT/HCPCS: 77063; 77067; 77080

== ENCOUNTER → 2024-02-20 | Outpatient (CLI) | payer MEDICARE, OTHER, SELFPAY | END | disposition home or self-care (01) | LOC: PSN 10:36 | PROVIDERS: PCP Nurse Practitioner Family; Referring Provider Nurse Practitioner Family; Visit Provider Nurse Practitioner Family | DX: R06.09 Other forms of dyspnea (principal) | CPT/HCPCS: 94060; 94726; 94729 ==